=== PATIENT | female | born 1960 ===

== ENCOUNTER 2021-06-21 08:29 | Outpatient (REF) | payer BC, SELFPAY ==
--- NOTE | ~2021-06-21 | XR_ITS ---
EXAMINATION: XR CHEST CLINICAL INFORMATION: Cough COMPARISON: None TECHNIQUE: 2 views of the chest were obtained. FINDINGS: The cardiac and mediastinal contours are normal. The lungs are clear. There is no pleural effusion or pneumothorax. Bony structures are unremarkable. XR/XR chest 2V IMPRESSION: Unremarkable examination.
[2021-06-21 11:27] LABS: Glucose Urine UA NEG (NEG); Leukocyte Esterase Urine NEG (NEG); Nitrite Urine NEG (NEG); PH 5.5 (5.0-8.0); Specific Gravity - Urine >= 1.030 (1.005-1.025); Urine Blood NEG (NEG); Urine Ketones NEG (NEG); Urine Protein NEG (NEG-TRACE)
[2021-06-21 11:36] LABS: Appearance Urine TURBID; Color Urine YELLOW
[2021-06-21 11:49] LABS: Alanine Aminotransferase 18 U/L (0-31); Albumin Level 4.3 g/dL (3.5-5.0); Alkaline Phosphatase 75 U/L (39-117); Anion Gap 12 (12-20); Aspartate Amino Transferase 18 U/L (5-31); Bilirubin Total 0.4 mg/dL (0.0-1.0); Blood Urea Nitrogen 13 mg/dL (9-16); Calcium 9.3 mg/dL (8.4-10.2); Carbon Dioxide 26 mmol/L (22-29); Chloride 108 mmol/L (96-108); Cholesterol 206 mg/dL; Estimated Glomerular Filt Rate > 60; Glucose Fasting 93 mg/dL (60-99); HDL Cholesterol 44 mg/dL; LDL Cholesterol Calculated 113 mg/dl; Potassium 4.2 mmol/L (3.3-5.1); Sodium 142 mmol/L (135-145); Triglycerides 246 mg/dL
[2021-06-21 11:58] LABS: Hematocrit 43.4 % (37-47); Hemoglobin 14.1 g/dl (12.0-16.0); Mean Corpuscular HGB Conc 32.5 g/dl (31.0-35.0); Mean Corpuscular Hemoglobin 30.1 pg (27.0-33.0); Mean Corpuscular Volume 92.7 fL (80-98); Mean Platelet Volume 10.6 fL (9.4-12.3); Platelet Count 246 X10*3/uL (160-400); Red Blood Count 4.68 X10*6/uL (4.20-5.50); Red Cell Distribution Width 13.1 % (11.0-16.0); White Blood Count 7.6 X10*3/uL (4.8-10.8)
[2021-06-21 12:05] LABS: Amorphous Sediment Urine 3+ /LPF; Bacteria Urine TRACE /LPF; RBC Urine 0 /HPF (0); Squamous Epithelial Cell Urine 1+ /LPF; WBC Urine 0 /HPF (0-4)
== END 2021-06-21 08:30 | disposition home or self-care (01) ==
LOC: HO.HMGCX 08:29
PROVIDERS: PCP Internal Medicine; Visit Provider Internal Medicine
DX: Z00.00 Encounter for general adult medical examination without abnormal findings (principal); R05 Cough; R10.9 Unspecified abdominal pain
CPT/HCPCS: 36415; 71046; 80053; 80061; 81001; 85027

== ENCOUNTER 2021-07-05 09:00 | Outpatient (REF) | payer BC, SELFPAY ==
--- NOTE | ~2021-07-05 | US_ITS ---
EXAMINATION: US ABDOMEN COMPLETE CLINICAL INFORMATION: Unspecified abdominal pain. COMPARISON: None. TECHNIQUE: Real-time imaging of the abdominal viscera. FINDINGS: PANCREAS: Normal. ABDOMINAL AORTA: The proximal, mid, and distal segments are normal in caliber. INFERIOR VENA CAVA: Visualized portions are normal. LIVER: The liver is normal in size. The liver contour is normal. Increased hepatic parenchymal echogenicity. No focal hepatic lesion. There is no intrahepatic biliary duct dilatation seen. GALLBLADDER: Normal. The gallbladder is physiologically distended without evidence of stones, sludge, polyps, wall thickening or pericholecystic fluid. COMMON BILE DUCT: Normal in caliber measuring 0.53 cm in diameter. RIGHT KIDNEY: Probable small parapelvic cysts. No hydronephrosis or renal calculi. The kidney measures 11.9 cm in maximum dimension. LEFT KIDNEY: Probable small parapelvic cysts. No hydronephrosis or renal calculi. The kidney measures 11.7 cm in maximum dimension. SPLEEN: Normal. The spleen measures 9.2 cm in maximum dimension. FREE FLUID: None. US/US abdomen complete IMPRESSION: Probable small parapelvic renal cysts. Findings are not clinically significant and no follow-up imaging is recommended. Increased hepatic parenchymal echogenicity, which can be seen in the setting of steatosis. Underlying hepatocellular disease cannot be excluded. No hepatic parenchyma lesion or biliary ductal dilatation. Otherwise unremarkable examination.
== END 2021-07-05 09:01 | disposition home or self-care (01) ==
LOC: HO.HMGCX 09:00
PROVIDERS: PCP Internal Medicine; Visit Provider Internal Medicine
DX: Z00.00 Encounter for general adult medical examination without abnormal findings (principal); R10.9 Unspecified abdominal pain; R05 Cough
CPT/HCPCS: 76700

== ENCOUNTER 2021-07-19 09:08 | Outpatient (REF) | payer BC, SELFPAY ==
[2021-07-21 08:15] LABS: SARS COV2 IgG Negative (Negative)
== END 2021-07-19 09:09 | disposition home or self-care (01) ==
LOC: HO.HMGCLDS 09:08
PROVIDERS: PCP Internal Medicine; Visit Provider Internal Medicine
DX: Z20.822 Contact with and (suspected) exposure to COVID-19 (principal)
CPT/HCPCS: 36415; 86769

== ENCOUNTER 2021-12-14 10:47 | Outpatient (REF) | payer BC, SELFPAY ==
--- NOTE | ~2021-12-14 | XR_ITS ---
EXAMINATION: XR SHOULDER, RIGHT CLINICAL INFORMATION: Pain. COMPARISON: None TECHNIQUE: AP external rotation, Grashey, scapular Y, and axillary views of the right shoulder. FINDINGS: Bony mineralization is normal. The glenohumeral joint is intact and shows very mild peripheral osteophyte formation. The acromioclavicular and coracoclavicular intervals are normal. No fracture or dislocation is seen. There is a downsloping acromion, with small distal acromial undersurface osteophyte. There is subchondral sclerosis of the greater tuberosity of the proximal right humerus. No soft tissue calcifications is seen. There is no foreign body. No right pneumothorax is seen. XR/XR shoulder RT min 2V IMPRESSION: 1. No fracture or dislocation is seen. 2. There is very mild osteoarthritic change of the left glenohumeral joint. 3. Findings suggest possible right rotator cuff impingement. No calcific tendinitis is noted.
[2021-12-14 13:52] LABS: Hematocrit 41.7 % (37.0-47.0); Hemoglobin 13.5 g/dl (12.0-16.0); Mean Corpuscular HGB Conc 32.4 g/dl (31.0-35.0); Mean Corpuscular Hemoglobin 29.6 pg (27.0-33.0); Mean Corpuscular Volume 91.4 fL (80.0-98.0); Mean Platelet Volume 10.2 fL (9.4-12.3); Platelet Count 286 X10*3/uL (160-400); Red Blood Count 4.56 X10*6/uL (4.20-5.50); Red Cell Distribution Width 12.8 % (11.0-16.0); White Blood Count 7.5 X10*3/uL (4.8-10.8)
[2021-12-14 14:19] LABS: Alanine Aminotransferase 22 U/L (0-31); Albumin Level 4.1 g/dL (3.5-5.0); Alkaline Phosphatase 67 U/L (39-117); Anion Gap 12 (12-20); Aspartate Amino Transferase 21 U/L (5-31); Bilirubin Total 0.4 mg/dL (0.0-1.0); Blood Urea Nitrogen 16 mg/dL (9-16); Calcium 9.1 mg/dL (8.4-10.2); Carbon Dioxide 25 mmol/L (22-29); Chloride 107 mmol/L (96-108); Cholesterol 223 mg/dL; Estimated Glomerular Filt Rate > 60; Glucose Fasting 90 mg/dL (60-99); HDL Cholesterol 50 mg/dL; LDL Cholesterol Calculated 142 mg/dl; Potassium 4.3 mmol/L (3.3-5.1); Sodium 140 mmol/L (135-145); Total Protein 6.9 g/dL (6.5-8.0); Triglycerides 159 mg/dL
[2021-12-14 14:28] LABS: TSH reflex Free T4 1.32 uIU/mL (0.32-4.0)
[2021-12-14 14:49] LABS: Estimated Average Glucose 120 mg/dL; Hemoglobin A1C 142.6367 umol/L; Hemoglobin A1c % 5.8 %
== END 2021-12-14 10:48 | disposition home or self-care (01) ==
LOC: HO.HMGCX 10:47
PROVIDERS: PCP Internal Medicine; Visit Provider Internal Medicine
DX: Z00.00 Encounter for general adult medical examination without abnormal findings (principal); M25.511 Pain in right shoulder
CPT/HCPCS: 36415; 73030; 80053; 80061; 83036; 84443; 85027

== ENCOUNTER 2022-04-06 10:43 | Outpatient (REF) | payer BC, SELFPAY ==
--- NOTE | ~2022-04-06 | XR_ITS ---
EXAMINATION: XR CHEST CLINICAL INFORMATION: Cough COMPARISON: Previous chest x-ray June 2021 TECHNIQUE: 2 views of the chest were obtained. FINDINGS: No significant abnormality is noted involving the heart, lungs, mediastinum, bony thorax or soft tissues. XR/XR chest 2V IMPRESSION: Unremarkable examination.
[2022-04-06 13:56] LABS: Hematocrit 43.3 % (37.0-47.0); Hemoglobin 14.5 g/dl (12.0-16.0); Mean Corpuscular HGB Conc 33.5 g/dl (31.0-35.0); Mean Corpuscular Hemoglobin 30.1 pg (27.0-33.0); Mean Platelet Volume 10.1 fL (9.4-12.3); Platelet Count 294 X10*3/uL (160-400); Red Blood Count 4.81 X10*6/uL (4.20-5.50); White Blood Count 8.6 X10*3/uL (4.8-10.8)
[2022-04-06 14:08] LABS: Alanine Aminotransferase 33 U/L (0-31); Albumin Level 4.2 g/dL (3.5-5.0); Alkaline Phosphatase 74 U/L (39-117); Anion Gap 13 (12-20); Aspartate Amino Transferase 24 U/L (5-31); Bilirubin Total 0.6 mg/dL (0.0-1.0); Blood Urea Nitrogen 10 mg/dL (9-16); Calcium 9.4 mg/dL (8.4-10.2); Carbon Dioxide 26 mmol/L (22-29); Chloride 105 mmol/L (96-108); Estimated Glomerular Filt Rate > 60; Glucose Fasting 90 mg/dL (60-99); Potassium 3.9 mmol/L (3.3-5.1); Sodium 140 mmol/L (135-145); Total Protein 7.1 g/dL (6.5-8.0)
== END 2022-04-06 10:44 | disposition home or self-care (01) ==
LOC: HO.HMGCX 10:43
PROVIDERS: PCP Internal Medicine; Visit Provider Internal Medicine
DX: R05.9 Cough, unspecified (principal); R10.9 Unspecified abdominal pain
CPT/HCPCS: 36415; 71046; 80053; 85027

== ENCOUNTER 2022-05-10 08:56 | Outpatient (REF) | payer BC, SELFPAY ==
--- NOTE | ~2022-05-10 | US_ITS ---
EXAMINATION: US ABDOMEN COMPLETE CLINICAL INFORMATION: Unspecified abdominal pain. COMPARISON: Ultrasound abdomen complete 07/05/2021. TECHNIQUE: Real-time imaging of the abdominal viscera. FINDINGS: PANCREAS: Normal. ABDOMINAL AORTA: The proximal, mid, and distal segments are normal in caliber. INFERIOR VENA CAVA: Visualized portions are normal. LIVER: The liver is normal in size. The liver contour is normal. There is diffuse increased echogenicity of the liver without focal lesion. No focal hepatic lesion. There is no intrahepatic biliary duct dilatation seen. GALLBLADDER: Normal. The gallbladder is physiologically distended without evidence of stones, sludge, polyps, wall thickening or pericholecystic fluid. COMMON BILE DUCT: Normal in caliber measuring 0.6 cm in diameter. RIGHT KIDNEY: There is an anechoic cyst versus a dilated calyx in the midpole. No hydronephrosis or renal calculi. The kidney measures 12.2 cm in maximum dimension. LEFT KIDNEY: There is an extrarenal left kidney pelvis. No hydronephrosis. No renal calculi or focal parenchymal lesions. The kidney measures 11.7 cm in maximum dimension. SPLEEN: Normal. The spleen measures 9.7 cm in maximum dimension. FREE FLUID: None. US/US abdomen complete IMPRESSION: Mild hepatic steatosis without focal lesion. Prominent midpole right renal calyx versus a small peripelvic cyst. No major change compared to previous ultrasound 07/05/2021.
== END 2022-05-10 08:57 | disposition home or self-care (01) ==
LOC: HO.HMGCX 08:56
PROVIDERS: PCP Internal Medicine; Visit Provider Internal Medicine
DX: R10.9 Unspecified abdominal pain (principal)
CPT/HCPCS: 76700

== ENCOUNTER 2022-08-01 11:51 | Outpatient (REF) | payer BC, SELFPAY ==
[2022-08-01 12:48] LABS: Lipase 27 U/L (8-78)
[2022-08-01 13:14] LABS: Folate 10.9 ng/mL (> or = 4.0); Vitamin B12 413 pg/mL (200-900)
[2022-08-03 14:37] LABS: Immunoglobulin A 139 mg/dL (70-320)
[2022-08-03 21:31] LABS: Transglutaminase Ab IgG <1.0 U/mL; Transglutaminase IgA <1.0 U/mL
[2022-08-04 12:17] LABS: Vitamin D 25-OH, D2 <4 ng/mL; Vitamin D 25-OH, D3 20 ng/mL; Vitamin D 25-OH, Total 20 ng/mL (30-100)
== END 2022-08-01 11:52 | disposition home or self-care (01) ==
LOC: HO.LAB 11:51
PROVIDERS: PCP Internal Medicine; Visit Provider Nurse Practitioner Family
DX: R19.7 Diarrhea, unspecified (principal); E55.9 Vitamin D deficiency, unspecified; R10.9 Unspecified abdominal pain
CPT/HCPCS: 36415; 82306; 82607; 82746; 82784; 83690; 86364

== ENCOUNTER 2022-08-03 09:35 | Outpatient (REF) | payer BC, SELFPAY ==
[2022-08-03 11:21] LABS: Appearance Urine Clear; Color Urine Yellow; Glucose Urine UA Negative (Negative); Leukocyte Esterase Urine Small (1+) (Negative); Nitrite Urine Negative (Negative); UMIC TRIGGER UACC YES; Urine Blood Moderate (2+) (Negative); Urine Ketones Negative (Negative); Urine Protein Negative (Neg-Trace)
[2022-08-03 11:42] LABS: Bacteria Urine None Seen (None Seen); Hyaline Casts Urine 0-2 /LPF (0-2); Squamous Epithelial Cell Urine 0-2 /HPF (0-2); UACC Culture Trigger YES; WBC Urine 0-5 /HPF (0-5)
[2022-08-09 18:11] LABS: Pancreatic Elastase-1 >500 mcg/g
== END 2022-08-03 09:36 | disposition home or self-care (01) ==
LOC: HO.HMGCLDS 09:35
PROVIDERS: Absent Provider Internal Medicine; PCP Internal Medicine; Visit Provider Nurse Practitioner Family
DX: K21.9 Gastro-esophageal reflux disease without esophagitis (principal); R10.9 Unspecified abdominal pain
CPT/HCPCS: 81001; 82656; 87086; 87338

== ENCOUNTER 2022-08-09 11:31 | Outpatient (REF) | payer BC, SELFPAY ==
[2022-08-09 16:54] LABS: Appearance Urine Clear; Color Urine Yellow; Glucose Urine UA Negative (Negative); Leukocyte Esterase Urine Trace (Negative); Nitrite Urine Negative (Negative); PH 5.5 (5.0-9.0); UMIC TRIGGER UACC YES; Urine Blood Negative (Negative); Urine Ketones Negative (Negative); Urine Protein Negative (Neg-Trace)
[2022-08-09 16:57] LABS: Bacteria Urine None Seen (None Seen); Hyaline Casts Urine 0-2 /LPF (0-2); RBC Urine 0-2 /HPF (0-2); Squamous Epithelial Cell Urine 0-2 /HPF (0-2); WBC Urine 0-5 /HPF (0-5)
== END 2022-08-09 11:32 | disposition home or self-care (01) ==
LOC: HO.HMGCLDS 11:31
PROVIDERS: Absent Provider Nurse Practitioner Family; PCP Internal Medicine; Visit Provider Internal Medicine
DX: R32 Unspecified urinary incontinence (principal)
CPT/HCPCS: 81001

== ENCOUNTER 2022-12-06 10:31 | Outpatient (REF) | payer BC, SELFPAY ==
[2022-12-06 14:03] LABS: MANUAL DIFF FLAG NO
[2022-12-06 14:08] LABS: Appearance Urine Clear; Color Urine Yellow; Glucose Urine UA Negative (Negative); Leukocyte Esterase Urine Negative (Negative); Nitrite Urine Negative (Negative); Specific Gravity - Urine <= 1.005 (1.005-1.025); Urine Blood Negative (Negative); Urine Ketones Negative (Negative); Urine Protein Negative (Neg-Trace)
[2022-12-06 14:10] LABS: Basophils Absolute Auto 0.1 X10*3/uL (0.0-0.2); Basophils Percent Auto 0.6 % (0-2); Eosinophils Absolute Auto 0.6 X10*3/uL (0.0-0.4); Eosinophils Percent Auto 7.4 % (0-4); Hematocrit 43.3 % (37.0-47.0); Hemoglobin 14.4 g/dl (12.0-16.0); Imm Gran Abs Auto 0.02 X10*3/uL (0.00-0.03); Imm Gran Pct Auto 0.2 % (0.0-0.4); Lymphocytes Absolute Auto 3.1 X10*3/uL (1.2-4.9); Lymphocytes Percent Auto 38.5 % (20-40); Mean Corpuscular HGB Conc 33.3 g/dl (31.0-35.0); Mean Corpuscular Hemoglobin 30.3 pg (27.0-33.0); Mean Corpuscular Volume 91.2 fL (80.0-98.0); Mean Platelet Volume 10.9 fL (9.4-12.3); Monocytes Absolute Auto 0.8 X10*3/uL (0.1-1.2); Monocytes Percent Auto 10.2 % (2-11); Neutrophils Absolute Auto 3.5 x10*3/uL (2.0-8.3); Neutrophils Percent Auto 43.1 % (45-73); Platelet Count 254 X10*3/uL (160-400); Red Blood Count 4.75 X10*6/uL (4.20-5.50); Red Cell Distribution Width 13.1 % (11.0-16.0)
[2022-12-06 15:46] LABS: Alanine Aminotransferase 23 U/L (0-31); Albumin Level 4.2 g/dL (3.5-5.0); Anion Gap 12 (12-20); Aspartate Amino Transferase 23 U/L (5-31); Bilirubin Total 0.6 mg/dL (0.0-1.0); Blood Urea Nitrogen 16 mg/dL (9-16); Calcium 9.2 mg/dL (8.4-10.2); Carbon Dioxide 26 mmol/L (22-29); Chloride 105 mmol/L (96-108); Cholesterol 260 mg/dL; Estimated Glomerular Filt Rate > 60; Glucose Fasting 92 mg/dL (60-99); HDL Cholesterol 50 mg/dL; LDL Cholesterol Calculated 180 mg/dl; Potassium 4.3 mmol/L (3.3-5.1); Sodium 139 mmol/L (135-145); TSH reflex Free T4 1.58 uIU/mL (0.32-4.0); Triglycerides 151 mg/dL
[2022-12-06 16:17] LABS: Alkaline Phosphatase 81 U/L (39-117)
== END 2022-12-06 10:32 | disposition home or self-care (01) ==
LOC: HO.HMGCLDS 10:31
PROVIDERS: Visit Provider Internal Medicine
DX: Z00.00 Encounter for general adult medical examination without abnormal findings (principal); R32 Unspecified urinary incontinence
CPT/HCPCS: 36415; 80053; 80061; 81003; 84443; 85025

== ENCOUNTER 2022-12-07 10:00 | Outpatient (RCR) | payer BC, SELFPAY ==
--- NOTE | 2022-11-25 14:22 | MHC.PT.EP ---
[facility] [place] Office [place] Office [place] Office [address] Fito Vieyra [address] [phone] F: [phone] F: [phone] F: [phone] F: [phone] Physical Therapy Plan of Care Date of Evaluation: Date of Surgery: Diagnosis: Dorsalgia/Low back pain Assessment: Patient is a 62 year old R handed German speaking female who presents with s/s consistent with dorsalgia, low back pain. 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 She had pain following a hysterectomy in July. Patient past medical history includes GERD. Current impairments include pain, posture, ROM, strength, body mechanics, activity tolerance and functional mobility. Functional limitations include decreased ability to sleep, sit, bend, lift, walk and work . Patient is motivated with good rehab potential. Skilled PT will address impairments and functional limitations in order to achieve goals. Frequency and Duration: The patient will be seen 2x/week for 5 weeks Short Term Goals: I with HEP - 2 weeks pain free rotation 75% b/l - 3 weeks Able to sleep >5 hours without pain waking pt up - 3 weeks Net Fisher Goals: Oswestry 20% or less - 5 weeks Pain free RTW - 5 weeks TTP absent - 5 weeks Demo proper floor to waist lift mechanics 15# - 5 weeks Treatment Plan: Modalities to reduce pain, spasms and effusion. Manual therapy to restore motion and function. Therapeutic exercise to improve strength and flexibility. Neuromuscular re-education for posture and balance. Therapeutic activities to return to functional activities of daily living. Electronically signed by: Pedrito Wells, PT Please sign and return to therapist. Thank you for your referral.
--- NOTE | 2023-01-27 08:53 | MHC.PT.DC ---
[facility] [place] Office [place] Office [place] Office [address] Fito Vieyra [address] [phone] F: [phone] F: [phone] F: [phone] F: [phone] Physical Therapy Discharge Report Diagnosis: Dorsalgia/Low back pain Date of Surgery: Date of Evaluation: 11/25/22 Date of Discharge: 12/18/22 Treatments to Date: 5 Cancellations to Date: No Shows to Date: Discharge Status: Improved Function Independent with HEP Patient Elected to Stop Discharge Summary: 12/07/22: pt progressing well with skilled PT. reduced ttp and progressed strength ex. 12/05/22: pt has been noticing reduction in s/s. we will continue to progress as tolerated with strength and flex. 11/30/22: pt notes maybe slight improvement. we did update HEP today and added postural ex. pt requires cues for correcting mechanics. limited positional awareness. 11/28/22: no change in s/s today. we will add to HEP NV with stretching as long as pt responds well after today. Patient is a 62 year old R handed Luxembourgish speaking female who presents with s/s consistent with dorsalgia, low back pain. 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 She had pain following a hysterectomy in July. Patient past medical history includes GERD. Current impairments include pain, posture, ROM, strength, body mechanics, activity tolerance and functional mobility. Functional limitations include decreased ability to sleep, sit, bend, lift, walk and work . Patient is motivated with good rehab potential. Skilled PT will address impairments and functional limitations in order to achieve goals. Electronically signed by: Pedrito Wells, PT Please sign and return to therapist. Thank you for your referral.
== END 2023-01-27 08:54 | disposition home or self-care (01) ==
LOC: HO.PTCHIC 10:00
PROVIDERS: PCP Internal Medicine; Visit Provider Internal Medicine
DX: M54.9 Dorsalgia, unspecified (principal)
CPT/HCPCS: 97110; 97140; 97161

== ENCOUNTER 2023-02-13 10:10 | Outpatient (REF) | payer BC, SELFPAY ==
--- NOTE | ~2023-02-13 | XR_ITS ---
EXAMINATION: XR CHEST CLINICAL INFORMATION: Cough. COMPARISON: Most recent chest radiograph dated 04/06/2022. TECHNIQUE: 2 views of the chest were obtained. FINDINGS: The lungs are clear. The cardiomediastinal silhouette is normal in size. There is no pleural effusion or pneumothorax. No acute osseous abnormality. XR/XR chest 2V IMPRESSION: No acute cardiopulmonary findings.
== END 2023-02-13 10:11 | disposition home or self-care (01) ==
LOC: HO.HMGCX 10:10
PROVIDERS: PCP Internal Medicine; Visit Provider Internal Medicine
DX: R05.9 Cough, unspecified (principal)
CPT/HCPCS: 71046

== ENCOUNTER 2023-03-06 09:39 | Outpatient (REF) | payer BC, SELFPAY ==
[2023-03-06 12:05] LABS: Alanine Aminotransferase 21 U/L (0-31); Albumin Level 4.2 g/dL (3.5-5.0); Alkaline Phosphatase 82 U/L (39-117); Anion Gap 11 (12-20); Aspartate Amino Transferase 20 U/L (5-31); Bilirubin Total 0.7 mg/dL (0.0-1.0); Blood Urea Nitrogen 14 mg/dL (9-16); Carbon Dioxide 25 mmol/L (22-29); Chloride 109 mmol/L (96-108); Cholesterol 231 mg/dL; Estimated Glomerular Filt Rate > 60; Glucose Fasting 97 mg/dL (60-99); HDL Cholesterol 49 mg/dL; LDL Cholesterol Calculated 147 mg/dl; Potassium 4.3 mmol/L (3.3-5.1); Sodium 141 mmol/L (135-145); Total Protein 6.8 g/dL (6.5-8.0); Triglycerides 175 mg/dL
== END 2023-03-06 09:40 | disposition home or self-care (01) ==
LOC: HO.HMGCLDS 09:39
PROVIDERS: PCP Internal Medicine; Visit Provider Internal Medicine
DX: E78.5 Hyperlipidemia, unspecified (principal)
CPT/HCPCS: 36415; 80053; 80061

== ENCOUNTER 2023-04-20 10:31 | Outpatient (REF) | payer BC, SELFPAY ==
[2023-04-20 14:20] LABS: Appearance Urine Turbid; Color Urine Yellow; Glucose Urine UA Negative (Negative); Leukocyte Esterase Urine Negative (Negative); Nitrite Urine Negative (Negative); PH 5.5 (5.0-9.0); Urine Blood Negative (Negative); Urine Ketones Negative (Negative); Urine Protein Negative (Neg-Trace)
== END 2023-04-20 10:32 | disposition home or self-care (01) ==
LOC: HO.HMGCLDS 10:31
PROVIDERS: PCP Internal Medicine; Visit Provider Internal Medicine
DX: R32 Unspecified urinary incontinence (principal)
CPT/HCPCS: 81003

== ENCOUNTER 2023-05-01 07:03 | Day surgery (SDC) | payer BC, SELFPAY ==
[2023-04-27 10:06] VITALS: BMI 31.8
[2023-05-01 07:18] VITALS: BMI 31.2
[2023-05-01 07:36] VITALS: BP 149/87; PULSE 65; RESP 16; TEMP 36.7; O2SAT 96
--- NOTE | 2023-05-01 07:40 | P.CONAN_ITS ---
Documented by User: Yue Bravo NP 04/28/23 12:29 HPI - Anesthesia Eval Consult details Narrative: 63yo F for Upper Endoscopy and Colonoscopy PMFSH Active Problems Active Problems: All Active Problems (Updated 03/02/23 @ 11:51 by Ursula Squires MD) Asthma (Acute) Allergic reaction (Acute) Hyperlipidemia (Acute) Endometrial adenocarcinoma (Acute) Postmenopausal bleeding (Acute) Back pain (Acute) Urinary incontinence (Acute) Hx of colonoscopy (Acute) Shoulder pain, right (Acute) Normal pelvic exam (Acute) Normal breast exam (Acute) Upper respiratory tract infection (Acute) GERD (gastroesophageal reflux disease) (Acute) Annual physical exam (Acute) Cough (Acute) Abdominal pain (Acute) Past Medical History Medical History Abdominal pain Annual physical exam Cough GERD (gastroesophageal reflux disease) Normal breast exam Normal pelvic exam Shoulder pain, right Family History Family History Father No problems noted. Mother No problems noted. 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 Current occupational exposures/hazards: No Cognitive needs: No Hearing needs: No Vision needs: No Meds Allergies Allergy/AdvReac Type Severity Reaction Status Date / Time pravastatin AdvReac Intermediate myalgia Verified 03/02/23 11:15 Exam Exam Date and Time: April 28, 2023 1227 Height,Weight and Vital Signs: Height 5 ft Weight 73.936 kg Pertinent Lab Results Pertinent Lab Results: Laboratory Tests 12/06/22 03/06/23 11:01 09:42 WBC 8.0 Hgb 14.4 Hct 43.3 Plt Count 254 Sodium 141 Potassium 4.3 Chloride 109 H Carbon Dioxide 25 BUN 14 Creatinine 0.72 Assessment and Plan Assessment Anesthesia Assessment: Chart Reviewed Documented by User: Catie Morrison DO 05/01/23 07:51 PMFSH Past Medical History Medical History Abdominal pain Annual physical exam Cough GERD (gastroesophageal reflux disease) Normal breast exam Normal pelvic exam Shoulder pain, right Family History Family History Father No problems noted. Mother No problems noted. 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 Current occupational exposures/hazards: No Cognitive needs: No Hearing needs: No Vision needs: No Meds Allergies Allergy/AdvReac Type Severity Reaction Status Date / Time pravastatin AdvReac Intermediate myalgia Verified 03/02/23 11:15 Exam Exam Date and Time: May 01, 2023 0737 Height,Weight and Vital Signs: Height 5 ft Weight 73.936 kg Vital Signs Temperature 98.1 F 05/01/23 07:36 Pulse Rate 65 05/01/23 07:36 Respiratory Rate 16 05/01/23 07:36 Blood Pressure 149/87 H 05/01/23 07:36 Pulse Oximetry 96 05/01/23 07:36 Oxygen Delivery Method Room Air 05/01/23 07:36 Temperature 98.1 F 05/01/23 07:36 Pulse Rate 65 05/01/23 07:36 Respiratory Rate 16 05/01/23 07:36 Blood Pressure 149/87 H 05/01/23 07:36 Pulse Oximetry 96 05/01/23 07:36 Oxygen Delivery Method Room Air 05/01/23 07:36 Airway Mallampati Class: II TM Dist: >3cm Neck ROM: Full Denture: Upper and Lower Heart: S1S2 Lungs: CTAB Assessment and Plan Assessment Anesthesia Assessment: Anesthesia Plan Discussed and Chart Reviewed Final Anesthetic Review History of Problems with Anesthesia: Yes (PONV) NPO: Yes ASA Class: II Final Preanesthetic Review: No Changes in Pt Med Stat, Meds/Allgs Chart Reviewed, Consent Obtained/Reviewed and Anes Risks/Benef Reviewed Patient Risk: Low Procedure Risk: Low Anesthetic Plan Anesthetic Plan: MAC: and Agree w/ Assess. and Plan Disposition: Standard PACU
--- NOTE | 2023-05-01 08:26 | MHC.SHP ---
Pre-Procedural Eval Section A Date of Service: 05/01/23 The patient is an INPATIENT: No The History & Physical has been completed within 30 days and I have reviewed it.: No Section B Chief Complaint: Abdominal distension (gaseous),reflux disease Relevant Family History (Specify if Yes): No Relevant Social History: None Present Medications: see Short Stay Collaborative assessment Medical History: Significant History (Cough GERD (gastroesophageal reflux disease) Normal breast exam Normal pelvic exam Shoulder pain, right) History of Previous Operations: Relevant previous surgery/procedure and date(s) (hx of colonoscopy) Allergies: Allergies Allergy/AdvReac Type Severity Reaction Status Date / Time pravastatin AdvReac Intermediate myalgia Verified 03/02/23 11:15 Review of Systems Sugical H&P ROS: Negative: Constitution, Cardiovascular, Respiratory and Gastrointestinal Exam Surgical H&P Exam: Normal: Heart, Normal: Lungs, Normal: Extremities and Normal: Abdomen Plan Diagnosis/Plan: Unchanged I have reviewed the history and physical and performed a pertinent physical examination on my patient. No changes have occurred unless specified. Time Spent With Patient Time: Total time managing care of this patient today ____ minutes.
--- NOTE | 2023-05-01 08:32 | P.BOP_ITS ---
Brief Operative Note Date of Service: 05/01/23 Pre-op diagnosis: screening, abdominal bloating, GERD Post-op diagnosis: other ( GERD, gastritis, diverticulosis?) Procedure: FLEXIBLE TRANSORAL UPPER GASTROINTESTINAL ENDOSCOPY WITH BIOPSIES AND COLONOSCOPY TILL CECUM Surgeon: Alexa Becerril MD Anesthesia: MAC Was an Medical Staff Services Manager used for this Procedure?: Yes Medical Staff Services Manager: Merline Bailon Estimated blood loss (mL): 0 Pathology: other (A. small bowel bxs, R/O celiac B. gastric antrum bxs, R/O H. pylori C. gastric body bxs) Condition: stable Disposition: PACU
--- NOTE | 2023-05-01 08:33 | P.OP_ITS ---
Operative Note Operative Note Date of Service: 05/01/23 Narrative: FLEXIBLE TRANSORAL UPPER GASTROINTESTINAL ENDOSCOPY WITH BIOPSIES AND COLONOSCOPY TILL CECUM Pre-op diagnosis: screening, GERD, postprandial bloating Post-op diagnosis: GERD, gastritis, diverticulosis? Endoscopist:? Alexa Becerril MD Anesthesia:?MAC UPPER ENDOSCOPY Consent: Indications for the procedure and potential complications of bleeding, perforation, reaction to medications and missed diagnosis were discussed with the patient and informed consent was obtained. Instrument: Olympus GIF H 190 mid size upper endoscope Monitoring: Vital signs and clinical assessment, continuous EKG monitoring, Pulse oximetry, Carbon Dioxide monitoring and blood pressure monitoring were done throughout the procedure. Procedure: The patient was placed in the left lateral decubitis position and pre-procedure medications were administered and a bite block was placed. The endoscope was inserted into the mouth and advanced under direct vision to the third part of duodenum. A careful inspection was made as the upper endoscope was withdrawn including a retroflexed examination of the proximal stomach; Findings and interventions are described below. Findings: Larynx: Normal Esophagus: GE junction at 35 cms. No esophagitis or Jackson's. Stomach: Moderate diffuse gastric erythema. Biopsies were obtained. Grade 2 flap valve on retroflexed examination of the cardia. Duodenum: Normal bulb and descending duodenum. Biopsies were obtained from 3rd part of duodenum to check for celiac sprue. Intervention: Biopsies as noted above COLONOSCOPY PROCEDURE NOTE Consent: Indications for the procedure and potential complications of bleeding, perforation, reaction to medications and missed diagnosis were discussed with the patient and informed consent was obtained. Instrument: Olympus PCF H 190 L variable stiffness pediatric colonoscope Monitoring: Vital signs and clinical assessment, intermittent blood pressure monitoring, continuous EKG monitoring, Pulse oximetry and Carbon Dioxide monitoring were done throughout the procedure. Colon withdrawl time was 11 minutes. Procedure: The patient was placed in the left lateral decubitis position and pre-procedure medications were administered. After a digital rectal examination of the ano-rectum, the video colonoscope was inserted into the rectum and advanced through the colon to the cecum. The colonoscope was slowly withdrawn in a retrograde panoramic fashion and the colon mucosa was carefully examined including a retroflexed view of the rectum. Findings and interventions are described below. Procedure Difficulty: : Without difficulty Findings: Terminal Ileum: Not evaluated Cecum: Normal Ascending Colon: Normal Transverse Colon: Normal Descending Colon: Normal Sigmoid Colon: Moderate diverticulosis Rectum: Normal Ano-rectum: Normal Colon preparation: Good after copious irrigation and fair in the left colon due to undigested vegetable matter which could not be suctioned. Impression and Post Procedure Diagnosis: Endoscopy Findings: STOMACH: moderate diffuse gastritis. DUODENUM: normal - biopsied to check for celiac sprue Colonoscopy Findings: No polyps were detected. Moderate diverticulosis seen in the sigmoid colon Plan: Await pathology results Patient has an appointment on 05/16/23 in the [facility] with Valentina Yang FNP- [facility]. Repeat Colonoscopy interval based on path results - in 5 years due to fair prep in the left colon. Above findings were reviewed with the patient and GERD and diverticulosis handouts were given in the discharge area
[2023-05-01 09:15] VITALS: BP 116/86; PULSE 79; RESP 18; TEMP 36.1; O2SAT 98
[2023-05-01 09:30] VITALS: BP 116/86; PULSE 62; RESP 18; TEMP 36.6; O2SAT 96
[2023-05-01 09:45] VITALS: BP 110/89; PULSE 56; RESP 18; TEMP 36.6; O2SAT 98
--- NOTE | 2023-05-01 10:18 | PC.NURSE ---
vaishali metal building assembler present for discharge instructions.
== END 2023-05-01 10:18 | disposition home or self-care (01) ==
PROVIDERS: PCP Internal Medicine; Visit Provider Internal Medicine Gastroenterology
PROC: (CPT 45378; principal; 2023-05-01 08:30)
DX: Z12.11 Encounter for screening for malignant neoplasm of colon (principal); R14.0 Abdominal distension (gaseous); K57.30 Diverticulosis of large intestine without perforation or abscess without bleeding; K64.8 Other hemorrhoids; K21.9 Gastro-esophageal reflux disease without esophagitis; K29.50 Unspecified chronic gastritis without bleeding; J45.909 Unspecified asthma, uncomplicated; E78.5 Hyperlipidemia, unspecified; Z88.8 Allergy status to other drugs, medicaments and biological substances; Z87.891 Personal history of nicotine dependence
CPT/HCPCS: 45378; 43239; 88305; 88342

== ENCOUNTER → 2023-05-16 10:01 | Outpatient (BNVA) | payer BC, SELFPAY | PROVIDERS: PCP Internal Medicine; Visit Provider Nurse Practitioner Family ==

== ENCOUNTER 2023-08-10 09:47 | Outpatient (AMB) | payer BC, SELFPAY ==
--- NOTE | 2023-08-10 09:48 | MHC.PC.OV ---
Vital Signs 08/10/23 09:49 Height 5 ft Weight 164 lb BMI 32.0 BP 130/76 Blood Pressure Location Lt brachial Position Sitting Pulse 83 Pulse Source Pulse Oximeter Pulse Oximetry (%) 96 Oxygen Delivery Method Room Air Intake Visit Reasons: Follow up Intake Note: Pt is here today for a follow up visit on cough. Pt states that she still has the cough. Allergies pravastatin Adverse Reaction (Intermediate, Verified 08/10/23 09:53) myalgia Medication List - Last Reconciled 08/10/23 by Ursula Squires MD Advair Diskus 100-50 mcg/dose (fluticasone propion-salmeterol) 1 inh inhalation BID NS albuterol sulfate 90 mcg/actuation (ProAir HFA) 2 puffs inhalation Q6H PRN meclizine 25 mg PO BID PRN omeprazole 20 mg PO DAILY valacyclovir (Valtrex) 2,000 mg (2 x 1 gram) PO BID Tobacco use date assessed: 02/02/23 Dental Screening Dental Screen Date: 08/10/23 Did you have a dental visit in the last 12 months?: Yes Did you have a dental problem in the last 6 months where you did not have access to dental care?: No Was dental information given to patient?: Patient has dentist HPI Follow up HPI Details Pt presents for f/u. Patient complains of chronic cough worse after laying down. Patient restart using Advair occasionally with some relief. 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 Patient reports dyspnea on exertion when walking up the stairs but no PND orthopnea chest pain sputum production. Chronic GERD is stable on PPI. Patient has been following low-cholesterol diet for hyperlipidemia. She reports increased hair lost and like to have thyroid and vitamin level checked. [facility] Medical History Shoulder pain, right Normal pelvic exam Normal breast exam GERD (gastroesophageal reflux disease) Annual physical exam Cough Abdominal pain Surgical History Hx of colonoscopy Family History Father No problems noted. Mother No problems noted. 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 How often do you have a drink containing alcohol?: Never 3. How often do you have six or more drinks on one occasion?: Never Total Score: 0 DANDY-7 AMB Questionnaire DANDY-7 Date DANDY - 7 assessed: 11/23/22 Source: Developed by Drs. Alvarez Alvarez, Zoraida Rodgers, Daniel Hollingsworth and colleagues, with an educational cielo from [employer]. Review of Systems Const All systems reviewed & are unremarkable except as noted in HPI and below Reports no additional complaints Eyes Reports no additional complaints ENT Reports no additional complaints Card Reports no additional complaints Resp Reports no additional complaints GI Reports no additional complaints Physical exam (Primary Care) Vital Signs: Last Vital Signs Pulse 83 08/10/23 09:49 BP 130/76 08/10/23 09:49 Pulse Ox 96 08/10/23 09:49 Oxygen Delivery Method Room Air 08/10/23 09:49 BMI result Body Mass Index 32.0 Tobacco/Smoking Status: Tobacco use Status Tobacco use date assessed 02/02/23 08/10/23 09:58 Patient Tobacco Use Status Former Tobacco user 08/10/23 09:58 e-Cigarette/Vaping Use Never Used 08/10/23 09:58 Thrive Assessment: Date of Thrive Assessment Date Thrive assessed 11/23/22 08/10/23 09:58 Const General: no acute distress HENMT Head: Yes normal to inspection Ears: hearing grossly normal bilaterally Throat: Yes posterior oropharynx normal Neck Neck: Yes no lymphadenopathy and Yes supple Resp Effort & Inspection: normal respiratory effort Auscultation: wheezes and diminished lung sounds Cardio Rhythm: regular rhythm Heart sounds: S1 normal heart sound present and S2 normal heart sound present GI Inspection: Yes normal to inspection Palpation (GI): Soft to palpation Assessment and Plan Assessment & Plan (1) Vitamin D deficiency: Code(s): E55.9 - Vitamin D deficiency, unspecified Plan: Check vitamin-D level (2) Hyperlipidemia: Comment: Intolerant to pravastatin, myalgia Code(s): E78.5 - Hyperlipidemia, unspecified Plan: Continue low-cholesterol diet and check lipid profile (3) Asthma: Comment: Negative chest x-ray 03/12 Code(s): J45.909 - Unspecified asthma, uncomplicated Plan: Patient was advised to use Advair daily and PFTs will be scheduled. Orders: Orders TSH reflex Free T4 Today E55.9 - Vitamin D deficiency, unspecified, E78.5 - Hyperlipidemia, unspecified Lipid Panel Today E55.9 - Vitamin D deficiency, unspecified, E78.5 - Hyperlipidemia, unspecified Complete Blood Count Auto Diff Today E55.9 - Vitamin D deficiency, unspecified, E78.5 - Hyperlipidemia, unspecified IRON PROFILE Today E55.9 - Vitamin D deficiency, unspecified, E78.5 - Hyperlipidemia, unspecified Vitamin B12 and Folate Today E55.9 - Vitamin D deficiency, unspecified, E78.5 - Hyperlipidemia, unspecified Comprehensive [place]. Panel Fast Today E55.9 - Vitamin D deficiency, unspecified, E78.5 - Hyperlipidemia, unspecified Vitamin D 25-OH Total Today E55.9 - Vitamin D deficiency, unspecified, E78.5 - Hyperlipidemia, unspecified PFT pulmonary function test Today J45.909 - Unspecified asthma, uncomplicated Coding Level of Care Code Est Pt Level 4 (86634) Diagnoses Vitamin D deficiency E55.9 Hyperlipidemia E78.5 Asthma J45.909
[2023-08-10 09:49] VITALS: BP 130/76; PULSE 83; O2SAT 96; BMI 32.0
== END 2023-08-10 10:34 | disposition home or self-care (01) ==
PROVIDERS: PCP Internal Medicine; Visit Provider Internal Medicine
DX: E55.9 Vitamin D deficiency, unspecified (principal); E78.5 Hyperlipidemia, unspecified; J45.909 Unspecified asthma, uncomplicated
CPT/HCPCS: 99214

== ENCOUNTER 2023-08-18 09:34 | Outpatient (REF) | payer BC, SELFPAY ==
[2023-08-18 11:09] LABS: MANUAL DIFF FLAG NO
[2023-08-18 11:20] LABS: Basophils Absolute Auto 0.1 X10*3/uL (0.0-0.2); Basophils Percent Auto 0.8 % (0-2); Eosinophils Absolute Auto 0.5 X10*3/uL (0.0-0.4); Eosinophils Percent Auto 6.3 % (0-4); Hematocrit 42.9 % (37.0-47.0); Hemoglobin 13.9 g/dl (12.0-16.0); Imm Gran Abs Auto 0.02 X10*3/uL (0.00-0.03); Imm Gran Pct Auto 0.3 % (0.0-0.4); Lymphocytes Absolute Auto 2.7 X10*3/uL (1.2-4.9); Mean Corpuscular HGB Conc 32.4 g/dl (31.0-35.0); Mean Corpuscular Hemoglobin 29.8 pg (27.0-33.0); Mean Corpuscular Volume 91.9 fL (80.0-98.0); Mean Platelet Volume 10.6 fL (9.4-12.3); Monocytes Absolute Auto 0.8 X10*3/uL (0.1-1.2); Monocytes Percent Auto 11.1 % (2-11); Neutrophils Absolute Auto 3.5 x10*3/uL (2.0-8.3); Neutrophils Percent Auto 46.5 % (45-73); Platelet Count 264 X10*3/uL (160-400); Red Blood Count 4.67 X10*6/uL (4.20-5.50); Red Cell Distribution Width 13.1 % (11.0-16.0); White Blood Count 7.6 X10*3/uL (4.8-10.8)
[2023-08-18 12:00] LABS: Alanine Aminotransferase 16 U/L (0-31); Albumin Level 4.2 g/dL (3.5-5.0); Alkaline Phosphatase 72 U/L (39-117); Anion Gap 16 (12-20); Aspartate Amino Transferase 21 U/L (5-31); Bilirubin Total 0.5 mg/dL (0.0-1.0); Blood Urea Nitrogen 13 mg/dL (9-16); Calcium 9.4 mg/dL (8.4-10.2); Carbon Dioxide 24 mmol/L (22-29); Chloride 108 mmol/L (96-108); Cholesterol 240 mg/dL (<200); Estimated Glomerular Filt Rate > 60; Glucose Fasting 85 mg/dL (60-99); HDL Cholesterol 52 mg/dL (>40); Iron 88 mcg/dL (30-160); LDL Cholesterol Calculated 162 mg/dL (<100); Percent Iron Saturation 35 % (15-50); Potassium 3.8 mmol/L (3.3-5.1); Sodium 144 mmol/L (135-145); Total Iron Binding Capacity 248 mcg/dL (228-428); Total Protein 7.1 g/dL (6.5-8.0); Triglycerides 130 mg/dL (<150); Unsaturated Iron Binding 160 ug/dL
[2023-08-18 12:16] LABS: TSH reflex Free T4 2.17 uIU/mL (0.32-4.0); Vitamin D 25-OH Total 22.6 ng/mL (>30)
[2023-08-18 12:22] LABS: Vitamin B12 432 pg/mL (200-900)
== END 2023-08-18 09:35 | disposition home or self-care (01) ==
LOC: HO.HMGCLDS 09:34
PROVIDERS: PCP Internal Medicine; Visit Provider Internal Medicine
DX: E55.9 Vitamin D deficiency, unspecified (principal); E78.5 Hyperlipidemia, unspecified
CPT/HCPCS: 36415; 80053; 80061; 82306; 82607; 82746; 83540; 84443; 85025

== ENCOUNTER 2023-09-22 11:25 | Outpatient (AMB) | payer BC, SELFPAY ==
[2023-09-22 11:28] VITALS: BP 124/76; PULSE 81; O2SAT 98; BMI 32.0
--- NOTE | 2023-09-22 11:28 | A.OFFPC_ITS ---
Vital Signs 09/22/23 11:28 Height 5 ft Weight 164 lb BMI 32.0 BP 124/76 Blood Pressure Location Lt brachial Position Sitting Pulse 81 Pulse Source Pulse Oximeter Pulse Oximetry (%) 98 Oxygen Delivery Method Room Air Intake Visit Reasons: Sore throat Intake Note: Pt is here today for a sick visit. P c/o sore throat, chest congestion since last night. Allergies pravastatin Adverse Reaction (Intermediate, Verified 09/22/23 11:32) myalgia Medication List - Last Reconciled 09/22/23 by Ursula Squires MD Advair Diskus 100-50 mcg/dose (fluticasone propion-salmeterol) 1 inh inhalation BID NS albuterol sulfate 90 mcg/actuation (ProAir HFA) 2 puffs inhalation Q6H PRN meclizine 25 mg PO BID PRN omeprazole 20 mg PO DAILY prednisone FOUR TABLET P.O. Q.D. FOR 3 DAYS, THEN 3 TABLETS P.O. Q.D. FOR 3 DAYS THEN 2 TABLETS P.O. Q.D. FOR 3 DAYS THEN 1 TABLET P.O. Q.D. FOR 3 DAYS rosuvastatin (Crestor) 5 mg PO DAILY valacyclovir (Valtrex) 2,000 mg (2 x 1 gram) PO BID Tobacco use date assessed: 09/22/23 HPI Sore throat HPI Details Patient complains of 1 day of sore throat nasal congestion productive cough increased shortness of breath and wheezing. She denies fever chills pleurisy PFSH Medical History Shoulder pain, right Normal pelvic exam Normal breast exam GERD (gastroesophageal reflux disease) Annual physical exam Cough Abdominal pain Surgical History Hx of colonoscopy Family History Father No problems noted. Mother No problems noted. 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 Alvarez Alvarez, Zoraida Rodgers, Daniel Hollingsworth and colleagues, with an educational cielo from [employer]. Review of Systems Const All systems reviewed & are unremarkable except as noted in HPI and below Reports no additional complaints Eyes Reports no additional complaints ENT Reports no additional complaints Card Reports no additional complaints Resp Reports no additional complaints GI Reports no additional complaints Reports no additional complaints Physical exam (Primary Care) Vital Signs: Last Vital Signs Pulse 81 09/22/23 11:28 BP 124/76 09/22/23 11:28 Pulse Ox 98 09/22/23 11:28 Oxygen Delivery Method Room Air 09/22/23 11:28 BMI result Body Mass Index 32.0 Tobacco/Smoking Status: Tobacco use Status Tobacco use date assessed 09/22/23 09/22/23 11:37 Patient Tobacco Use Status Former Tobacco user 09/22/23 11:37 e-Cigarette/Vaping Use Never Used 09/22/23 11:37 Thrive Assessment: Date of Thrive Assessment Date Thrive assessed 11/23/22 09/22/23 11:37 Const General: no acute distress HENMT Head: Yes normal to inspection Throat: Yes posterior oropharynx abnormal (erythema) and Yes postnasal drainage Neck Neck: Yes no lymphadenopathy and Yes supple Resp Effort & Inspection: normal respiratory effort Auscultation: rhonchi, wheezes and diminished lung sounds Cardio Rhythm: regular rhythm Heart sounds: S1 normal heart sound present and S2 normal heart sound present GI Inspection: Yes normal to inspection Palpation (GI): Soft to palpation Assessment and Plan Assessment & Plan (1) Asthma: Comment: Negative chest x-ray 03/12 Code(s): J45.909 - Unspecified asthma, uncomplicated Plan: For asthma exacerbation prednisone taper and Z-Colin are prescribed and supportive care discussed with the patient (2) Hyperlipidemia: Comment: Intolerant to pravastatin, myalgia Code(s): E78.5 - Hyperlipidemia, unspecified Plan: Start 5 mg of Crestor Orders: Orders SARS-CoV2/FLU/RSV Today J06.9 - Acute upper respiratory infection, unspecified Medications: New prednisone FOUR TABLET P.O. Q.D. FOR 3 DAYS, THEN 3 TABLETS P.O. Q.D. FOR 3 DAYS THEN 2 TABLETS P.O. Q.D. FOR 3 DAYS THEN 1 TABLET P.O. Q.D. FOR 3 DAYS 30 tabs 0RF rosuvastatin (Crestor) 5 mg PO DAILY 90 tabs 1RF azithromycin start on day 2 of therapy 250 mg PO DAILY 6 tabs 0RF 6 days Coding Level of Care Code Est Pt Level 3 (21904) Diagnoses Asthma J45.909 Hyperlipidemia E78.5
== END 2023-09-22 12:16 | disposition home or self-care (01) ==
PROVIDERS: PCP Internal Medicine; Visit Provider Internal Medicine
DX: J45.909 Unspecified asthma, uncomplicated (principal); E78.5 Hyperlipidemia, unspecified
CPT/HCPCS: 99213

== ENCOUNTER 2023-09-22 12:14 | Outpatient (REF) | payer BC, SELFPAY ==
[2023-09-22 14:55] LABS: Influenza A PCR NEGATIVE (Negative); Influenza B PCR NEGATIVE (Negative); Resp Syncy Virus RNA Qual PCR NEGATIVE (Negative); SARS COV2 PCR INHOUSE NEGATIVE (Negative)
== END 2023-09-22 12:15 | disposition home or self-care (01) ==
LOC: HO.LAB 12:14
PROVIDERS: Visit Provider Internal Medicine
DX: Z11.52 Encounter for screening for COVID-19 (principal); J06.9 Acute upper respiratory infection, unspecified
CPT/HCPCS: 0241U

== ENCOUNTER 2023-10-19 09:27 | Outpatient (AMB) | payer BC, SELFPAY ==
--- NOTE | 2023-10-19 09:30 | A.OFFPC_ITS ---
Vital Signs 10/19/23 09:32 Height 5 ft Weight 164 lb BMI 32.0 BP 112/78 Blood Pressure Location Lt brachial Position Sitting Pulse 72 Pulse Source Pulse Oximeter Pulse Oximetry (%) 97 Oxygen Delivery Method Room Air Intake Visit Reasons: Pre op Dr. Meeks Intake Note: Pt is here today for pre op visit. Pt is having surgery with Dr. Meeks on 10/25/23. Allergies pravastatin Adverse Reaction (Intermediate, Verified 10/19/23 09:38) myalgia Medication List - Last Reconciled 10/19/23 by Ursula Squires MD Advair Diskus 100-50 mcg/dose (fluticasone propion-salmeterol) 1 inh inhalation BID NS albuterol sulfate 90 mcg/actuation (ProAir HFA) 2 puffs inhalation Q6H PRN meclizine 25 mg PO BID PRN omeprazole 20 mg PO DAILY rosuvastatin (Crestor) 5 mg PO DAILY valacyclovir (Valtrex) 2,000 mg (2 x 1 gram) PO BID Tobacco use date assessed: 09/22/[address] Meeks HPI Details Patient presents for preop for bilateral blepharoplasty. Asthma is stable on Advair once a day and patient uses albuterol p.r.n. once or twice a week only. She has been tolerating Crestor for hyperlipidemia. [facility] Medical History Shoulder pain, right Normal pelvic exam Normal breast exam GERD (gastroesophageal reflux disease) Annual physical exam Cough Abdominal pain Surgical History Hx of colonoscopy Family History Father No problems noted. Mother No problems noted. 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 Alvarez Alvarez, Zoraida Rodgers, Daniel Hollingsworth and colleagues, with an educational cielo from [employer]. Review of Systems Const All systems reviewed & are unremarkable except as noted in HPI and below Reports no additional complaints Eyes Reports no additional complaints ENT Reports no additional complaints Card Reports no additional complaints Resp Reports no additional complaints GI Reports no additional complaints Reports no additional complaints Physical exam (Primary Care) Vital Signs: Last Vital Signs Pulse 72 10/19/23 09:32 BP 112/78 10/19/23 09:32 Pulse Ox 97 10/19/23 09:32 Oxygen Delivery Method Room Air 10/19/23 09:32 BMI result Body Mass Index 32.0 Tobacco/Smoking Status: Tobacco use Status Tobacco use date assessed 09/22/23 10/19/23 09:30 Patient Tobacco Use Status Former Tobacco user 10/19/23 09:30 e-Cigarette/Vaping Use Never Used 10/19/23 09:30 Thrive Assessment: Date of Thrive Assessment Date Thrive assessed 11/23/22 10/19/23 09:30 Const General: no acute distress HENMT Throat: Yes posterior oropharynx normal Neck Neck: Yes no lymphadenopathy and Yes supple Resp Effort & Inspection: normal respiratory effort Auscultation: clear to auscultation bilaterally Cardio Rhythm: regular rhythm Heart sounds: S1 normal heart sound present and S2 normal heart sound present Assessment and Plan Assessment & Plan (1) Hyperlipidemia: Comment: Intolerant to pravastatin, myalgia Code(s): E78.5 - Hyperlipidemia, unspecified Plan: Continue Crestor (2) Ptosis of both upper eyelids: Code(s): H02.403 - Unspecified ptosis of bilateral eyelids Plan: Patient is medically cleared for bilateral blepharoplasty surgery (3) Asthma: Comment: Negative chest x-ray 03/12 Code(s): J45.909 - Unspecified asthma, uncomplicated Plan: Continue Advair and albuterol as needed. Patient will schedule PFTs Orders: Orders Comprehensive [place]. Panel Fast 3 Months E78.5 - Hyperlipidemia, unspecified, J45.909 - Unspecified asthma, uncomplicated Lipid Panel 3 Months E78.5 - Hyperlipidemia, unspecified, J45.909 - Unspecified asthma, uncomplicated Coding Level of Care Code Est Pt Level 4 (64281) Diagnoses Hyperlipidemia E78.5 Ptosis of both upper eyelids H02.403 Asthma J45.909
[2023-10-19 09:32] VITALS: BP 112/78; PULSE 72; O2SAT 97; BMI 32.0
== END 2023-10-19 10:13 | disposition home or self-care (01) ==
PROVIDERS: PCP Internal Medicine; Visit Provider Internal Medicine
DX: E78.5 Hyperlipidemia, unspecified (principal); H02.403 Unspecified ptosis of bilateral eyelids; J45.909 Unspecified asthma, uncomplicated
CPT/HCPCS: 99214

== ENCOUNTER 2024-01-01 09:25 | Outpatient (REF) | payer BC, SELFPAY ==
[2024-01-01 12:29] LABS: Alanine Aminotransferase 23 U/L (0-31); Albumin Level 4.2 g/dL (3.5-5.0); Alkaline Phosphatase 68 U/L (39-117); Anion Gap 13 (12-20); Aspartate Amino Transferase 22 U/L (5-31); Bilirubin Total 0.6 mg/dL (0.0-1.0); Blood Urea Nitrogen 15 mg/dL (9-16); Calcium 8.9 mg/dL (8.4-10.2); Carbon Dioxide 25 mmol/L (22-29); Chloride 109 mmol/L (96-108); Cholesterol 192 mg/dL (<200); Estimated Glomerular Filt Rate > 60; Glucose Fasting 99 mg/dL (60-99); HDL Cholesterol 53 mg/dL (>40); LDL Cholesterol Calculated 111 mg/dL (<100); Potassium 4.1 mmol/L (3.3-5.1); Sodium 143 mmol/L (135-145); Total Protein 7.2 g/dL (6.5-8.0); Triglycerides 144 mg/dL (<150)
== END 2024-01-01 09:26 | disposition home or self-care (01) ==
LOC: HO.HMGCLDS 09:25
PROVIDERS: PCP Internal Medicine; Visit Provider Internal Medicine
DX: E78.5 Hyperlipidemia, unspecified (principal); J45.909 Unspecified asthma, uncomplicated
CPT/HCPCS: 36415; 80053; 80061

== ENCOUNTER 2024-01-03 08:24 | Outpatient (AMB) | payer BC, SELFPAY ==
[2024-01-03 08:28] VITALS: BP 118/76; PULSE 83; O2SAT 96; BMI 32.4
--- NOTE | 2024-01-03 08:28 | MHC.PC.OV ---
Vital Signs 01/03/24 08:28 Height 5 ft Weight 166 lb BMI 32.4 BP 118/76 Blood Pressure Location Lt brachial Position Sitting Pulse 83 Pulse Source Pulse Oximeter Pulse Oximetry (%) 96 Oxygen Delivery Method Room Air Intake Visit Reasons: Annual PE Intake Note: Pt is here today for PE. Allergies pravastatin Adverse Reaction (Intermediate, Verified 01/03/24 08:30) myalgia Medication List - Last Reconciled 01/03/24 by Ursula Squires MD Advair Diskus 100-50 mcg/dose (fluticasone propion-salmeterol) 1 inh inhalation BID NS albuterol sulfate 90 mcg/actuation (ProAir HFA) 2 puffs inhalation Q6H PRN cholecalciferol (vitamin D3) 50 mcg PO DAILY meclizine 25 mg PO BID PRN omeprazole 20 mg PO DAILY rosuvastatin (Crestor) 5 mg PO DAILY valacyclovir (Valtrex) 2,000 mg (2 x 1 gram) PO BID Tobacco use date assessed: 01/03/24 Fall risk assessment: No Falls in past year Last assessed Fall Risk: 01/03/24 Dental Screening Dental Screen Date: 01/03/24 Did you have a dental visit in the last 12 months?: Yes Did you have a dental problem in the last 6 months where you did not have access to dental care?: No Was dental information given to patient?: Patient has dentist HPI Annual PE HPI Details Patient presents for physical. She complains of 1 day of sore throat postnasal drip productive cough body aches but denies fever pleurisy PND orthopnea. Patient has been using Advair twice a day but has not had pulmonary function test yet. She reports intermittent wheezing and has been using albuterol as needed with good relief. Patient complains of mid back pain when sitting longer than 8 hours at work and would like to have work restrictions to not exceed 8 hours a day work day. [facility] Medical History Shoulder pain, right Normal pelvic exam Normal breast exam GERD (gastroesophageal reflux disease) Annual physical exam Cough Abdominal pain Surgical History Hx of colonoscopy Family History Father No problems noted. Mother No problems noted. 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 1. Little interest or pleasure in doing things: not at all 2. Feeling down, depressed, or hopeless: not at all 3. Trouble falling or staying asleep, or sleeping too much: not at all 4. Feeling tired or having little energy: not at all 5. Poor appetite or overeating: not at all 6. Feeling bad about yourself - or that you are a failure or have let yourself or your family down: not at all 7. Trouble concentrating on things, such as reading the newspaper or watching television: not at all 8. Moving or speaking so slowly that other people could have noticed. Or the opposite - being so fidgety or restless that you have been moving around a lot more than usual: not at all 9. Thoughts that you would be better off or of hurting yourself in some way: not at all Total score: 0 Depression Screening Interpretation: Negative Depression Screening Done: Yes Source: Developed by Drs. Alvarez Alvarez, Zoraida Rodgers, Daniel Hollingsworth and colleagues, with an educational cielo from [employer]. Thrive Questionnaire Date Thrive assessed: 01/03/24 I am a: Patient What is your living situation today?: I have a steady place to live Within the past 12 months, did the food you bought not last and you didn't have the money to get more?: Never true Within the past 12 months, did you worry whether your food would run out before you got money to buy more?: Never true Do you have trouble paying for medicines?: No Do you have trouble getting transportation to medical appointments?: No Do you have trouble paying your heating and electricity bill?: No Do you have trouble taking care of your child, family member or friend?: No Do you have trouble with day-to-day activities such as bathing, preparing meals, shopping, managing finances, etc.?: No Are you currently unemployed and looking for a job?: No Are you interested in more education?: No Please select the resources that you would like help with: None Currently or been in a relationship where the following occur: no concerns reported THRIVE Score: 0 AUDIT C Alcohol Use Questionnaire (AUDIT-C) 1. How often do you have a drink containing alcohol?: Never 3. How often do you have six or more drinks on one occasion?: Never Total Score: 0 DANDY-7 AMB Questionnaire DANDY-7 Date DANDY - 7 assessed: 01/03/24 Feeling nervous, anxious, or on edge: 0 = Not at all Not being able to stop or control worryin = Not at all Worrying too much about different things: 0 = Not at all Trouble relaxin = Not at all Being so restless that it is hard to sit still: 0 = Not at all Becoming easily annoyed or irritable: 0 = Not at all Feeling afraid as if something awful might happen: 0 = Not at all Total DANDY-7 score (0-4 normal; 5-9 mild; 10-14 moderate; 15-21 severe): 0 Source: Developed by Drs. Alvarez Alvarez, Zoraida Rodgers, Daniel Hollingsworth and colleagues, with an educational cielo from [employer]. Review of Systems Const All systems reviewed & are unremarkable except as noted in HPI and below Reports no additional complaints Eyes Reports no additional complaints ENT Reports no additional complaints Card Reports no additional complaints Resp Reports no additional complaints GI Reports no additional complaints Reports no additional complaints Musc Reports no additional complaints Physical exam (Primary Care) Vital Signs: Last Vital Signs Pulse 83 01/03/24 08:28 BP 118/76 01/03/24 08:28 Pulse Ox 96 01/03/24 08:28 Oxygen Delivery Method Room Air 01/03/24 08:28 BMI result Body Mass Index 32.4 Tobacco/Smoking Status: Tobacco use Status Tobacco use date assessed 01/03/24 01/03/24 08:39 Patient Tobacco Use Status Former Tobacco user 01/03/24 08:39 e-Cigarette/Vaping Use Never Used 02/14/24 08:39 PHQ-9: PHQ-9 Score PHQ-9: Total score 0 01/03/24 08:39 Depression Screening Interpretation: Negative Thrive Assessment: Date of Thrive Assessment Date Thrive assessed 01/03/24 01/03/24 08:39 Currently or been in a relationship where the following occur: no concerns reported Const General: no acute distress HENMT Head: Yes normal to inspection Ears: hearing grossly normal bilaterally Face and sinus: No sinus tenderness Throat: Yes posterior oropharynx abnormal (erythema) and Yes postnasal drainage Eyes General: appearance normal, both eyes and all related structures Neck Neck: Yes no lymphadenopathy and Yes supple Resp Effort & Inspection: normal respiratory effort Auscultation: clear to auscultation bilaterally Cardio Rhythm: regular rhythm Heart sounds: S1 normal heart sound present and S2 normal heart sound present GI Inspection: Yes normal to inspection Palpation (GI): Soft to palpation Percussion: Yes normal to percussion Auscultation: normal bowel sounds Assessment and Plan Assessment & Plan (1) Mid-back pain, acute: Code(s): M54.9 - Dorsalgia, unspecified Plan: For chronic mid back pain x-ray of thoracic spine will be obtained. Regular stretching exercises including yoga discussed with the patient. PT was recommended but patient declined [employer] work restriction for 1 year not to exceed 8 hours work day because of chronic mid back pain when sitting bent forward for long time (2) Postmenopausal: Code(s): Z78.0 - Asymptomatic menopausal state Plan: Check DEXA, start 2000 units of vitamin-D 3 supplement (3) Annual physical exam: Code(s): Z00.00 - Encounter for general adult medical examination without abnormal findings Plan: Well-balanced diet regular physical activity discussed with the patient she is up-to-date with mammogram by [facility] and had negative colonoscopy last year (4) Endometrial adenocarcinoma: Comment: stage 1A , 08/11 s/p MADDISON/BSO f/u with [facility] Oncology Code(s): C54.1 - Malignant neoplasm of endometrium Plan: Follow-up with [facility] Oncology (5) Hyperlipidemia: Comment: Intolerant to pravastatin, myalgia Code(s): E78.5 - Hyperlipidemia, unspecified Plan: Continue Crestor (6) Cough: Code(s): R05 - Cough Plan: For chronic cough and dyspnea on exertion patient will reschedule PFTs and echocardiogram will be obtained. She was advised to continue Advair until PFT results are available Orders: Orders XR thoracic spine 2V Today M54.9 - Dorsalgia, unspecified CA echo transthoracic complete Today Z78.0 - Asymptomatic menopausal state Comprehensive [place]. Panel Fast 6 Months C54.1 - Malignant neoplasm of endometrium, E78.5 - Hyperlipidemia, unspecified, Z00.00 - Encounter for general adult medical examination without abnormal findings Complete Blood Count Auto Diff 6 Months C54.1 - Malignant neoplasm of endometrium, E78.5 - Hyperlipidemia, unspecified, Z00.00 - Encounter for general adult medical examination without abnormal findings Lipid Panel 6 Months C54.1 - Malignant neoplasm of endometrium, E78.5 - Hyperlipidemia, unspecified, Z00.00 - Encounter for general adult medical examination without abnormal findings XR DEXA axial skeleton Today Z78.0 - Asymptomatic menopausal state Vitamin D 25-OH Total 6 Months C54.1 - Malignant neoplasm of endometrium, E78.5 - Hyperlipidemia, unspecified, Z00.00 - Encounter for general adult medical examination without abnormal findings TSH reflex Free T4 6 Months C54.1 - Malignant neoplasm of endometrium, E78.5 - Hyperlipidemia, unspecified, Z00.00 - Encounter for general adult medical examination without abnormal findings UA w Microscopic 6 Months C54.1 - Malignant neoplasm of endometrium, E78.5 - Hyperlipidemia, unspecified, Z00.00 - Encounter for general adult medical examination without abnormal findings Medications: New benzonatate 100 mg PO BID-TID PRN 30 caps 0RF cough cholecalciferol (vitamin D3) 50 mcg PO DAILY 90 tabs 3RF Refilled meclizine 25 mg PO BID PRN 60 tabs 0RF dizziness Coding Level of Care Code Est Pt Prev Care 40-64y(39942) Diagnoses Mid-back pain, acute M54.9 Postmenopausal Z78.0 Annual physical exam Z00.00 Endometrial adenocarcinoma C54.1 Hyperlipidemia E78.5 Cough R05
== END 2024-01-03 09:40 | disposition home or self-care (01) ==
PROVIDERS: PCP Internal Medicine; Visit Provider Internal Medicine
DX: M54.9 Dorsalgia, unspecified (principal); Z78.0 Asymptomatic menopausal state; Z00.00 Encounter for general adult medical examination without abnormal findings; C54.1 Malignant neoplasm of endometrium; E78.5 Hyperlipidemia, unspecified; R05.9 Cough, unspecified
CPT/HCPCS: 99396

== ENCOUNTER → 2024-03-15 09:36 | Outpatient (REF) | payer BC, SELFPAY ==
--- NOTE | 2024-03-15 09:38 | CA_ITS ---
Transthoracic Echocardiogram Patient (Last, First, Middle): Tahmina Lo Irena Gender: Female Date of : 1960 Age: 63 Procedure Date: 03/15/2024 Procedure Type: Transthoracic Echocardiogram Location: OP Height: 154. cm Weight: 72.58 kg BSA: 1.71 m2 Heart Rate: 54 bpm BP: 155 / 90 mmHg Chair Frame Builder: SERGIO Negron MD: Ursula Squires MD Building Coordinator: Gilbert Montgomery MD Symptoms: Z78.0 - Asymptomatic menopausal state Study Quality: Fair w/Contrast ECG Rhythm: Bradycardia Conclusions: - Essentially normal study Findings Procedure Information Contrast agent, definity, is being given per protocol without apparent complications. Left Ventricle Normal left ventricular size, thickness, and systolic function. The visually estimated ejection fraction is between 65-70%. Spectral Doppler is indicative of an impaired relaxation filling pattern. E/E prime ratio is <8, consistent with normal filling pressures. Evidence suggests grade I (mild) diastolic dysfunction. Right Ventricle Normal right ventricular cavity size and systolic function. Atria The left atrium is normal in size. There is no evidence of interatrial shunt. Aortic Valve Normal aortic valve structure and function. There is no aortic valve stenosis. There is no aortic valve regurgitation. Mitral Valve Likely normal mitral valve structure and function. There is trace mitral valve regurgitation. There is no mitral valve stenosis. Pulmonic Valve The pulmonic valve was not well visualized. Tricuspid Valve Likely normal tricuspid valve structure and function. There is trace tricuspid valve regurgitation. The right ventricular systolic pressure is normal. The right ventricular systolic pressure is 14 mmHg. Normal right atrial pressure. Great Vessels The pulmonary artery was not well visualized. Venous The inferior vena cava is normal in size and collapses greater than 50% with inspiration. Pericardium/Pleural There is no evidence of pericardial effusion. Prior Study Comparison No prior study available for comparison. Measurements 2D Linear Measurements IVSd: 0.94 0.6-0.9/0.6-1.0 cm LVIDd: 4.28 3.9-5.3/4.2-5.9 cm LVIDd Index: 2.50 2.4-3.2/2.2-3.1 cm/m2 LVIDs: 2.57 2.0-3.6 cm LVPWd: 0.99 0.7-1.1 cm LA Diam: 3.30 2.7-3.8/3.0-4.0 cm LAIDs Index: 1.93 1.5-2.3 cm/m2 LV Mass: 167.52 67-162/88-224 g LV Mass Index: 97.97 43-95/49-115 g/m2 LVOT Diam: 1.90 3.0+(-)1.3 cm 2D Systolic Function EF 4C: 60.60 >55% EF 2C: 72.30 >55% EF BiP: 67.30 >55% Mitral Valve MV Pk E: 0.87 MV PK A: 0.95 MV Decel Time: 251.00 E/A: 0.90 E'Lateral: 8.81 E'Medial: 6.85 E/E' Med: 12.70 E/E' Lat: 9.90 PHT: 74.00 MVA PHT: 2.97 Decel Dent: 3.45 Aortic Valve AoV Pk Seferino: 1.31 AoV Mn Seferino: 0.93 AoV VTI: 0.33 AoV Pk Grad: 7.00 Aov Mn Grad: 4.00 ARMEN Cont.VTI: 2.21 LVOT LVOT Pk Seferino: 1.16 LVOT Mn Seferino: 0.74 LVOT VTI: 0.25 LVOT Pk Grad: 5.00 LVOT Mn Grad: 3.00 LVOT Diam: 1.90 LVOT Area: 2.84 Diastolic Function MV Pk E: 0.87 MV Pk A: 0.95 E/A: 0.90 E'Medial: 6.85 E/E' Med: 12.70 E' Laterial: 8.81 E/E' Lat: 9.90 Right Ventricle TAPSE (mm): 20.70 TVS' Seferino: 11.30 Tricuspid Valve TR Pk Seferino: 1.64 TR Pk Grad: 11.00 RA Press: 3.00 RVSP: 14.00 Great Vessels Aorta Sinus of Valsalva: 3.10 2.0-3.5 cm Ao Asc: 3.30 2.1-3.4 cm Pulmonary Valve PV Pk Seferino: 1.06 Peak PV Grad: 4.00 Updated in Other Vendor System with Status of Final Gilbert Montgomery MD electronically signed on 03/16/2024 6:49:42 AM with status of Final
== END ==
LOC: HO.CARD 09:36
PROVIDERS: Visit Provider Internal Medicine
DX: R06.09 Other forms of dyspnea (principal)
CPT/HCPCS: 93306; Q9957

== ENCOUNTER → 2024-03-15 09:38 | Outpatient (BNV) | payer BC, SELFPAY | PROVIDERS: Visit Provider Internal Medicine Cardiovascular Disease | DX: R00.1 Bradycardia, unspecified (principal) | CPT/HCPCS: 93306 ==

== ENCOUNTER 2024-06-24 09:47 | Outpatient (AMB) | payer BC, SELFPAY ==
[2024-06-24 09:53] VITALS: BP 120/75; PULSE 84; O2SAT 96; BMI 32.1
--- NOTE | 2024-06-24 09:53 | A.OFFPC_ITS ---
Vital Signs 06/24/24 09:53 Height 5 ft Weight 164 lb 4 oz BMI 32.1 BP 120/75 Blood Pressure Location Rt brachial Position Sitting Pulse 84 Pulse Source Pulse Oximeter Pulse Oximetry (%) 96 Oxygen Delivery Method Room Air Intake Visit Reasons: Follow up visit Intake Note: Patient is here today for regular follow up visit. Allergies pravastatin Adverse Reaction (Intermediate, Verified 06/24/24 09:53) myalgia Medication List - Last Reconciled 06/24/24 by Ursula Squires MD Advair Diskus 100-50 mcg/dose (fluticasone propion-salmeterol) 1 inh inhalation BID NS albuterol sulfate 90 mcg/actuation (ProAir HFA) 2 puffs inhalation Q6H PRN cholecalciferol (vitamin D3) 50 mcg PO DAILY meclizine 25 mg PO BID PRN omeprazole 20 mg PO DAILY rosuvastatin (Crestor) 5 mg PO DAILY valacyclovir (Valtrex) 2,000 mg (2 x 1 gram) PO BID Tobacco use date assessed: 06/24/24 Fall risk assessment: No Falls in past year Last assessed Fall Risk: 06/24/24 Dental Screening Dental Screen Date: 06/24/24 Did you have a dental visit in the last 12 months?: Yes Did you have a dental problem in the last 6 months where you did not have access to dental care?: No Was dental information given to patient?: Patient has dentist HPI Follow up visit HPI Details Pt presents for f/u hyperlipid, stable on Crestor. Chronic asthma is controlled on Advair PFSH Medical History Shoulder pain, right Normal pelvic exam Normal breast exam GERD (gastroesophageal reflux disease) Annual physical exam Cough Abdominal pain Surgical History Hx of colonoscopy Family History Father No problems noted. Mother No problems noted. 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 How often do you have a drink containing alcohol?: Never 3. How often do you have six or more drinks on one occasion?: Never Total Score: 0 Score Reviewed/Action Taken: Yes DANDY-7 AMB Questionnaire DANDY-7 Date DANDY - 7 assessed: 01/03/24 Source: Developed by Drs. Alvarez Alvarez, Zoraida Rodgers, Daniel Hollingsworth and colleagues, with an educational cielo from [employer]. Review of Systems Const All systems reviewed & are unremarkable except as noted in HPI and below Reports no additional complaints Eyes Reports no additional complaints ENT Reports no additional complaints Card Reports no additional complaints Resp Reports no additional complaints GI Reports no additional complaints Reports no additional complaints Physical exam (Primary Care) Vital Signs: Last Vital Signs Pulse 84 06/24/24 09:53 Pulse Ox 96 06/24/24 09:53 Oxygen Delivery Method Room Air 06/24/24 09:53 BMI result Body Mass Index 32.1 Tobacco/Smoking Status: Tobacco use Status Tobacco use date assessed 06/24/24 06/24/24 09:55 Patient Tobacco Use Status Former Tobacco user 06/24/24 09:55 e-Cigarette/Vaping Use Never Used 06/24/24 09:55 Thrive Assessment: Date of Thrive Assessment Date Thrive assessed 01/03/24 06/24/24 09:55 Const General: no acute distress HENMT Head: Yes normal to inspection Eyes General: appearance normal, both eyes and all related structures Resp Effort & Inspection: normal respiratory effort Auscultation: clear to auscultation bilaterally Cardio Rhythm: regular rhythm Heart sounds: S1 normal heart sound present and S2 normal heart sound present GI Inspection: Yes normal to inspection Assessment and Plan Assessment & Plan (1) Venous insufficiency: Code(s): I87.2 - Venous insufficiency (chronic) (peripheral) Plan: Patient will try compression knee-highs (2) Hyperlipidemia: Comment: Intolerant to pravastatin, myalgia Code(s): E78.5 - Hyperlipidemia, unspecified Plan: cont Crestor (3) Asthma: Comment: Negative chest x-ray 03/12 Code(s): J45.909 - Unspecified asthma, uncomplicated Plan: cont Advair (4) Vitamin D deficiency: Code(s): E55.9 - Vitamin D deficiency, unspecified Orders: Orders Complete Blood Count Auto Diff 6 Months E55.9 - Vitamin D deficiency, unspecified, E78.5 - Hyperlipidemia, unspecified, J45.909 - Unspecified asthma, uncomplicated, Z00.00 - Encounter for general adult medical examination without abnormal findings Vitamin D 25-OH Total 6 Months E55.9 - Vitamin D deficiency, unspecified, E78.5 - Hyperlipidemia, unspecified, J45.909 - Unspecified asthma, uncomplicated, Z00.00 - Encounter for general adult medical examination without abnormal findings Comprehensive [place]. Panel Fast 6 Months E55.9 - Vitamin D deficiency, unspecified, E78.5 - Hyperlipidemia, unspecified, J45.909 - Unspecified asthma, uncomplicated, Z00.00 - Encounter for general adult medical examination without abnormal findings Lipid Panel 6 Months E55.9 - Vitamin D deficiency, unspecified, E78.5 - Hyperlipidemia, unspecified, J45.909 - Unspecified asthma, uncomplicated, Z00.00 - Encounter for general adult medical examination without abnormal findings TSH reflex Free T4 6 Months E55.9 - Vitamin D deficiency, unspecified, E78.5 - Hyperlipidemia, unspecified, J45.909 - Unspecified asthma, uncomplicated, Z00.00 - Encounter for general adult medical examination without abnormal findings UA w Microscopic 6 Months E55.9 - Vitamin D deficiency, unspecified, E78.5 - Hyperlipidemia, unspecified, J45.909 - Unspecified asthma, uncomplicated, Z00.00 - Encounter for general adult medical examination without abnormal findings Medications: New stephan.stocking,knee,reg,smal As directed 12 ea 0RF I87.2 - Venous insufficiency (chronic) (peripheral) Coding Level of Care Code Est Pt Level 4 (53738) Diagnoses Venous insufficiency I87.2 Hyperlipidemia E78.5 Asthma J45.909 Vitamin D deficiency E55.9
== END 2024-06-24 10:46 | disposition home or self-care (01) ==
PROVIDERS: Visit Provider Internal Medicine
DX: I87.2 Venous insufficiency (chronic) (peripheral) (principal); E78.5 Hyperlipidemia, unspecified; J45.909 Unspecified asthma, uncomplicated; E55.9 Vitamin D deficiency, unspecified
CPT/HCPCS: 99214

== ENCOUNTER 2024-06-28 09:11 | Outpatient (REF) | payer BC, SELFPAY ==
[2024-06-28 10:02] LABS: MANUAL DIFF FLAG NO
[2024-06-28 10:05] LABS: Basophils Absolute Auto 0.1 X10*3/uL (0.0-0.2); Basophils Percent Auto 0.6 % (0-2); Eosinophils Absolute Auto 0.5 X10*3/uL (0.0-0.4); Eosinophils Percent Auto 6.4 % (0-4); Hematocrit 40.7 % (37.0-47.0); Hemoglobin 13.8 g/dl (12.0-16.0); Imm Gran Abs Auto 0.02 X10*3/uL (0.00-0.03); Imm Gran Pct Auto 0.3 % (0.0-0.4); Lymphocytes Absolute Auto 2.6 X10*3/uL (1.2-4.9); Mean Corpuscular HGB Conc 33.9 g/dl (31.0-35.0); Mean Corpuscular Hemoglobin 30.2 pg (27.0-33.0); Mean Corpuscular Volume 89.1 fL (80.0-98.0); Mean Platelet Volume 10.5 fL (9.4-12.3); Monocytes Absolute Auto 0.9 X10*3/uL (0.1-1.2); Monocytes Percent Auto 11.9 % (2-11); Neutrophils Absolute Auto 3.6 x10*3/uL (2.0-8.3); Neutrophils Percent Auto 46.8 % (45-73); Platelet Count 248 X10*3/uL (160-400); Red Blood Count 4.57 X10*6/uL (4.20-5.50); Red Cell Distribution Width 13.1 % (11.0-16.0); White Blood Count 7.7 X10*3/uL (4.8-10.8)
[2024-06-28 10:08] LABS: Appearance Urine Clear; Color Urine Yellow; Glucose Urine UA Negative (Negative); Leukocyte Esterase Urine Negative (Negative); Nitrite Urine Negative (Negative); Urine Blood Negative (Negative); Urine Ketones Negative (Negative); Urine Protein Negative (Neg-Trace)
[2024-06-28 10:14] LABS: Bacteria Urine Trace (None Seen); Hyaline Casts Urine 0-2 /LPF (0-2); RBC Urine 0-2 /HPF (0-2); WBC Urine 0-5 /HPF (0-5)
[2024-06-28 11:13] LABS: Alanine Aminotransferase 24 U/L (0-31); Albumin Level 4.2 g/dL (3.5-5.0); Alkaline Phosphatase 79 U/L (39-117); Anion Gap 12 (12-20); Aspartate Amino Transferase 22 U/L (5-31); Bilirubin Total 0.6 mg/dL (0.0-1.0); Blood Urea Nitrogen 16 mg/dL (9-16); Calcium 9.1 mg/dL (8.4-10.2); Carbon Dioxide 25 mmol/L (22-29); Chloride 107 mmol/L (96-108); Cholesterol 235 mg/dL (<200); Estimated Glomerular Filt Rate > 60; Glucose Fasting 93 mg/dL (60-99); HDL Cholesterol 52 mg/dL (>40); LDL Cholesterol Calculated 150 mg/dL (<100); Potassium 3.8 mmol/L (3.3-5.1); Sodium 140 mmol/L (135-145); Total Protein 7.1 g/dL (6.5-8.0); Triglycerides 168 mg/dL (<150)
[2024-06-28 11:29] LABS: TSH reflex Free T4 2.21 uIU/mL (0.32-4.0); Vitamin D 25-OH Total 26.2 ng/mL (>30)
== END 2024-06-28 09:12 | disposition home or self-care (01) ==
LOC: HO.HMGCLDS 09:11
PROVIDERS: PCP Internal Medicine; Visit Provider Internal Medicine
DX: Z00.00 Encounter for general adult medical examination without abnormal findings (principal); C54.1 Malignant neoplasm of endometrium; E78.5 Hyperlipidemia, unspecified
CPT/HCPCS: 36415; 80053; 80061; 81001; 82306; 84443; 85025

== ENCOUNTER 2024-08-12 09:14 | Outpatient (AMB) | payer BC, SELFPAY ==
--- NOTE | 2024-08-12 09:15 | MHC.PC.OV ---
Vital Signs 08/12/24 09:16 Height 5 ft Weight 164 lb BMI 32.0 BP 122/68 Blood Pressure Location Rt brachial Position Sitting Pulse 83 Pulse Source Pulse Oximeter Pulse Oximetry (%) 97 Oxygen Delivery Method Room Air Intake Visit Reasons: Follow up Allergies pravastatin Adverse Reaction (Intermediate, Verified 08/12/24 09:16) myalgia Medication List - Last Reconciled 08/12/24 by Ursula Squires MD Advair Diskus 100-50 mcg/dose (fluticasone propion-salmeterol) 1 inh inhalation BID NS albuterol sulfate 90 mcg/actuation (ProAir HFA) 2 puffs inhalation Q6H PRN cholecalciferol (vitamin D3) 50 mcg PO DAILY stephan.stocking,knee,reg,smal As directed meclizine 25 mg PO BID PRN omeprazole 20 mg PO DAILY rosuvastatin (Crestor) 5 mg PO DAILY valacyclovir (Valtrex) 2,000 mg (2 x 1 gram) PO BID Tobacco use date assessed: 08/12/24 Fall risk assessment: No Falls in past year Last assessed Fall Risk: 08/12/24 Dental Screening Dental Screen Date: 06/24/24 HPI Follow up HPI Details pt c/o bilateral knee pain radiating to both shins worse at night after walking wearing heavy boots at work for 8 hours. Patient denies knee joints or leg swelling. She complains of pain right plantar region worse in the morning when starting to walk. Patient is started taking rosuvastatin for hyperlipidemia 3 weeks ago. [facility] Medical History Shoulder pain, right Normal pelvic exam Normal breast exam GERD (gastroesophageal reflux disease) Annual physical exam Cough Abdominal pain Surgical History Hx of colonoscopy Family History Father No problems noted. Mother No problems noted. 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 Alvarez Alvarez, Zoraida Rodgers, Daniel Hollingsworth and colleagues, with an educational cielo from [employer]. Review of Systems Const All systems reviewed & are unremarkable except as noted in HPI and below Card Reports no additional complaints Resp Reports no additional complaints GI Reports no additional complaints Physical exam (Primary Care) Vital Signs: Last Vital Signs Pulse 83 08/12/24 09:16 BP 122/68 08/12/24 09:16 Pulse Ox 97 08/12/24 09:16 Oxygen Delivery Method Room Air 08/12/24 09:16 BMI result Body Mass Index 32.0 Tobacco/Smoking Status: Tobacco use Status Tobacco use date assessed 08/12/24 08/12/24 09:21 Patient Tobacco Use Status Former Tobacco user 08/12/24 09:21 e-Cigarette/Vaping Use Never Used 08/12/24 09:21 Thrive Assessment: Date of Thrive Assessment Date Thrive assessed 01/03/24 08/12/24 09:21 Const General: no acute distress Neck Neck: Yes supple Resp Effort & Inspection: normal respiratory effort Auscultation: clear to auscultation bilaterally Cardio Rhythm: regular rhythm Heart sounds: S1 normal heart sound present and S2 normal heart sound present Extrem Other: Both knees with slight crepitus but full range of motion no joint tenderness or swelling. There is no calf tenderness or lower extremity swelling. Reproducible tenderness at the plantar aspect of right heel no soft tissue swelling Assessment and Plan Assessment & Plan (1) Knee pain, bilateral: Code(s): M25.561 - Pain in right knee; M25.562 - Pain in left knee Plan: Check x-ray patient was advised to continue stationary bike exercises, if the knee pain persists she will be referred to physical therapy (2) Plantar fasciitis of right foot: Code(s): M72.2 - Plantar fascial fibromatosis Plan: For the fasciitis stretching exercises given to the patient ,she was advised to wear shoe inserts. if the symptoms persist she will be referred to PT (3) Asthma: Comment: Negative chest x-ray 03/12 Code(s): J45.909 - Unspecified asthma, uncomplicated Plan: Continue Advair Orders: Orders XR knee standing BI Today M25.561 - Pain in right knee, M25.562 - Pain in left knee Coding Level of Care Code Est Pt Level 3 (99628) Diagnoses Knee pain, bilateral M25.561; M25.562 Plantar fasciitis of right foot M72.2 Asthma J45.909
[2024-08-12 09:16] VITALS: BP 122/68; PULSE 83; O2SAT 97; BMI 32.0
== END 2024-08-12 09:54 | disposition home or self-care (01) ==
PROVIDERS: PCP Internal Medicine; Visit Provider Internal Medicine
DX: M25.561 Pain in right knee (principal); M25.562 Pain in left knee; M72.2 Plantar fascial fibromatosis; J45.909 Unspecified asthma, uncomplicated

== ENCOUNTER → 2024-08-12 09:14 | Outpatient (BNVA) | payer BC, SELFPAY | PROVIDERS: PCP Internal Medicine; Visit Provider Internal Medicine | DX: M25.561 Pain in right knee (principal); M25.562 Pain in left knee ==

== ENCOUNTER 2024-08-12 09:49 | Outpatient (REF) | payer BC, SELFPAY ==
--- NOTE | ~2024-08-12 | XR_ITS ---
EXAMINATION: XR KNEE AP STANDING CLINICAL INFORMATION: Pain in right knee. COMPARISON: None available. TECHNIQUE: AP bilateral standing view of the knees was obtained. FINDINGS: There are mild degenerative changes seen with minimal narrowing of both medial compartments. No other abnormalities are seen on this limited study. No chondrocalcinosis or fractures. XR/XR knee standing BI IMPRESSION: Mild degenerative changes with minimal narrowing of both medial compartments. Electronically signed by: Jakob Joshi MD 08/12/2024 10:28 PM EDT
== END 2024-08-12 09:50 | disposition home or self-care (01) ==
LOC: HO.HMGCX 09:49
PROVIDERS: PCP Internal Medicine; Visit Provider Internal Medicine
DX: M25.561 Pain in right knee (principal); M25.562 Pain in left knee
CPT/HCPCS: 73565

== ENCOUNTER 2024-11-04 12:03 | Outpatient (AMB) | payer BC, SELFPAY ==
--- NOTE | 2024-11-04 12:06 | A.OFFPC_ITS ---
Vital Signs 11/04/24 12:08 Height 5 ft Weight 167 lb BMI 32.6 BP 126/80 Blood Pressure Location Rt brachial Position Sitting Pulse 80 Pulse Source Pulse Oximeter Pulse Oximetry (%) 97 Intake Visit Reasons: Ear pain Allergies pravastatin Adverse Reaction (Intermediate, Verified 11/04/24 12:08) myalgia Medication List - Last Reconciled 11/04/24 by Ursula Squires MD Advair Diskus 100-50 mcg/dose (fluticasone propion-salmeterol) 1 inh inhalation BID NS albuterol sulfate 90 mcg/actuation (ProAir HFA) 2 puffs inhalation Q6H PRN azithromycin For 250 mg dose pack: take 500 mg today (day 1), then 250 mg for 4 days (days 2-5) PO cholecalciferol (vitamin D3) 50 mcg PO DAILY stephan.stocking,knee,reg,smal As directed meclizine 25 mg PO BID PRN meloxicam 15 mg PO DAILY omeprazole 20 mg PO DAILY rosuvastatin (Crestor) 5 mg PO DAILY valacyclovir (Valtrex) 2,000 mg (2 x 1 gram) PO BID valacyclovir (Valtrex) 1,000 mg PO Q8H Tobacco use date assessed: 08/12/24 Fall risk assessment: No Falls in past year Last assessed Fall Risk: 11/04/24 Dental Screening Dental Screen Date: 06/24/24 HPI Ear pain HPI Details Pt c/o R ear, R side of face and scalp pain and sensitivity to touch for 3 days. Patient denies rash, change in hearing, fever chills sore throat cough body aches. She has been under lot of stress her son with the family is coming from [place] for [place]. [facility] Medical History Shoulder pain, right Normal pelvic exam Normal breast exam GERD (gastroesophageal reflux disease) Annual physical exam Cough Abdominal pain Surgical History Hx of colonoscopy Family History Father No problems noted. Mother No problems noted. 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 Alvarez Alvarez, Zoraida Rodgers, Daniel Hollingsworth and colleagues, with an educational cielo from [employer]. Review of Systems Const All systems reviewed & are unremarkable except as noted in HPI and below Eyes Reports no additional complaints ENT Reports no additional complaints Card Reports no additional complaints Resp Reports no additional complaints GI Reports no additional complaints Reports no additional complaints Physical exam (Primary Care) Vital Signs: Last Vital Signs Pulse 80 11/04/24 12:08 BP 126/80 11/04/24 12:08 Pulse Ox 97 11/04/24 12:08 BMI result Body Mass Index 32.6 Tobacco/Smoking Status: Tobacco use Status Tobacco use date assessed 08/12/24 11/04/24 12:08 Patient Tobacco Use Status Former Tobacco user 11/04/24 12:08 e-Cigarette/Vaping Use Never Used 11/04/24 12:08 Thrive Assessment: Date of Thrive Assessment Date Thrive assessed 01/03/24 11/04/24 12:08 Const General: no acute distress HENMT Head: Yes normal to inspection Ears: hearing grossly normal bilaterally General nose exam: Normal external nose present Face and sinus: Yes normal facial exam Mouth: Normal oral and palatal mucosa present Throat: Yes posterior oropharynx normal Eyes General: appearance normal, both eyes and all related structures Neck Neck: Yes no lymphadenopathy and Yes supple Resp Effort & Inspection: normal respiratory effort Auscultation: clear to auscultation bilaterally Cardio Rhythm: regular rhythm Heart sounds: S1 normal heart sound present and S2 normal heart sound present Coding Level of Care Code Est Pt Level 3 (19685) Diagnoses Unilateral facial pain R51.9 Assessment & Plan Assessment & Plan (1) Unilateral facial pain: Code(s): R51.9 - Headache, unspecified Category: Medical Plan: Treat for possible shingles with valacyclovir and Z-Colin, continue ibuprofen p.r.n. Medications: New valacyclovir (Valtrex) 1,000 mg PO Q8H 30 tabs 0RF azithromycin For 250 mg dose pack: take 500 mg today (day 1), then 250 mg for 4 days (days 2-5) PO 6 tabs 0RF
[2024-11-04 12:08] VITALS: BP 126/80; PULSE 80; O2SAT 97; BMI 32.6
== END 2024-11-04 12:38 | disposition home or self-care (01) ==
PROVIDERS: PCP Internal Medicine; Visit Provider Internal Medicine
DX: R51.9 Headache, unspecified (principal)

== ENCOUNTER → 2024-11-04 12:03 | Outpatient (BNVA) | payer BC, SELFPAY | PROVIDERS: PCP Internal Medicine; Visit Provider Internal Medicine ==

== ENCOUNTER 2025-01-08 10:10 | Outpatient (REF) | payer BC, SELFPAY ==
[2025-01-08 13:11] LABS: Appearance Urine Turbid; Color Urine Yellow; Glucose Urine UA Negative (Negative); Leukocyte Esterase Urine Negative (Negative); Nitrite Urine Negative (Negative); Specific Gravity - Urine >= 1.030 (1.005-1.025); Urine Blood Negative (Negative); Urine Ketones Negative (Negative); Urine Protein Negative (Neg-Trace)
[2025-01-08 13:18] LABS: Bacteria Urine 1+ (None Seen); Hyaline Casts Urine 0-2 /LPF (0-2); RBC Urine 0-2 /HPF (0-2); WBC Urine 0-5 /HPF (0-5)
[2025-01-08 13:19] LABS: MANUAL DIFF FLAG NO
[2025-01-08 13:41] LABS: Basophils Percent Auto 0.5 % (0-2); Eosinophils Absolute Auto 0.4 X10*3/uL (0.0-0.4); Eosinophils Percent Auto 5.2 % (0-4); Hematocrit 42.4 % (37.0-47.0); Hemoglobin 14.2 g/dl (12.0-16.0); Imm Gran Abs Auto 0.03 X10*3/uL (0.00-0.03); Imm Gran Pct Auto 0.4 % (0.0-0.4); Lymphocytes Absolute Auto 2.7 X10*3/uL (1.2-4.9); Lymphocytes Percent Auto 32.6 % (20-40); Mean Corpuscular HGB Conc 33.5 g/dl (31.0-35.0); Mean Corpuscular Hemoglobin 30.9 pg (27.0-33.0); Mean Corpuscular Volume 92.4 fL (80.0-98.0); Mean Platelet Volume 10.7 fL (9.4-12.3); Monocytes Absolute Auto 0.9 X10*3/uL (0.1-1.2); Monocytes Percent Auto 10.8 % (2-11); Neutrophils Absolute Auto 4.2 x10*3/uL (2.0-8.3); Neutrophils Percent Auto 50.5 % (45-73); Platelet Count 258 X10*3/uL (160-400); Red Blood Count 4.59 X10*6/uL (4.20-5.50); Red Cell Distribution Width 13.1 % (11.0-16.0); White Blood Count 8.4 X10*3/uL (4.8-10.8)
[2025-01-08 14:11] LABS: Alanine Aminotransferase 23 U/L (0-31); Albumin Level 4.3 g/dL (3.5-5.0); Alkaline Phosphatase 74 U/L (39-117); Anion Gap 12 (12-20); Aspartate Amino Transferase 29 U/L (5-31); Bilirubin Total 0.6 mg/dL (0.0-1.0); Blood Urea Nitrogen 12 mg/dL (9-16); Calcium 9.1 mg/dL (8.4-10.2); Carbon Dioxide 25 mmol/L (22-29); Chloride 109 mmol/L (96-108); Cholesterol 162 mg/dL (<200); Estimated Glomerular Filt Rate > 60; Glucose Fasting 90 mg/dL (60-99); HDL Cholesterol 59 mg/dL (>40); LDL Cholesterol Calculated 84 mg/dL (<100); Sodium 142 mmol/L (135-145); TSH reflex Free T4 2.57 uIU/mL (0.32-4.0); Total Protein 7.4 g/dL (6.5-8.0); Triglycerides 96 mg/dL (<150); Vitamin D 25-OH Total 57.3 ng/mL (>30)
== END 2025-01-08 10:11 | disposition home or self-care (01) ==
LOC: HO.HMGCLDS 10:10
PROVIDERS: PCP Internal Medicine; Visit Provider Internal Medicine
DX: Z00.00 Encounter for general adult medical examination without abnormal findings (principal); J45.909 Unspecified asthma, uncomplicated; E78.5 Hyperlipidemia, unspecified; E55.9 Vitamin D deficiency, unspecified
CPT/HCPCS: 36415; 80053; 80061; 81001; 82306; 84443; 85025

== ENCOUNTER 2025-01-13 10:03 | Outpatient (AMB) | payer BC, SELFPAY ==
[2025-01-13 10:34] VITALS: BP 126/76; PULSE 82; RESP 18; TEMP 36.8; O2SAT 97; BMI 32.0
--- NOTE | 2025-01-13 10:34 | A.OFFPC_ITS ---
Vital Signs 01/13/25 10:34 Height 5 ft Weight 164 lb BMI 32.0 BP 126/76 Blood Pressure Location Lt brachial Position Sitting Respiration 18 Pulse 82 Pulse Source Pulse Oximeter Temp 98.3 F Temp Source Oral Pulse Oximetry (%) 97 Oxygen Delivery Method Room Air Intake Visit Reasons: Annual PE Intake Note: Pt is here today for PE. Allergies pravastatin Adverse Reaction (Intermediate, Verified 01/13/25 10:36) myalgia Medication List - Last Reconciled 01/13/25 by Ursula Squires MD Advair Diskus 100-50 mcg/dose (fluticasone propion-salmeterol) 1 inh inhalation BID NS albuterol sulfate 90 mcg/actuation (ProAir HFA) 2 puffs inhalation Q6H PRN cholecalciferol (vitamin D3) 50 mcg PO DAILY stephan.stocking,knee,reg,smal As directed meclizine 25 mg PO BID PRN omeprazole 20 mg PO DAILY rosuvastatin (Crestor) 5 mg PO DAILY valacyclovir (Valtrex) 2,000 mg (2 x 1 gram) PO BID valacyclovir (Valtrex) 1,000 mg PO Q8H Tobacco use date assessed: 01/13/25 Fall risk assessment: No Falls in past year Last assessed Fall Risk: 01/13/25 Dental Screening Dental Screen Date: 01/13/25 Did you have a dental visit in the last 12 months?: Yes Did you have a dental problem in the last 6 months where you did not have access to dental care?: No Was dental information given to patient?: Patient has dentist HPI Annual PE HPI Details Pt presents for PE. PFSH Medical History Shoulder pain, right Normal pelvic exam Normal breast exam GERD (gastroesophageal reflux disease) Annual physical exam Cough Abdominal pain Surgical History Hx of colonoscopy Family History Father No problems noted. Mother No problems noted. 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 1. Little interest or pleasure in doing things: not at all 2. Feeling down, depressed, or hopeless: not at all 3. Trouble falling or staying asleep, or sleeping too much: not at all 4. Feeling tired or having little energy: not at all 5. Poor appetite or overeating: not at all 6. Feeling bad about yourself - or that you are a failure or have let yourself or your family down: not at all 7. Trouble concentrating on things, such as reading the newspaper or watching television: not at all 8. Moving or speaking so slowly that other people could have noticed. Or the opposite - being so fidgety or restless that you have been moving around a lot more than usual: not at all 9. Thoughts that you would be better off or of hurting yourself in some way: not at all Total score: 0 Depression Screening Interpretation: Negative Depression Screening Done: Yes 65890 - PHQ-9 Billing: Yes Source: Developed by Drs. Alvarez Alvarez, Zoraida Rodgers, Daniel Hollingsworth and colleagues, with an educational cielo from [employer]. Thrive Questionnaire Date Thrive assessed: 01/13/25 I am a: Patient What is your living situation today?: I have a steady place to live Within the past 12 months, did the food you bought not last and you didn't have the money to get more?: Never true Within the past 12 months, did you worry whether your food would run out before you got money to buy more?: Never true Do you have trouble paying for medicines?: No Do you have trouble getting transportation to medical appointments?: No Do you have trouble paying your heating and electricity bill?: No Do you have trouble taking care of your child, family member or friend?: No Do you have trouble with day-to-day activities such as bathing, preparing meals, shopping, managing finances, etc.?: No Are you currently unemployed and looking for a job?: No Are you interested in more education?: No Please select the resources that you would like help with: None THRIVE Score: 0 AUDIT C Alcohol Use Questionnaire (AUDIT-C) 1. How often do you have a drink containing alcohol?: Never 3. How often do you have six or more drinks on one occasion?: Never Total Score: 0 DANDY-7 AMB Questionnaire DANDY-7 Date DANDY - 7 assessed: 01/13/25 Feeling nervous, anxious, or on edge: 0 = Not at all Not being able to stop or control worryin = Not at all Worrying too much about different things: 0 = Not at all Trouble relaxin = Not at all Being so restless that it is hard to sit still: 0 = Not at all Becoming easily annoyed or irritable: 0 = Not at all Feeling afraid as if something awful might happen: 0 = Not at all Total DANDY-7 score (0-4 normal; 5-9 mild; 10-14 moderate; 15-21 severe): 0 Source: Developed by Drs. Alvarez Alvarez, Zoraida Rodgers, Daniel Hollingsworth and colleagues, with an educational cielo from [employer]. DANDY-7 Assessment Billing DANDY-7 Assessment Tool: DANDY-7 Assessment 53421 Review of Systems Const All systems reviewed & are unremarkable except as noted in HPI and below Eyes Reports no additional complaints ENT Reports no additional complaints Card Reports no additional complaints Resp Reports no additional complaints GI Reports no additional complaints Reports no additional complaints Physical exam (Primary Care) Vital Signs: Last Vital Signs Temp 98.3 F 01/13/25 10:34 Pulse 82 01/13/25 10:34 Resp 18 01/13/25 10:34 BP 126/76 01/13/25 10:34 Pulse Ox 97 01/13/25 10:34 Oxygen Delivery Method Room Air 01/13/25 10:34 BMI result Body Mass Index 32.0 Tobacco/Smoking Status: Tobacco use Status Tobacco use date assessed 01/13/25 01/13/25 10:46 Patient Tobacco Use Status Former Tobacco user 01/13/25 10:34 e-Cigarette/Vaping Use Never Used 01/13/25 10:34 PHQ-9: PHQ-9 Score PHQ-9: Total score 0 01/13/25 10:47 Depression Screening Interpretation: Negative Thrive Assessment: Date of Thrive Assessment Date Thrive assessed 01/13/25 01/13/25 10:43 Const General: no acute distress HENMT Head: Yes normal to inspection Ears: hearing grossly normal bilaterally General nose exam: Normal external nose present Face and sinus: Yes normal facial exam Mouth: Normal oral and palatal mucosa present Throat: Yes posterior oropharynx normal Eyes General: appearance normal, both eyes and all related structures Neck Neck: Yes no lymphadenopathy and Yes supple Resp Effort & Inspection: normal respiratory effort Auscultation: clear to auscultation bilaterally Cardio Rhythm: regular rhythm Heart sounds: S1 normal heart sound present and S2 normal heart sound present GI Inspection: Yes normal to inspection Palpation (GI): Soft to palpation Percussion: Yes normal to percussion Auscultation: normal bowel sounds Coding Level of Care Code Est Pt Prev Care >65y(86500) Diagnoses Endometrial adenocarcinoma C54.1 Annual physical exam Z00.00 Asthma J45.909 Hyperlipidemia E78.5 Additional Codes DANDY-7 Assessment Billing - DANDY-7 Assessment Tool: DANDY-7 Assessment 64533 ([id number]) PHQ-9 - 23118 - PHQ-9 Billing: Yes ([id number]) Assessment & Plan Assessment & Plan (1) Endometrial adenocarcinoma: Comment: stage 1A , 08/11 s/p MADDISON/BSO f/u with [facility] Oncology Code(s): C54.1 - Malignant neoplasm of endometrium Category: Medical Plan: Follow-up with customer engagement analyst (2) Annual physical exam: Code(s): Z00.00 - Encounter for general adult medical examination without abnormal findings Category: Medical Plan: Well-balanced diet regular physical activity discussed with the patient. She is up-to-date with the mammogram colonoscopy (3) Asthma: Comment: Negative chest x-ray 03/12 Code(s): J45.909 - Unspecified asthma, uncomplicated Category: Medical Plan: Continue Advair as needed (4) Hyperlipidemia: Comment: Intolerant to pravastatin, myalgia Code(s): E78.5 - Hyperlipidemia, unspecified Category: Medical Plan: Continue Crestor Orders: Orders Lipid Panel 1 Year C54.1 - Malignant neoplasm of endometrium, E78.5 - Hyperlipidemia, unspecified, Z00.00 - Encounter for general adult medical examination without abnormal findings Vitamin D 25-OH Total 1 Year C54.1 - Malignant neoplasm of endometrium, E78.5 - Hyperlipidemia, unspecified, Z00.00 - Encounter for general adult medical examination without abnormal findings Comprehensive [place]. Panel Fast 1 Year C54.1 - Malignant neoplasm of endometrium, E78.5 - Hyperlipidemia, unspecified, Z00.00 - Encounter for general adult medical examination without abnormal findings Complete Blood Count Auto Diff 1 Year C54.1 - Malignant neoplasm of endometrium, E78.5 - Hyperlipidemia, unspecified, Z00.00 - Encounter for general adult medical examination without abnormal findings TSH reflex Free T4 1 Year C54.1 - Malignant neoplasm of endometrium, E78.5 - Hyperlipidemia, unspecified, Z00.00 - Encounter for general adult medical examination without abnormal findings Medications: Refilled rosuvastatin (Crestor) 5 mg PO DAILY 90 tabs 3RF Discontinued valacyclovir (Valtrex) Discontinued Reason: Doctor's Order 2,000 mg (2 x 1 gram) PO BID 4 tabs 5RF valacyclovir (Valtrex) Discontinued Reason: Doctor's Order 1,000 mg PO Q8H 30 tabs 0RF
--- OUTSIDE RECORDS SUMMARY | 2025-01-13 11:08 | XMS_ITS | Encounter Summary ---
Author Organization [facility] Address [address] [place] [address] Care Team Providers Care Property Claims Manager Name Role Phone Sydnee Soto DO Primary Care Pro vider Unavailable Sydnee Soto DO Primary Care Pro vider Unavailable Sydnee Soto DO Unavailable Unavailable Community, Pcp Primary Care Provider Unavailabl e Encounter Details Date Type Department Care Team Description 06/30/2017 Marine Structural Designer Report Medical Records [address] [place] [id number] Mki Brown MD Social History Tobacco Use Types Packs/Day Years Used Date Smoking Tobacco: Former Alcohol Use Standard Drinks/Week Comments No 0 (1 standard drink = 0.6 oz pur e alcohol) Sex Assigned at Date Recorded Not on file documented as of this encounter Plan of Treatment Not on file documented as of this encounter Visit Diagnoses Not on filedocumented in this encounter Care Teams Property Claims Manager Relationship Specialty Start Date End Date Sydnee Soto DO PCP - General Internal Medicine 05/08/14 10/23/20 Sydnee Soto DO PCP - General 10/24/20 10/05/22 Community, Pcp PCP - General Internal Medicine 10/06/22 Sydnee Soto DO Internal Medicine 10/24/20 documented as of this encounter
--- OUTSIDE RECORDS SUMMARY | 2025-01-13 11:09 | XMS_ITS | Encounter Summary ---
Author Organization [facility] Address [facility] [place] [address] Care Team Providers Care Gi Technician Name Role Phone Sydnee Soto DO Primary Care Pro vider Unavailable Sydnee Soto DO Primary Care Pro vider Unavailable Sydnee Soto DO Unavailable Unavailable Community, Pcp Primary Care Provider Unavailabl e Reason for Visit * Reason Onset Date Comments Appointment-Internal Referral 12/16/2015 ysiatry Encounter Details Date Type Department Care Team Description 12/16/2015 [place] [address] Justice Cooper DO Appointment-Internal Referral (Physiatry) Social History Tobacco Use Types Packs/Day Years Used Date Smoking Tobacco: Former Alcohol Use Standard Drinks/Week Comments No 0 (1 standard drink = 0.6 oz pur e alcohol) Sex Assigned at Date Recorded Not on file documented as of this encounter Miscellaneous Notes * Telephone Encounter - Tamar Solo - 12/16/2015 8:16 AM EST Patient was referred to Physiatry regarding: neck pain and right shoulder pain Priority: Next Available Called and sent letter with no response. Taking off from referral report. documented in this encounter Plan of Treatment Not on file documented as of this encounter Visit Diagnoses Not on filedocumented in this encounter Care Teams Gi Technician Relationship Specialty Start Date End Date Sydnee Soto DO PCP - General Internal Medicine 05/08/14 10/23/20 Sydnee Soto DO PCP - General 10/24/20 10/05/22 [facility], Pcp PCP - General Internal Medicine 10/06/22 Sydnee Soto DO Internal Medicine 10/24/20 documented as of this encounter
--- OUTSIDE RECORDS SUMMARY | 2025-01-13 11:09 | XMS_ITS | Encounter Summary ---
Author Organization [facility] Address [address] [place] [address] Care Team Providers Care Plastics Supervisor Name Role Phone Sydnee Soto DO Primary Care Pro vider Unavailable Sydnee Soto DO Primary Care Pro vider Unavailable Sydnee Soto DO Unavailable Unavailable Community, Pcp Primary Care Provider Unavailabl e Reason for Referral * Non DENIS (Urgent) - Authorized/Booked Specialty Diagnoses / Procedures Referred By Tez klein Referred To Contact Podiatry Procedures REFERRAL TO PODIATRY Sydnee Soto DO [address] [place] [address] Pod/[address] [address] Referral ID Status Reason Start Date Expiration Date V isits Requested Visits Authorized [id number] NURSE Authorized/ Booked 05/05/2015 05/04/2016 1 1 Encounter Details Date Type Department Care Team Description 05/05/2015 Orders Only Adult [facility] [place] [address] [place] [id number] Sydnee Soto DO Right foot pain (Primary Dx) Social History Tobacco Use Types Packs/Day Years Used Date Smoking Tobacco: Former Alcohol Use Standard Drinks/Week Comments No 0 (1 standard drink = 0.6 oz pur e alcohol) Sex Assigned at Date Recorded Not on file documented as of this encounter Plan of Treatment Not on file documented as of this encounter Visit Diagnoses Diagnosis Right foot pain- Primary Pain in limb documented in this encounter Care Teams Plastics Supervisor Relationship Specialty Start Date End Date Sydnee Soto DO PCP - General Internal Medicine 05/08/14 10/23/20 Sydnee Soto DO PCP - General 10/24/20 10/05/22 [facility], Pcp PCP - General Internal Medicine 10/06/22 Sydnee Soto DO Internal Medicine 10/24/20 documented as of this encounter
--- OUTSIDE RECORDS SUMMARY | 2025-01-13 11:09 | XMS_ITS | Encounter Summary ---
Author Organization [facility] Address [address] [place] [address] Care Team Providers Care Supervisor Safety Deposit Name Role Phone Sydnee Soto DO Primary Care Pro vider Unavailable Sydnee Soto DO Primary Care Pro vider Unavailable Sydnee Soto DO Unavailable Unavailable Community, Pcp Primary Care Provider Unavailabl e Encounter Details Date Type Department Care Team Description 10/04/2017 Rehabilitation Therapy Technician Report Medical Records [address] [place] [id number] Stalin Figueredo Social History Tobacco Use Types Packs/Day Years Used Date Smoking Tobacco: Former Alcohol Use Standard Drinks/Week Comments No 0 (1 standard drink = 0.6 oz pur e alcohol) Sex Assigned at Date Recorded Not on file documented as of this encounter Plan of Treatment Not on file documented as of this encounter Visit Diagnoses Not on filedocumented in this encounter Care Teams Supervisor Safety Deposit Relationship Specialty Start Date End Date Sydnee Soto DO PCP - General Internal Medicine 05/08/14 10/23/20 Sydnee Soto DO PCP - General 10/24/20 10/05/22 Community, Pcp PCP - General Internal Medicine 10/06/22 Sydnee Soto DO Internal Medicine 10/24/20 documented as of this encounter
--- OUTSIDE RECORDS SUMMARY | 2025-01-13 11:09 | XMS_ITS | Encounter Summary ---
Author Organization [facility] Address [address] [place] [address] Care Team Providers Care Silver Miner Blasting Name Role Phone Sydnee Soto DO Primary Care Pro vider Unavailable Sydnee Soto DO Unavailable Unavailable Community, Pcp Primary Care Provider Unavailabl e Reason for Visit * Reason Onset Date Comments Appointment-Internal Referral 11/23/2020 ysiatry Encounter Details Date Type Department Care Team Description 11/23/2020 Telephone Physiatry - [address] [address] Sydnee Soto DO Appointment-Internal Referral (Physiatry) Social History Tobacco Use Types Packs/Day Years Used Date Smoking Tobacco: Former Smokeless Tobacco: Former Alcohol Use Standard Drinks/Week Comments No 0 (1 standard drink = 0.6 oz pur e alcohol) Sex Assigned at Date Recorded Not on file COVID-19 Exposure Response Date Recorded In the last month, have you been in contact with someone who was confirmed or suspected to have Coronavirus / COVID-19? No / Unsure 10/30/2020 8:53 AM EST documented as of this encounter Miscellaneous Notes * Telephone Encounter - Nicole Arcos - 11/23/2020 10:21 AM EST Referral to Physiatry: FYI to referring. No response from patient. All attempts exhausted to reach patient to book. documented in this encounter Plan of Treatment Not on file documented as of this encounter Visit Diagnoses Not on filedocumented in this encounter Care Teams Silver Miner Blasting Relationship Specialty Start Date End Date Sydnee Soto DO PCP - General 10/24/20 10/05/22 [facility], Pcp PCP - General Internal Medicine 10/06/22 Sydnee Soto DO Internal Medicine 10/24/20 documented as of this encounter
--- OUTSIDE RECORDS SUMMARY | 2025-01-13 11:09 | XMS_ITS | Encounter Summary ---
Author Organization [facility] Address [address] [place] [address] Care Team Providers Care Algebraist Name Role Phone Sydnee Soto DO Primary Care Pro vider Unavailable Sydnee Soto DO Primary Care Pro vider Unavailable Sydnee Soto DO Unavailable Unavailable Community, Pcp Primary Care Provider Unavailabl e Reason for Visit * Reason Onset Date Comments Letter 10/02/2020 Encounter Details Date Type Department Care Team Description 10/02/2020 Telephone Adult Medicine [address] [address] Sydnee Soto DO Letter Social History Tobacco Use Types Packs/Day Years [...] have Coronavirus / COVID-19? No / Unsure 09/15/2020 10:57 AM EDT documented as of this encounter Miscellaneous Notes * Telephone Encounter - Sydnee Pisano DO - 10/06/2020 9:37 AM EST Thank you but this isnt something we will provide * Telephone Encounter - Irina Brown - 10/02/2020 1:[address] watkins Spoke with patient daughter chencho on verbal was yelling a being rude advised patient gets seen by pulmonologiust and they should be able to write letter for her condition . And the daughter was yelling that no she needs the letter from pcp not casework specialist and that her mother does not speak hebrew and wants if from pcp . Also daughter * Telephone Encounter - Meena Reynaga - 10/02/2020 10:19 AM EST Letter requested for: work Reason for letter: Excuse Specific notations needed in body of letter: Patient needs a letter to excuse her from wearing a mask due to her asthma, she can only wear a shield Date needed for completion: MAURICIO When completed: Will pickle processor-call when completed: (home) documented in this encounter Plan of Treatment Not on file documented as of this encounter Visit Diagnoses Not on filedocumented in this encounter Care Teams Algebraist Relationship Specialty Start Date End Date Sydnee Soto DO PCP - General Internal Medicine 05/08/14 10/23/20 Sydnee Soto DO PCP - General 10/24/20 10/05/22 [facility], Pcp PCP - General Internal Medicine 10/06/22 Sydnee Soto DO Internal Medicine 10/24/20 documented as of this encounter
--- OUTSIDE RECORDS SUMMARY | 2025-01-13 11:09 | XMS_ITS | Encounter Summary ---
Author Organization [facility] Address [address] [place] [address] Care Team Providers Care Chief Lock Tender Operator Name Role Phone Sydnee Soto DO Primary Care Pro vider Unavailable Sydnee Soto DO Primary Care Pro vider Unavailable Sydnee Soto DO Unavailable Unavailable Community, Pcp Primary Care Provider Unavailabl e Encounter Details Date Type Department Care Team Description 12/30/2014 Release of Information Medical Records [address] [place] [address] Abstract, Provider Social History Tobacco Use Types Packs/Day Years Used Date Smoking Tobacco: Former Alcohol Use Standard Drinks/Week Comments No 0 (1 standard drink = 0.6 oz pur e alcohol) Sex Assigned at Date Recorded Not on file documented as of this encounter Plan of Treatment Not on file documented as of this encounter Visit Diagnoses Not on filedocumented in this encounter Care Teams Chief Lock Tender Operator Relationship Specialty Start Date End Date Sydnee Soto DO PCP - General Internal Medicine 05/08/14 10/23/20 Sydnee Soto DO PCP - General 10/24/20 10/05/22 Community, Pcp PCP - General Internal Medicine 10/06/22 Sydnee Soto DO Internal Medicine 10/24/20 documented as of this encounter
--- OUTSIDE RECORDS SUMMARY | 2025-01-13 11:09 | XMS_ITS | Encounter Summary ---
Author Organization [facility] Address [facility] [place] [address] Care Team Providers Care Business Objects Report Developer Name Role Phone Sydnee Soto DO Primary Care Pro vider Unavailable Sydnee Soto DO Unavailable Unavailable Community, Pcp Primary Care Provider Unavailabl e Reason for Visit * Reason Onset Date Comments Appointment-Internal Referral 11/16/2020 [place] Encounter Details Date Type Department Care Team Description 11/16/2020 Telephone Dermatology - [address] [id number] Sydnee Soto DO Appointment-Internal Referral (Derm) Social History Tobacco Use Types Packs/Day Years [...] * Telephone Encounter - Nicole Arcos - 11/16/2020 10:58 AM EST Referral to Dermatology: FYI to referring. No response from patient. All attempts exhausted to reach patient to book. documented in this encounter Plan of Treatment Not on file documented as of this encounter Visit Diagnoses Not on filedocumented in this encounter Care Teams Business Objects Report Developer Relationship Specialty Start Date End Date Sydnee Soto DO PCP - General 10/24/20 10/05/22 [facility], Pcp PCP - General Internal Medicine 10/06/22 Sydnee Soto DO Internal Medicine 10/24/20 documented as of this encounter
== END 2025-01-13 11:23 | disposition home or self-care (01) ==
PROVIDERS: PCP Internal Medicine; Visit Provider Internal Medicine
DX: C54.1 Malignant neoplasm of endometrium (principal); Z00.00 Encounter for general adult medical examination without abnormal findings; J45.909 Unspecified asthma, uncomplicated; E78.5 Hyperlipidemia, unspecified

== ENCOUNTER → 2025-01-13 10:03 | Outpatient (BNVA) | payer BC, SELFPAY | PROVIDERS: PCP Internal Medicine; Visit Provider Internal Medicine | DX: Z00.00 Encounter for general adult medical examination without abnormal findings (principal); C54.1 Malignant neoplasm of endometrium; J45.909 Unspecified asthma, uncomplicated; E78.5 Hyperlipidemia, unspecified | CPT/HCPCS: 96127 ==

== ENCOUNTER 2025-03-03 08:27 | Outpatient (AMB) | payer BC, SELFPAY ==
[2025-03-03 08:29] VITALS: BP 130/80; PULSE 71; RESP 18; TEMP 36.8; O2SAT 98; BMI 32.4
--- NOTE | 2025-03-03 08:29 | MHC.PC.OV ---
Vital Signs 03/03/25 08:29 Height 5 ft Weight 166 lb BMI 32.4 BP 130/80 Blood Pressure Location Lt brachial Position Sitting Respiration 18 Pulse 71 Pulse Source Pulse Oximeter Temp 98.3 F Temp Source Oral Pulse Oximetry (%) 98 Oxygen Delivery Method Room Air Intake Visit Reasons: Follow up Intake Note: Pt is here today for a sick visit. Pt c/o cough for a week now. Allergies pravastatin Adverse Reaction (Intermediate, Verified 03/03/25 08:32) myalgia Medication List - Last Reconciled 03/03/25 by Ursula Squires MD Advair Diskus 100-50 mcg/dose (fluticasone propion-salmeterol) 1 inh inhalation BID NS albuterol sulfate 90 mcg/actuation (ProAir HFA) 2 puffs inhalation Q6H PRN cholecalciferol (vitamin D3) 50 mcg PO DAILY stephan.stocking,knee,reg,smal As directed meclizine 25 mg PO BID PRN omeprazole 20 mg PO DAILY rosuvastatin (Crestor) 5 mg PO DAILY Tobacco use date assessed: 01/13/25 Fall risk assessment: No Falls in past year Last assessed Fall Risk: 03/03/25 Dental Screening Dental Screen Date: 01/13/25 HPI Follow up HPI Details Patient presents complaining of 1 week of productive cough with green sputum increasing wheezing and shortness or breath. Patient denies PND orthopnea pleurisy fever chills. She has not been taking Advair regularly. Hyperlipidemia is controlled on Crestor [facility] Medical History Shoulder pain, right Normal pelvic exam Normal breast exam GERD (gastroesophageal reflux disease) Annual physical exam Cough Abdominal pain Surgical History Hx of colonoscopy Family History Father No problems noted. Mother No problems noted. 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 Alvarez Alvarez, Zoraida Rodgers, Daniel Hollingsworth and colleagues, with an educational cielo from [employer]. Review of Systems Const All systems reviewed & are unremarkable except as noted in HPI and below ENT Reports no additional complaints Card Reports no additional complaints Resp Reports no additional complaints GI Reports no additional complaints Reports no additional complaints Physical exam (Primary Care) Vital Signs: Last Vital Signs Temp 98.3 F 03/03/25 08:29 Pulse 71 03/03/25 08:29 Resp 18 03/03/25 08:29 BP 130/80 03/03/25 08:29 Pulse Ox 98 03/03/25 08:29 Oxygen Delivery Method Room Air 03/03/25 08:29 BMI result Body Mass Index 32.4 Tobacco/Smoking Status: Tobacco use Status Tobacco use date assessed 01/13/25 03/03/25 08:37 Patient Tobacco Use Status Former Tobacco user 03/03/25 08:37 e-Cigarette/Vaping Use Never Used 03/03/25 08:37 Thrive Assessment: Date of Thrive Assessment Date Thrive assessed 01/13/25 03/03/25 08:37 Const General: no acute distress HENMT Head: Yes normal to inspection Ears: TM's normal bilaterally Face and sinus: Yes sinus tenderness Throat: Yes posterior oropharynx abnormal (Erythema) and Yes postnasal drainage Eyes General: appearance normal, both eyes and all related structures Neck Neck: Yes no lymphadenopathy and Yes supple Resp Effort & Inspection: normal respiratory effort Auscultation: wheezes and diminished lung sounds Cardio Rhythm: regular rhythm Heart sounds: S1 normal heart sound present and S2 normal heart sound present Coding Level of Care Code Est Pt Level 4 (87062) Diagnoses Bronchitis J40 Asthma J45.909 Hyperlipidemia E78.5 Assessment & Plan Assessment & Plan (1) Bronchitis: Code(s): J40 - Bronchitis, not specified as acute or chronic Category: Medical Plan: Z-Colin as prescribed, supportive care discussed with the patient, patient was advised to use albuterol as needed and restart Advair (2) Asthma: Comment: Negative chest x-ray 4/23 Code(s): J45.909 - Unspecified asthma, uncomplicated Category: Medical Plan: Continue Advair (3) Hyperlipidemia: Comment: Intolerant to pravastatin, myalgia Code(s): E78.5 - Hyperlipidemia, unspecified Category: Medical Plan: Continue statin Medications: New azithromycin For 250 mg dose pack: take 500 mg today (day 1), then 250 mg for 4 days (days 2-5) PO 6 tabs 0RF Changed From albuterol sulfate 90 mcg/actuation (ProAir HFA) 2 puffs inhalation Q6H PRN 8.5 grams 4RF shortness of breath or wheezing To albuterol sulfate 90 mcg/actuation 2 puffs inhalation Q6H PRN 8.5 grams 4RF shortness of breath or wheezing
== END 2025-03-03 12:09 | disposition home or self-care (01) ==
LOC: HO.HMCC 08:28
PROVIDERS: PCP Internal Medicine; Visit Provider Internal Medicine
DX: J40 Bronchitis, not specified as acute or chronic (principal); E78.5 Hyperlipidemia, unspecified

== ENCOUNTER → 2025-03-03 08:27 | Outpatient (BNVA) | payer BC, SELFPAY | PROVIDERS: PCP Internal Medicine; Visit Provider Internal Medicine | DX: Z13.89 Encounter for screening for other disorder (principal) ==

== ENCOUNTER 2025-03-24 09:28 | Outpatient (AMB) | payer BC, SELFPAY ==
[2025-03-24 09:30] VITALS: BP 124/76; PULSE 82; RESP 18; O2SAT 98; BMI 32.0
--- NOTE | 2025-03-24 09:30 | MHC.PC.OV ---
Vital Signs 03/24/25 09:30 Height 5 ft Weight 164 lb BMI 32.0 BP 124/76 Blood Pressure Location Lt brachial Position Sitting Respiration 18 Pulse 82 Pulse Source Pulse Oximeter Pulse Oximetry (%) 98 Oxygen Delivery Method Room Air Intake Visit Reasons: Follow up Intake Note: Pt is here today for a follow up on cough, wheezing. Allergies pravastatin Adverse Reaction (Intermediate, Verified 03/24/25 09:30) myalgia Medication List - Last Reconciled 03/24/25 by Ursula Squires MD Advair Diskus 100-50 mcg/dose (fluticasone propion-salmeterol) 1 inh inhalation BID NS albuterol sulfate 90 mcg/actuation 2 puffs inhalation Q6H PRN cholecalciferol (vitamin D3) 50 mcg PO DAILY stephan.stocking,knee,reg,smal As directed meclizine 25 mg PO BID PRN omeprazole 20 mg PO DAILY rosuvastatin (Crestor) 5 mg PO DAILY Tobacco use date assessed: 03/24/25 Fall risk assessment: No Falls in past year Last assessed Fall Risk: 03/24/25 Dental Screening Dental Screen Date: 03/24/25 Did you have a dental visit in the last 12 months?: Yes Did you have a dental problem in the last 6 months where you did not have access to dental care?: No Was dental information given to patient?: Patient has dentist HPI Follow up HPI Details Patient presents for the follow-up of chronic asthma hyperlipidemia. She complains of abdominal bloating increase gas but denies abdominal pain nausea vomiting change in bowel habits hematochezia melena. Patient had GI workup including negative EGD and colonoscopy. She tried to eliminate dairy and gluten from her diet without significant change [facility] Medical History (Updated 03/24/25 @ 15:55 by Ursula Squires MD) Shoulder pain, right Normal pelvic exam Normal breast exam GERD (gastroesophageal reflux disease) Annual physical exam Cough Abdominal pain Surgical History Hx of colonoscopy Family History Father No problems noted. Mother No problems noted. 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 How often do you have a drink containing alcohol?: Never 3. How often do you have six or more drinks on one occasion?: Never Total Score: 0 DANDY-7 AMB Questionnaire DANDY-7 Date DANDY - 7 assessed: 01/13/25 Source: Developed by Drs. Alvarez Alvarez, Zoraida Rodgers, Daniel Hollingsworth and colleagues, with an educational cielo from [employer]. Review of Systems Const All systems reviewed & are unremarkable except as noted in HPI and below Eyes Reports no additional complaints ENT Reports no additional complaints Card Reports no additional complaints Resp Reports no additional complaints GI Reports no additional complaints Reports no additional complaints Physical exam (Primary Care) Vital Signs: Last Vital Signs Pulse 82 03/24/25 09:30 Resp 18 03/24/25 09:30 BP 124/76 03/24/25 09:30 Pulse Ox 98 03/24/25 09:30 Oxygen Delivery Method Room Air 03/24/25 09:30 BMI result Body Mass Index 32.0 Tobacco/Smoking Status: Tobacco use Status Tobacco use date assessed 03/24/25 03/24/25 09:31 Patient Tobacco Use Status Former Tobacco user 03/24/25 09:31 e-Cigarette/Vaping Use Never Used 03/24/25 09:31 Thrive Assessment: Date of Thrive Assessment Date Thrive assessed 01/13/25 03/24/25 09:31 Const General: no acute distress HENMT Head: Yes normal to inspection Face and sinus: Yes normal facial exam Mouth: Normal oral and palatal mucosa present Eyes General: appearance normal, both eyes and all related structures Neck Neck: Yes supple Resp Effort & Inspection: normal respiratory effort Auscultation: clear to auscultation bilaterally Cardio Rhythm: regular rhythm Heart sounds: S1 normal heart sound present and S2 normal heart sound present GI Inspection: Yes normal to inspection Palpation (GI): Soft to palpation Percussion: Yes normal to percussion Auscultation: normal bowel sounds Coding Level of Care Code Est Pt Level 4 (01433) Diagnoses Asthma J45.909 Foot pain, bilateral M79.671; M79.672 Hyperlipidemia E78.5 Endometrial adenocarcinoma C54.1 IBS (irritable bowel syndrome) K58.9 Assessment & Plan Assessment & Plan (1) Asthma: Comment: Negative chest x-ray 03/12 Code(s): J45.909 - Unspecified asthma, uncomplicated Category: Medical Plan: Patient was advised to restart Advair (2) Foot pain, bilateral: Code(s): M79.671 - Pain in right foot; M79.672 - Pain in left foot Category: Medical Plan: For chronic bilateral feet pain patient will be referred to Podiatry (3) Hyperlipidemia: Comment: Intolerant to pravastatin, myalgia Code(s): E78.5 - Hyperlipidemia, unspecified Category: Medical Plan: Continue rosuvastatin (4) Endometrial adenocarcinoma: Comment: stage 1A , 08/11 s/p MADDISON/BSO f/u with [facility] Oncology Code(s): C54.1 - Malignant neoplasm of endometrium Category: Medical Plan: Follow-up with [facility] Oncology (5) IBS (irritable bowel syndrome): Code(s): K58.9 - Irritable bowel syndrome, unspecified Category: Medical Plan: Increasing fiber intake and dicyclomine is prescribed, follow-up in 2 months Orders: Orders PFT pulmonary function test Today J45.909 - Unspecified asthma, uncomplicated Comprehensive [place]. Panel Fast 2 Months E55.9 - Vitamin D deficiency, unspecified, E78.5 - Hyperlipidemia, unspecified Lipid Panel 2 Months E55.9 - Vitamin D deficiency, unspecified, E78.5 - Hyperlipidemia, unspecified Complete Blood Count Auto Diff 2 Months E55.9 - Vitamin D deficiency, unspecified, E78.5 - Hyperlipidemia, unspecified Vitamin D 25-OH Total 2 Months E55.9 - Vitamin D deficiency, unspecified, E78.5 - Hyperlipidemia, unspecified Referrals Podiatry Referral M79.671 - Pain in right foot, M79.672 - Pain in left foot Medications: New dicyclomine 10 mg PO TID 90 caps 2RF Refilled Advair Diskus 100-50 mcg/dose (fluticasone propion-salmeterol) 1 inh inhalation BID 60 ea 3RF NS albuterol sulfate 90 mcg/actuation 2 puffs inhalation Q6H PRN 8.5 grams 4RF shortness of breath or wheezing
== END 2025-03-24 12:42 | disposition home or self-care (01) ==
LOC: HO.HMCC 09:28
PROVIDERS: PCP Internal Medicine; Visit Provider Internal Medicine
DX: J45.909 Unspecified asthma, uncomplicated (principal); C54.1 Malignant neoplasm of endometrium; M79.671 Pain in right foot; M79.672 Pain in left foot; E78.5 Hyperlipidemia, unspecified; K58.9 Irritable bowel syndrome, unspecified

== ENCOUNTER → 2025-03-24 09:28 | Outpatient (BNVA) | payer BC, SELFPAY | PROVIDERS: PCP Internal Medicine; Visit Provider Internal Medicine ==

== ENCOUNTER 2025-06-25 09:51 | Outpatient (AMB) | payer BC, SELFPAY ==
[2025-06-25 10:03] VITALS: BP 126/78; PULSE 84; RESP 18; TEMP 36.8; O2SAT 98; BMI 32.0
--- NOTE | 2025-06-25 10:03 | MHC.PC.OV ---
Vital Signs 06/25/25 10:03 Height 5 ft Weight 164 lb BMI 32.0 BP 126/78 Blood Pressure Location Lt brachial Position Sitting Respiration 18 Pulse 84 Pulse Source Pulse Oximeter Temp 98.2 F Temp Source Oral Pulse Oximetry (%) 98 Oxygen Delivery Method Room Air Intake Visit Reasons: Follow up Intake Note: Pt is here today for a sick visit. Pt c/o R abdominal pain. Allergies pravastatin Adverse Reaction (Intermediate, Verified 06/25/25 10:19) myalgia Medication List - Last Reconciled 06/25/25 by Ursula Squires MD Advair Diskus 100-50 mcg/dose (fluticasone propion-salmeterol) 1 inh inhalation BID NS albuterol sulfate 90 mcg/actuation 2 puffs inhalation Q6H PRN cholecalciferol (vitamin D3) 50 mcg PO DAILY stephan.stocking,knee,reg,smal As directed dicyclomine 10 mg PO TID meclizine 25 mg PO BID PRN omeprazole 20 mg PO DAILY rosuvastatin (Crestor) 5 mg PO DAILY Tobacco use date assessed: 06/25/25 Fall risk assessment: No Falls in past year Last assessed Fall Risk: 06/25/25 Dental Screening Dental Screen Date: 06/25/25 Did you have a dental visit in the last 12 months?: Yes Did you have a dental problem in the last 6 months where you did not have access to dental care?: No Was dental information given to patient?: Patient has dentist HPI Follow up HPI Details Patient presents for the follow-up on hyperlipidemia controlled on Crestor. She complains of right upper quadrant epigastric discomfort worse after eating on and off for 1 week with some nausea but not vomiting. Patient denies change in bowel habits hematochezia melena dysuria hematuria fever or chills PFSH Medical History Shoulder pain, right Normal pelvic exam Normal breast exam GERD (gastroesophageal reflux disease) Annual physical exam Cough Abdominal pain Surgical History Hx of colonoscopy Family History Father No problems noted. Mother No problems noted. 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 Alvarez Alvarez, Zoraida Rodgers, Daniel Hollingsworth and colleagues, with an educational cielo from [employer]. Review of Systems Const All systems reviewed & are unremarkable except as noted in HPI and below ENT Reports no additional complaints Card Reports no additional complaints Resp Reports no additional complaints GI Reports no additional complaints Reports no additional complaints Physical exam (Primary Care) Vital Signs: Last Vital Signs Temp 98.2 F 06/25/25 10:03 Pulse 84 06/25/25 10:03 Resp 18 06/25/25 10:03 BP 126/78 06/25/25 10:03 Pulse Ox 98 06/25/25 10:03 Oxygen Delivery Method Room Air 06/25/25 10:03 BMI result Body Mass Index 32.0 Tobacco/Smoking Status: Tobacco use Status Tobacco use date assessed 06/25/25 06/25/25 10:18 Patient Tobacco Use Status Former Tobacco user 06/25/25 10:18 e-Cigarette/Vaping Use Never Used 06/25/25 10:04 Thrive Assessment: Date of Thrive Assessment Date Thrive assessed 01/13/25 06/25/25 10:04 Const General: no acute distress HENMT Head: Yes normal to inspection Eyes General: appearance normal, both eyes and all related structures Resp Effort & Inspection: normal respiratory effort Auscultation: clear to auscultation bilaterally Cardio Rhythm: regular rhythm Heart sounds: S1 normal heart sound present and S2 normal heart sound present GI Other: Epigastric and right upper quadrant tenderness, no rebound or guarding Inspection: Yes normal to inspection Palpation (GI): Soft to palpation Percussion: Yes normal to percussion Auscultation: normal bowel sounds Coding Level of Care Code Est Pt Level 3 (08166) Diagnoses RUQ abdominal pain R10.11 Hyperlipidemia E78.5 Assessment & Plan Assessment & Plan (1) RUQ abdominal pain: Code(s): R10.11 - Right upper quadrant pain Category: Medical Plan: Check blood work urinalysis and obtain abdominal ultrasound to evaluate for gallstones, (2) Hyperlipidemia: Comment: Intolerant to pravastatin, myalgia Code(s): E78.5 - Hyperlipidemia, unspecified Category: Medical Plan: Continue rosuvastatin Orders: Orders US abdomen limited Today R10.11 - Right upper quadrant pain Complete Blood Count Auto Diff Today R10.9 - Unspecified abdominal pain Lipase Today R10.9 - Unspecified abdominal pain UA w Microscopic Today R10.9 - Unspecified abdominal pain Urine Culture Today R10.9 - Unspecified abdominal pain Comprehensive Met. Panel Today R10.9 - Unspecified abdominal pain
== END 2025-06-25 11:18 | disposition home or self-care (01) ==
LOC: HO.HMCC 09:51
PROVIDERS: PCP Internal Medicine; Visit Provider Internal Medicine
DX: R10.11 Right upper quadrant pain (principal); E78.5 Hyperlipidemia, unspecified

== ENCOUNTER 2025-06-25 11:06 | Outpatient (REF) | payer BC, SELFPAY ==
--- NOTE | ~2025-06-25 | US_ITS ---
EXAMINATION: US ABDOMEN LIMITED HISTORY: R10.11 - Right upper quadrant pain TECHNIQUE: Real-time grayscale ultrasound imaging of the right upper quadrant was performed and images were reviewed. COMPARISON: Comparison is made with the prior examination dated 05/10/2022. FINDINGS: Liver: The liver is normal in size. The liver demonstrates increased echotexture, consistent with steatosis. No focal mass or intrahepatic biliary ductal dilatation is identified. There is normal hepatopedal flow in the portal vein. Gallbladder and biliary tree: The gallbladder is unremarkable, without evidence of calculi, wall thickening, or pericholecystic fluid. There is no sonographic Devries sign. The common bile duct is normal in caliber measuring 5 mm. Right Kidney: The right kidney measures 11.1 cm in length. The right kidney is unremarkable, without evidence of masses, hydronephrosis, or calculi. Pancreas: The pancreatic head, neck, and body are unremarkable. The pancreatic tail is obscured by bowel gas. Abdominal aorta and inferior vena cava: The visualized portions of the abdominal aorta and inferior vena cava are normal in caliber. There is no free fluid in the right upper quadrant. US/US abdomen limited IMPRESSION: Hepatic steatosis. Otherwise unremarkable right upper quadrant ultrasound. Electronically signed by: Alvarez Wiggins MD 06/25/2025 11:44 AM EDT
--- OUTSIDE RECORDS SUMMARY | 2025-06-25 11:56 | XMS_ITS | Encounter Summary ---
Author Organization [facility] Address [facility] [place] [address] Care Team Providers Care Supreme Court Judge Name Role Phone Sydnee Soto DO Primary Care Pro vider Unavailable Sydnee Soto DO Primary Care Pro vider Unavailable Sydnee Soto DO Unavailable Unavailable [facility], Pcp Primary Care Provider Unavailabl e Reason for Visit * Reason Onset Date Comments refill request 10/25/2019 Encounter Details Date Type Department Care Team Description 10/25/2019 Telephone Adult Medicine [address] [address] Sydnee Soto DO refill request Social History Tobacco Use Types Packs/Day Years Used Date Smoking Tobacco: Former Smokeless Tobacco: Former Alcohol Use Standard Drinks/Week Comments No 0 (1 standard drink = 0.6 oz pur e alcohol) Sex Assigned at Date Recorded Not on file documented as of this encounter Miscellaneous Notes * Telephone Encounter - Katty Lo - 10/25/2019 1:56 PM EST Patient would like script to be: E-PRESCRIBED/FAXED TO PHARMACY WHEN WAS THE PATIENT'S LAST APPOINTMENT IN ADULT MEDICINE? 09/30/19 WHEN WAS THE LAST TIME THE PATIENT SAW THEIR PCP? Same as above Does patient have an upcoming appointment? Yes 12/02/19 (THE MEDICATION REQUESTED IS ON THE MED LIST ABOVE) All of the medications requested were on the CURRENT MEDS list Did you check the Pharmacy information above?: YES Patient wants: 90 -day supply Is this a mail order prescription request ? NO If the refill is from a FAXED refill request what is the RX # listed on the fax? N/A Patients current insurance carrier is: Payor: [employer] / Plan: PPO $10 [place] [id number] / ProductType: PPO [id number] documented in this encounter Plan of Treatment Not on file documented as of this encounter Visit Diagnoses Not on filedocumented in this encounter Care Teams Supreme [address] Judge Relationship Specialty Start Date End Date Sydnee Soto DO PCP - General Internal Medicine 05/08/14 10/23/20 Sydnee Soto DO PCP - General 10/24/20 10/05/22 [facility], Pcp PCP - General Internal Medicine 10/06/22 Sydnee Soto DO Internal Medicine 10/24/20 documented as of this encounter
== END 2025-06-25 11:07 | disposition home or self-care (01) ==
LOC: HO.HMGCX 11:06
PROVIDERS: PCP Internal Medicine; Visit Provider Internal Medicine
DX: R10.11 Right upper quadrant pain (principal); E78.5 Hyperlipidemia, unspecified
CPT/HCPCS: 76705

== ENCOUNTER → 2025-06-25 11:13 | Outpatient (BNV) | payer BC, SELFPAY | PROVIDERS: PCP Internal Medicine; Visit Provider Radiology Diagnostic Radiology | DX: K76.0 Fatty (change of) liver, not elsewhere classified (principal) | CPT/HCPCS: 76705 ==

== ENCOUNTER 2025-06-26 09:45 | Outpatient (REF) | payer BC, SELFPAY ==
[2025-06-26 13:11] LABS: Appearance Urine Turbid; Glucose Urine UA Negative (Negative); PH 5.5 (5.0-9.0); Specific Gravity - Urine 1.025 (1.005-1.025)
[2025-06-26 13:20] LABS: MANUAL DIFF FLAG NO
[2025-06-26 13:31] LABS: Hematocrit 41.6 % (37.0-47.0); Hemoglobin 13.8 g/dl (12.0-16.0); Imm Gran Abs Auto 0.02 X10*3/uL (0.00-0.03); Imm Gran Pct Auto 0.3 % (0.0-0.4); Lymphocytes Absolute Auto 2.8 X10*3/uL (1.2-4.9); Mean Corpuscular HGB Conc 33.2 g/dl (31.0-35.0); Mean Corpuscular Hemoglobin 29.8 pg (27.0-33.0); Mean Corpuscular Volume 89.8 fL (80.0-98.0); NRBC Abs Auto 0.000 X10*3/uL (0.0-0.012); NRBC Pct Auto 0.0 /100WBC (0.0-0.2); Platelet Count 248 X10*3/uL (160-400); Red Blood Count 4.63 X10*6/uL (4.20-5.50); White Blood Count 8.0 X10*3/uL (4.8-10.8)
[2025-06-26 14:02] LABS: Alanine Aminotransferase 19 U/L (0-31); Albumin Level 4.4 g/dL (3.5-5.0); Alkaline Phosphatase 68 U/L (39-117); Anion Gap 10 (12-20); Aspartate Amino Transferase 27 U/L (5-31); Blood Urea Nitrogen 15 mg/dL (9-16); Calcium 8.9 mg/dL (8.4-10.2); Carbon Dioxide 27 mmol/L (22-29); Chloride 108 mmol/L (96-108); Cholesterol 200 mg/dL (<200); Estimated Glomerular Filt Rate > 60; HDL Cholesterol 53 mg/dL (>40); Lipase 15 U/L (8-78); Potassium 4.0 mmol/L (3.3-5.1); Sodium 141 mmol/L (135-145); Total Protein 7.1 g/dL (6.5-8.0); Triglycerides 120 mg/dL (<150)
== END 2025-06-26 09:46 | disposition home or self-care (01) ==
LOC: HO.HMGCLDS 09:45
PROVIDERS: PCP Internal Medicine; Visit Provider Internal Medicine
DX: E78.5 Hyperlipidemia, unspecified (principal); E55.9 Vitamin D deficiency, unspecified; R10.9 Unspecified abdominal pain
CPT/HCPCS: 36415; 80053; 80061; 81001; 82306; 83690; 85025; 87086

== ENCOUNTER 2025-07-24 08:07 | Outpatient (AMB) | payer BC, SELFPAY ==
[2025-07-24 08:13] VITALS: BP 124/78; PULSE 76; RESP 18; TEMP 36.8; O2SAT 97; BMI 32.2
--- NOTE | 2025-07-24 08:13 | MHC.PC.OV ---
Vital Signs 07/24/25 08:13 Height 5 ft Weight 165 lb BMI 32.2 BP 124/78 Blood Pressure Location Lt brachial Position Sitting Respiration 18 Pulse 76 Pulse Source Pulse Oximeter Temp 98.3 F Temp Source Oral Pulse Oximetry (%) 97 Oxygen Delivery Method Room Air Intake Visit Reasons: Hospital follow up ok per Dr. Squires Intake Note: Pt is here today for hospital follow up visit. Allergies pravastatin Adverse Reaction (Intermediate, Verified 07/24/25 08:14) myalgia Medication List - Last Reconciled 07/24/25 by Ursula Squires MD Advair Diskus 100-50 mcg/dose (fluticasone propion-salmeterol) 1 inh inhalation BID NS albuterol sulfate 90 mcg/actuation 2 puffs inhalation Q6H PRN apixaban (Eliquis) 5 mg PO BID cholecalciferol (vitamin D3) 50 mcg PO DAILY [email or web address],knee,reg,smal As directed dicyclomine 10 mg PO TID diltiazem HCl CD 120 mg PO DAILY meclizine 25 mg PO BID PRN omeprazole 20 mg PO DAILY rosuvastatin (Crestor) 5 mg PO DAILY Tobacco use date assessed: 07/24/25 Fall risk assessment: No Falls in past year Last assessed Fall Risk: 07/24/25 Dental Screening Dental Screen Date: 06/25/25 [facility] Hospital follow up ok per Dr. Squires HPI Details Pt presents for follow-up of hospitalization at [facility]. While going [place] patient developed motion sickness symptoms which triggered new onset AFib. Patient was admitted to the hospital started on Cardizem drip and Eliquis. Patient was treated for right upper quadrant infiltrate on the chest x-ray without any symptoms of upper respiratory infection. Patient completed course of Augmentin for 7 days. Patient complains of feeling generally tired but denies palpitation chest pain shortness or breath cough pleurisy nausea vomiting. She has scheduled an appointment with a cloth colorer at [facility] in September. FORMERLY [facility], [facility]1983 Medical History (Updated 07/24/25 @ 10:08 by Ursula Squires MD) A-fib Shoulder pain, right Normal pelvic exam Normal breast exam GERD (gastroesophageal reflux disease) Annual physical exam Cough Abdominal pain Surgical History Hx of colonoscopy Family History Father No problems noted. Mother No problems noted. 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 Alvarez Alvarez, Zoraida Rodgers, Daniel Hollingsworth and colleagues, with an educational cielo from [employer]. Review of Systems Const All systems reviewed & are unremarkable except as noted in HPI and below Eyes Reports no additional complaints ENT Reports no additional complaints Card Reports no additional complaints Resp Reports no additional complaints GI Reports no additional complaints Reports no additional complaints Physical exam (Primary Care) Vital Signs: Last Vital Signs Temp 98.3 F 07/24/25 08:13 Pulse 76 07/24/25 08:13 Resp 18 07/24/25 08:13 BP 124/78 07/24/25 08:13 Pulse Ox 97 07/24/25 08:13 Oxygen Delivery Method Room Air 07/24/25 08:13 BMI result Body Mass Index 32.2 Tobacco/Smoking Status: Tobacco use Status Tobacco use date assessed 07/24/25 07/24/25 08:21 Patient Tobacco Use Status Former Tobacco user 07/24/25 08:21 e-Cigarette/Vaping Use Never Used 07/24/25 08:21 Thrive Assessment: Date of Thrive Assessment Date Thrive assessed 01/13/25 07/24/25 08:21 Const General: no acute distress HENMT Face and sinus: Yes normal facial exam Neck Neck: Yes no lymphadenopathy and Yes supple Resp Effort & Inspection: normal respiratory effort Auscultation: clear to auscultation bilaterally Cardio Rhythm: regular rhythm Heart sounds: S1 normal heart sound present and S2 normal heart sound present GI Inspection: Yes normal to inspection Palpation (GI): Soft to palpation Percussion: Yes normal to percussion Coding Level of Care Code Est Pt Level 4 (17272) Diagnoses A-fib I48.91 Cough R05 Asthma J45.909 Hyperlipidemia E78.5 Assessment & Plan Assessment & Plan (1) A-fib: Comment: New onset AFib triggered by motion sickness, hospitalized in [place] 07/13/25, STARTED ON DILTIAZEM AND ELIQUIS Code(s): I48.91 - Unspecified atrial fibrillation Category: Medical Plan: Continue Cardizem and Eliquis check 7 day Holter, patient will follow-up with Cardiology at [facility] in September. (2) Cough: Code(s): R05 - Cough Category: Medical Plan: Repeat chest x-ray after treatment with Augmentin (3) Asthma: Comment: Negative chest x-ray 03/12 Code(s): J45.909 - Unspecified asthma, uncomplicated Category: Medical Plan: Continue Advair (4) Hyperlipidemia: Comment: Intolerant to pravastatin, myalgia Code(s): E78.5 - Hyperlipidemia, unspecified Category: Medical Plan: Restart crestor Orders: Orders ECG 7 day holter monitor Today I48.91 - Unspecified atrial fibrillation Medications: New diltiazem HCl CD 120 mg PO DAILY 90 caps 0RF Eliquis (apixaban) 5 mg PO BID 180 tabs 0RF NS ondansetron 4 mg PO Q8H 20 tabs 0RF
--- OUTSIDE RECORDS SUMMARY | 2025-07-24 08:23 | XMS_ITS | Clinical Summary ---
Author Organization [address] Address [address] [place] [phone] Phone Care Team [facility]iders [facility] Name Role Phone Ursula Squiers MD Primary Care Provider [phone] Medications omeprazole (PRILOSEC) 20 mg capsule Take 1 capsule (20 mg total) by mouth daily as needed. 5 Active rosuvastatin (CRESTOR) 5 mg tablet Take 1 tablet (5 mg total) by mouth daily. 5 Active cholecalciferol, vitamin D3, 25 mcg (1,000 unit) tablet Take 1 tablet (1,000 Units total) by mouth daily. Active apixaban (ELIQUIS) 5 mg tablet Take 1 tablet (5 mg total) by mouth every 12 (twelve) hours. 60 tablet 5 08/12/20 25 Active dilTIAZem CD (CARDIZEM CD) 120 mg 24 hr capsule Take 1 capsule (120 mg total) by mouth daily. 30 capsule 5 08/13/20 25 Active amoxicillin-clav ulanate (AUGMENTIN) 875-125 mg per tabletIndication s:Atrial fibrillation, unspecified type (HC Code) Take 1 tablet by mouth every 12 (twelve) hours for 7 doses. 7 tablet 5 07/17/20 25 Active Problems Problem Noted Date Diagnosed Date A-fib (HC Code) 07/13/2025 Leukocytosis 07/12/2025 Hyperglycemia 07/12/2025 New onset atrial fibrillation (HC Code) 07/11/20 Encounters Date Type Department Care Team Description 07/14/2025 Patient Outreach [facility] Call Center [address] [place] [address] [facility] Discharge Follow Up 07/11/2025 12:34 PM EDT - 07/13/2025 1:32 PM EDT Hospital Encounter LM 3.4 ICU [address] [facility] [address] [phone] Yeni Thakkar MD Wilson, Mina Gamal Nasr, MD Astras, Nicolas J, DO New onset atrial fibrillation (HC Code) (Primary Dx); Nausea and vomiting, unspecified vomiting type; Atrial fibrillation, unspecified type (HC Code) Discharge Disposition: Home or Self Care 07/11/2025 Travel from Last 3 Months Social History Tobacco Use Types Packs/Day Years Used Date Smoking Tobacco: Never Assessed [facility] Utilities Answer Date Recorded In the past 12 months has [employer] electric, gas, oil, or water company threatened to shut off services in your home? No 07/11/2025 Hunger Vital Sign Answer Date Recorded Within the past 12 months, y ou worried that your food would run out before you got the money to buy more. Never true 07/11/20 25 Within the past 12 months, t he food you bought just didn't last and you didn't have money to get more. Never true 07/11/2025 PRAPARE - Transportation Answer Date Re corded In the past 12 months, has l ack of transportation kept you from medical appointments or from getting medications? No 06/21 In the past 12 months, has l ack of transportation kept you from meetings, work, or from getting things needed for daily living? No 07/11/2025 Housing Stability Answer Date Recorded What is your living situation today? I have a st los place to live 07/11/2025 Housing Stability Not on file 07/11/2025 Interpersonal Safety Answer Date Record ed Is there anyone in your life that is hurting or threatening you in anyway? Not on file 07/11/2025 Physical Indicators of Abuse No evidence of phys ical abuse 07/11/2025 Comments Unknown Sex and Gender Information Value Date Recorded Sex Assigned at Not on file Legal Sex Female 12:22 PM EDT Gender Identity Not on file Sexual Orientation Not on file Last Filed Vital Signs Vital Sign Reading Time Taken Comments Blood Pressure 147/83 07/13/2025 12:19 PM EDT Pulse 66 07/13/2025 12:00 PM EDT Temperature 36.9 C (98.4 F) 07/13/2025 8:15 AM EDT Respiratory Rate 24 07/13/2025 12:1 9 PM EDT Oxygen Saturation 99% 07/13/2025 12: 19 PM EDT Inhaled Oxygen Concentration - - Weight 81.5 kg (179 lb 10.8 oz) 07/12/2025 9:49 AM EDT Height 157.5 cm (5' 2 ) 07/11/2025 1:25 PM EDT Body Mass Index 32.86 07/11/2025 1:25 PM EDT Plan of Treatment Health Maintenance Due Date Last Done Comments HIV screening 1972 Hepatitis C screening 1977 Tetanus adult (Td q 10,TDAP once) 1979 Breast cancer screening 1999 Lipid disorder screening 1999 Colon cancer screening, Colonoscopy 2004 Shingles vaccine (Shingrix) (1 of 2 - Shingrix (RZV) 2 Dose Standard Series) 2009 Osteoporosis screening (bone density) 2024 Pneumococcal Vaccine (50+ years) (3 of 3 - PCV20 or PCV21) 09/30/2024 09/30/2019, 08/16/2017 Covid-19 vaccine series ( - season) 2025 Influenza vaccine 07/21/2025 Prediabetes Surveillance 07/12/2026 07/12/2025 Diabetes screening 07/13/2028 07/13/2025, 0 07/12/2025, 07/11/2025, Additional history exists RSV Immunization (1 - 1-dose 75+ series) 2034 Cervical cancer screening Discontinued Meningococcal B Vaccine Aged Out No l onger eligible based on patient's age to complete this topic Meningococcal Vaccine Aged Out No harvey tika eligible based on patient's age to complete this topic Procedures Procedure Name Priority Date/Time Associated Diagnosis Comments COMPREHENSIVE METABOLIC PANEL Early AM 07/13/2025 5:13 AM EDT CBC AND DIFFERENTIAL Early AM 07/13/2025 5:13 AM EDT COMPREHENSIVE METABOLIC PANEL Early AM 07/13/2025 5:13 AM EDT CBC WITH AUTO DIFFERENTIAL Early AM 07/13/2025 5:13 AM EDT PHOSPHORUS (BH GH L LMW YH) Early AM 07/13/2025 5:13 AM EDT MAGNESIUM Early AM 07/13/2025 5:13 AM EDT TRANSTHORACIC ECHO (TTE) COMPLETE W COLOR, DOPPLER AND CONTRAST Routine 07/12/2025 2:26 PM EDT EKG Routine 07/12/2025 2:14 PM EDT CBC AND DIFFERENTIAL Early AM 07/12/2025 5:20 AM EDT HEMOGLOBIN A1C Routine 07/12/2025 5:20 AM EDT CBC WITH AUTO DIFFERENTIAL Early AM 07/12/2025 5:20 AM EDT TSH Early AM 07/12/2025 5:20 AM EDT PHOSPHORUS (BH GH L LMW YH) Early AM 07/12/2025 5:20 AM EDT MAGNESIUM Early AM 07/12/2025 5:20 AM EDT PROTIME AND INR Early AM 07/12/2025 5:20 AM EDT CARDIAC MISC. RESULT SCAN 07/12/2025 12:00 AM EDT CBC AND DIFFERENTIAL Routine 07/11/2025 10:23 PM EDT BASIC METABOLIC PANEL Routine 07/11/2025 10:23 PM EDT CBC WITH AUTO DIFFERENTIAL Routine 07/11/2025 10:23 PM EDT BASIC METABOLIC PANEL Routine 07/11/2025 10:23 PM EDT TROPONIN T HIGH SENSITIVITY, NO REFLEX ( GH LMW YH) STAT 07/11/2025 10:23 PM EDT MAGNESIUM Routine 07/11/2025 10:23 PM EDT REFLEX LACTIC ACID, PLASMA STAT 07/11/2025 5:[address] ED CHEST ABDOMEN PELVIS W IV CONTRAST Within 2 hours (STAT) 07/11/2025 5:14 PM EDT URINE MICROSCOPIC ([facility] LMW YH) Routine 07/11/2025 3:07 PM EDT URINALYSIS WITH CULTURE REFLEX ( LMW YH) STAT 07/11/2025 3:07 PM EDT UA REFLEX CULTURE STAT 07/11/2025 3:0 7 PM EDT URINALYSIS WITH CULTURE REFLEX STAT 07/11/2025 3:07 PM EDT SARS-COV-2 (COVID-19)/INFLUENZA A+B/RSV BY RT-PCR ([facility] LMW YH) Routine 07/11/2025 3:07 PM EDT PROCALCITONIN ([facility] LMW Q YH) Routine 07/11/2025 2:31 PM EDT LACTIC ACID, PLASMA (REFLEX 2H REPEAT) STAT 07/11/2025 2:31 PM EDT TROPONIN T HIGH SENSITIVITY, 1 HOUR WITH REFLEX ([facility] LMW YH) STAT - Timed 07/11/2025 2:31 PM EDT BLOOD CULTURE STAT 07/11/2025 2:31 PM EDT BLOOD CULTURE STAT 07/11/2025 2:31 PM EDT BLOOD CULTURE - NEW CONCERN (2 BOTTLES) (BH GH L LMW YH) STAT 07/11/2025 2:31 PM EDT BLOOD CULTURE - NEW CONCERN (2 BOTTLES) (BH GH L LMW YH) STAT 07/11/2025 2:31 PM EDT XR CHEST PA OR AP Within 1 hour (STAT) 07/11/2025 12:53 PM EDT COMPREHENSIVE METABOLIC PANEL STAT 07/11/2025 12:47 PM EDT CBC AND DIFFERENTIAL Routine 07/11/2025 12:47 PM EDT COMPREHENSIVE METABOLIC PANEL STAT 07/11/2025 12:47 PM EDT CBC WITH AUTO DIFFERENTIAL Routine 07/11/2025 12:47 PM EDT TSH W/REFLEX TO FT4 ( GH LMW Q YH) STAT 07/11/2025 12:47 PM EDT MAGNESIUM STAT 07/11/2025 12:47 PM EDT D-DIMER, QUANTITATIVE STAT 07/11/2025 12:47 PM EDT TROPONIN T HIGH SENSITIVITY, 0 HOUR BASELINE WITH REFLEX (BH GH LMW YH) STAT 07/11/2025 12:47 PM EDT EKG STAT 07/11/2025 12:40 PM EDT from Last 3 Months Results * (ABNORMAL) Comprehensive metabolic panel (07/13/2025 5:13 AM EDT) Only the most recent of2 resultswithin the time period is included. Sodium 142 136 - 145 mmol/L 07/13/2025 6:27 AM [facility] Comment:Test repeated and re sults verified. Potassium 3.9 3.5 - 5.1 mmol/L 07/13/2025 6:27 AM [facility] Comment:Test repeated and re sults verified. Chloride 112(H) 98 - 107 mmol/L 07/13/2025 6:27 AM [facility] Comment:Test repeated and re sults verified. CO2 25 21 - 32 mmol/L 07/13/2025 6:27 AM [facility] Comment:Test repeated and re sults verified. Anion Gap 5 5 - 15 mmol/L 07/13/2025 6:27 AM [facility] Glucose 101 65 - 110 mg/dL 07/13/2025 6:27 AM [facility] Comment: Non-fastin-110 mg/dL Fasting (minimum 6 hrs): 65-99 mg/dL BUN 18 7 - 18 mg/dL 07/13/2025 6:27 AM [facility] Creatinine 0.73 0.55 - 1.02 mg/dL 07/13/2025 6:27 AM [facility] Calcium 8.8 8.5 - 10.1 mg/dL 07/13/2025 6:27 AM [facility] Total Protein 6.1(L) 6.4 - 8.2 g/dL 07/13/2025 6:27 [facility] Albumin 3.3(L) 3.4 - 5.0 g/dL 07/13/2025 6:27 AM [facility] Globulin 2.8 2.5 - 5.0 g/dL 07/13/2025 6:27 AM [facility] Total Bilirubin 0.4 <1.0 mg/dL 6:27 AM [facility] Comment:Use of this assay is not recommended for patients undergoing treatment with Eltrombopag due to the potential for falsely elevated results. Alkaline Phosphatase 68 45 - 117 U/L 07/13/2025 6:27 [facility] Alanine Aminotransferase (ALT) 23 13 - 56 U/L 07/13/2025 6:27 AM EDT [facility] Aspartate Aminotransferase (AST) 15 15 - 37 U/L 07/13/2025 6:27 AM T [facility] eGFR (Creatinine) >60 >=60 mL/min/1.73 m2 07/13/2025 6:27 AM T [facility] Comment: [facility] utilizes CKD-EPI Creatinine 2020 to report eGFR. Values < 60 mL/min/1.73 m2 may indicate CKD if present for more than three months AND creatinine is at steady state. The eGFR provides a rough estimate of kidney function. For further guidance, please refer to the CKD: Adult [employer] Signature pathway. Creatinine Delta -0.03 See Comment 6:27 AM [facility] Comment: Delta creatinine is the difference between the current creatinine and the most recent prior creatinine (if available within the previous 12 months). It is intended to detect significant changes in kidney function for patients whose creatinine is <5 mg/dL. A delta is not calculated for patients whose baseline creatinine is >=5 mg/dL or those who do not have a baseline within the last year. The following deltas will flag as critical (triggering a call from the laboratory): a) Deltas >= +1.5 mg/dL for patients with baseline creatinine <= 1.5 mg/dL. b) Deltas >= +3 mg/dL for patients with baseline creatinine between 1.5 and 5 mg/dL. Blood Venipuncture / Unknown 07/13/2025 5:13 AM EDT 07/13/2025 5:35 AM EDT us Zafar Hinojosa DO LAB BLOOD ORDERABLES Final R esult [facility] [address] [place] [address] * (ABNORMAL) CBC auto differential (07/13/2025 5:13 AM EDT) Only the most recent of4 resultswithin the time period is included. [facility] Signature WBC 9.0 4.0 - 11.0 x1000/ L 07/13/2025 5:49 AM EDT [facility] RBC 4.36 4.00 - 6.00 M/ L 07/13/2025 5:49 AM EDT [facility] Hemoglobin 12.9 11.7 - 15.5 g/dL 07/13/2025 5:49 AM EDT [facility] Hematocrit 40.30 35.00 - 45.00 % 07/13/2025 5:49 AM EDT [facility] MCV 92.4 80.0 - 100.0 fL 07/13/2025 5:49 AM EDT [facility] MCH 29.6 27.0 - 33.0 pg 07/13/2025 5:49 AM EDT [facility] MCHC 32.0 31.0 - 36.0 g/dL 07/13/2025 5:49 AM EDT [facility] RDW-CV 13.0 11.0 - 15.0 % 07/13/2025 5:49 AM EDT [facility] Platelets 248 150 - 420 x1000/ L 07/13/2025 5:49 AM EDT [facility] MPV 10.3 8.0 - 12.0 fL 07/13/2025 5:49 AM EDT [facility] Neutrophils 51.6 39.0 - 72.0 % 07/13/2025 5:49 AM EDT [facility] Lymphocytes 32.0 17.0 - 50.0 % 07/13/2025 5:49 AM EDT [facility] Monocytes 11.5 4.0 - 12.0 % 07/13/2025 5:49 AM EDT [facility] Eosinophils 3.9 0.0 - 5.0 % 07/13/2025 5:49 AM EDT [facility] Basophil 0.8 0.0 - 1.4 % 07/13/2025 5:49 AM EDT [facility] Immature Granulocytes 0.2 0.0 - 1.0 % 07/13/2025 5:49 AM EDT [facility] nRBC 0.0 0.0 - 1.0 % 07/13/2025 5:49 AM EDT [facility] Absolute Lymphocyte Count 2.88 0.60 - 3.70 x 1000/ L 07/13/2025 5:49 AM EDT [facility] Monocyte Absolute Count 1.03(H) 0.00 - 1.00 x 1000/ L 07/13/2025 5:49 AM EDT [facility] Eosinophil Absolute Count 0.35 0.00 - 1.00 x 1000/ L 07/13/2025 5:49 AM EDT [facility] Basophil Absolute Count 0.07 0.00 - 1.00 x 1000/ L 07/13/2025 5:49 AM EDT [facility] Absolute Immature Granulocyte Count 0.02 0.00 - 0.30 x 1000/ L 07/13/2025 5:49 AM EDT [facility] Absolute nRBC 0.00 0.00 - 1.00 x 1000/ L 07/13/2025 5:49 AM EDT [facility] ANC (Abs Neutrophil Count) 4.64 2.00 - 7.60 x 1000/ L 07/13/2025 5:49 AM EDT [facility] Blood Venipuncture / Unknown 07/13/2025 5:13 AM EDT 07/13/2025 5:42 AM EDT Zafar Vega [employer] LAB BLOOD ORDERABLES Final R esult Performing Organization Address [facility] de Phone Number [facility] [address] [place] [phone] * Phosphorus (BH GH L LMW YH) (07/13/2025 5:13 AM EDT) Only the most recent of2 resultswithin the time period is included. Phosphorus 2.9 2.5 - 4.9 mg/dL 07/13/2025 6:23 AM EDT [facility] Blood Venipuncture / Unknown 07/13/2025 5:13 AM EDT 07/13/2025 5:35 AM EDT us Zafar Vega [employer] LAB BLOOD ORDERABLES Final R esult Performing Organization Address [facility]/ZIP Co de Phone Number [facility] [address] [place] [address] * Magnesium (07/13/2025 5:13 AM EDT) Only the most recent of4 resultswithin the time period is included. [facility] Magnesium 2.0 1.6 - 2.6 mg/dL 07/13/2025 6:23 AM EDT [facility] Blood Venipuncture / Unknown 07/13/2025 5:13 AM EDT 07/13/2025 5:35 AM EDT us Zafar Hinojosa DO LAB BLOOD ORDERABLES Final R esult [facility] [address] [place] [address] * TRANSTHORACIC ECHO (TTE) COMPLETE W COLOR, DOPPLER AND CONTRAST (07/12/2025 2:26 PM EDT) [facility] Reported Visual Range EF% 60-65 % [facility] Comment:UNSELECTED VALUES:EF Percent BiPlane (LUM4C test with value): 73 Anatomical Region Laterality Modality Chest Ultrasound 07/12/2025 10:1 0 AM EDT Narrative 07/15/2025 12:27 AM EDT * Normal left ventricular cavity size. Normal left ventricle wall thickness. No regional wall motion abnormalities. Normal left ventricular systolic function. LVEF estimated by visual assessment was between 60-65%. Diastolic function was difficult to determine due to atrial fibrillation. * Normal right ventricular cavity size and systolic function. Estimated right ventricular systolic pressure is 14 mmHg. * Atria are normal in size. * Mild tricuspid regurgitation. * All visible segments of the aorta are normal in size. * IVC diameter < 2.1 cm that collapses > 50% with a sniff suggests normal RAP (0-5 mmHg, mean 3 mmHg). * No significant pericardial effusion. * No prior study available for comparison. Findings: Procedure Information Quality of the study was fair. Study quality is limited by patient's body habitus. Patient received 5 ml of Definity enhancement agent per protocol without apparent complications. Atrial fibrillation noted at rest. Left Ventricle Normal left ventricular cavity size. Normal left ventricle wall thickness. No regional wall motion abnormalities. Normal left ventricular systolic function. LVEF estimated by visual assessment was between 60-65%. Diastolic function was difficult to determine due to atrial fibrillation. Wall Motion Rest Echo Findings All wall segments showed normal motion. Right Ventricle Normal right ventricular cavity size and systolic function. Estimated right ventricular systolic pressure is 14 mmHg. Atria Atria are normal in size. No interatrial shunt by color Doppler. Aortic Valve Trileaflet aortic valve. No aortic stenosis. No aortic regurgitation. Mitral Valve Normal mitral valve leaflets. No mitral stenosis. No mitral regurgitation. Tricuspid Valve Normal tricuspid valve leaflets. Mild tricuspid regurgitation. Pulmonic Valve Normal pulmonic valve. Trace pulmonic regurgitation. Great Vessels All visible segments of the aorta are normal in size. Venous IVC diameter < 2.1 cm that collapses > 50% with a sniff suggests normal RAP (0-5 mmHg, mean 3 mmHg). Pericardium/Pleural No significant pericardial effusion. Prior Study Comparison No prior study available for comparison. Procedure Note Khoa Mcclain MD - 07/15/2025 * Normal left ventricular cavity size. Normal left ventricle wallthickness. No regional wall motion abnormalities. Normal leftventricular systolic function. LVEF estimated by visual assessment wasbetween 60-65%. Diastolic function was difficult to determine due toatrial fibrillation. * Normal right ventricular cavity size and systolic function. Estimatedright ventricular systolic pressure is 14 mmHg. * Atria are normal in size. * Mild tricuspid regurgitation. * All visible segments of the aorta are normal in size. * IVC diameter < 2.1 cm that collapses > 50% with a sniff suggests normalRAP (0- 5 mmHg, mean 3 mmHg). * No significant pericardial effusion. * No prior study available for comparison. Findings: Procedure Information Quality of the study was fair. Study quality is limited by patient's bodyhabitus. Patient received 5 ml of Definity enhancement agent per protocolwithout apparent complications. Atrial fibrillation noted at rest. Left Ventricle Normal left ventricular cavity size. Normal left ventricle wallthickness. No regional wall motion abnormalities. Normal leftventricular systolic function. LVEF estimated by visual assessment wasbetween 60-65%. Diastolic function was difficult to determine due toatrial fibrillation. Wall Motion Rest Echo Findings All wall segments showed normal motion. Right Ventricle Normal right ventricular cavity size and systolic function. Estimatedright ventricular systolic pressure is 14 mmHg. Atria Atria are normal in size. No interatrial shunt by color Doppler. Aortic Valve Trileaflet aortic valve. No aortic stenosis. No aortic regurgitation. Mitral Valve Normal mitral valve leaflets. No mitral stenosis. No mitralregurgitation. Tricuspid Valve Normal tricuspid valve leaflets. Mild tricuspid regurgitation. Pulmonic Valve Normal pulmonic valve. Trace pulmonic regurgitation. Great Vessels All visible segments of the aorta are normal in size. Venous IVC diameter < 2.1 cm that collapses > 50% with a sniff suggests normalRAP (0-5 mmHg, mean 3 mmHg). Pericardium/Pleural No significant pericardial effusion. Prior Study Comparison No prior study available for comparison. Russ Denise MD CV ECHO ORDERABLES Final Result * EKG (07/12/2025 2:14 PM EDT) Only the most recent of2 resultswithin the time period is included. Heart Rate 50 bpm [facility] EKG QRS Interval 111 ms [facility] EKG QT Interval 458 ms [facility] EKG QTC Interval 418 ms [facility] EKG P [place] 48 deg [facility] EKG QRS [place] -17 deg LM EKG T Wave [place] 26 deg [facility] EKG P-R Interval 147 msec [facility] EKG SEVERITY Borderline ECG severity [facility] EKG Comment::Sinus rhythm:Border line left axis deviation:Low voltage, precordial leads:RSR' in V1 or V2, probably normal variant:When compared to prior tracing, sinus rhythm has replaced afib:Electronically Signed On 07-14-2025 2:38:00 EDT by KHOA MONTESINOS MD OTHER / Unknown 07/12/2025 2 :14 PM EDT Mary Anne Bennett MD ECG ORDERABLES Final Result [facility] EKG * Protime and INR (07/12/2025 5:20 AM EDT) Prothrombin Time 11.9 9.3 - 11.9 seconds 07/12/2025 5:52 AM EDT [facility] INR 1.16 0.89 - 1.18 07/12/2025 5:52 AM EDT [facility] Comment: RECOMMENDED INR THERAPEUTIC RANGES: STANDARD INTENSITY......2.0-3.0 HIGH INTENSITY..........2.5-3.5 Blood Venipuncture / Unknown 07/12/2025 5:20 AM EDT 07/12/2025 5:39 AM EDT Russ Denise MD LAB BLOOD ORDERABLES Final Resul t Performing Organization Address [facility] Phone Number [facility] [address] [place] [address] * TSH (07/12/2025 5:20 AM EDT) TSH 1.22 0.36 - 3.74 uIU/mL 07/12/2025 6:28 AM EDT [facility] Blood Venipuncture / Unknown 07/12/2025 5:20 AM EDT 07/12/2025 5:41 AM EDT Russ Denise MD LAB BLOOD ORDERABLES Final Resul t Performing Organization Address [facility] Number [facility] [address] [place] [address] * Hemoglobin A1c (07/12/2025 5:20 AM EDT) Hemoglobin A1c 5.9 4.2 - 6.3 % 07/12/2025 11:16 AM EDT [facility] Comment: >=6.5% Diabetes* 5.7-6.4% Pre-Diabetes *These results must be confirmed by repeat testing in the absence of unequivocal hypoglycemia. Diabetes Care 2015 38 [id number] NOTE: This A1c assay is accurate in HbC, HbS, HbE, or HbD. A1c results are not reliable in the presence of HbF or in patients with chronic blood loss. Any cause of shortened red blood cell survival (eg, hemolytic anemia, hemolysis, , recent significant blood loss) will reduce the exposure of red blood cells to glucose with a consequent decrease in A1c values. Blood Venipuncture / Unknown 07/12/2025 5:20 AM EDT 07/12/2025 5:39 AM EDT us Zafar Hinojosa DO LAB BLOOD ORDERABLES Final R esult [facility] [address] [place] [address] * Cardiac Misc.?? Result Scan (07/12/2025 12:00 AM EDT) us Provider Not In System CV CARDIAC REPORT (CVR) F inal Result * (ABNORMAL) Basic metabolic panel (07/11/2025 10:23 PM EDT) Glucose 180(H) 65 - 110 mg/dL 07/11/2025 11:15 PM EDT [facility] Comment: Non-fastin-110 mg/dL Fasting (minimum 6 hrs): 65-99 mg/dL BUN 9 7 - 18 mg/dL 07/11/2025 11:15 PM EDT [facility] Creatinine 0.76 0.55 - 1.02 mg/dL 07/11/2025 11:15 PM EDT [facility] Sodium 144 136 - 145 mmol/L 07/11/2025 11:15 PM EDT [facility] Potassium 3.6 3.5 - 5.1 mmol/L 07/11/2025 11:15 PM EDT [facility] Comment:Sample Slightly Hemo lyzed. Results may be falsely elevated due to hemolysis. Chloride 115(H) 98 - 107 mmol/L 07/11/2025 11:15 PM EDT [facility] CO2 24 21 - 32 mmol/L 07/11/2025 11:15 PM EDT [facility] Anion Gap 5 5 - 15 mmol/L 07/11/2025 11:15 PM EDT [facility] Calcium 8.8 8.5 - 10.1 mg/dL 07/11/2025 11:15 PM EDT [facility] eGFR (Creatinine) >60 >=60 mL/min/1.73 m2 07/11/2025 11:15 PM EDT [facility] Comment: [facility] utilizes CKD-EPI Creatinine 2020 to report eGFR. Values < 60 mL/min/1.73 m2 may indicate CKD if present for more than three months AND creatinine is at steady state. The eGFR provides a rough estimate of kidney function. For further guidance, please refer to the CKD: Adult [employer] Signature pathway. Creatinine Delta 0.02 See Comment 025 11:15 PM EDT [facility] Comment: Delta creatinine is the difference between the current creatinine and the most recent prior creatinine (if available within the previous 12 months). It is intended to detect significant changes in kidney function for patients whose creatinine is <5 mg/dL. A delta is not calculated for patients whose baseline creatinine is >=5 mg/dL or those who do not have a baseline within the last year. The following deltas will flag as critical (triggering a call from the laboratory): a) Deltas >= +1.5 mg/dL for patients with baseline creatinine <= 1.5 mg/dL. b) Deltas >= +3 mg/dL for patients with baseline creatinine between 1.5 and 5 mg/dL. Blood Venipuncture / Unknown 07/11/2025 10:23 PM EDT 07/11/2025 10:29 PM EDT us Mary Anne Bennett MD LAB BLOOD ORDERABLES Final Res ult [facility] [address] [place] [address] * (ABNORMAL) Troponin T High Sensitivity, NO REFLEX (07/11/2025 10:23 PM EDT) [facility] High Sensitivity Troponin T 36(H) See Comment ng/L 07/11/2025 11:10 PM EDT [facility] Comment:High Sensitivity Tro ponin T levels should be interpreted in the context of the [facility] Care Signature pathway. Blood Venipuncture / Unknown 07/11/2025 10:23 PM EDT 07/11/2025 10:29 PM EDT Mary Anne Bennett MD LAB BLOOD ORDERABLES Final Res ult Performing Organization Address [facility] de Phone Number [facility] [address] [place] [address] * Reflex lactic acid, plasma (07/11/2025 5:32 PM EDT) Lactate 1.7 0.4 - 2.0 mmol/L 07/11/2025 6:07 PM EDT [facility] Blood Venipuncture / Unknown 07/11/2025 5:32 PM EDT 07/11/2025 5:43 PM EDT Yeni Thakkar MD LAB BLOOD ORDERABLES Final Res ult Performing Organization Address [facility] Phone Number [facility] [address] [place] [address] * CT ED Chest Abdomen Pelvis w IV Contrast (07/11/2025 5:14 PM EDT) Anatomical Region Laterality Modality Chest, Abdomen, Pelvis, Orth o Pelvis, Abdomen and Pelvis, RCC Abdomen/Pelvis Computed Tomography 07/11/2025 5:16 PM EDT Impressions 07/11/2025 5:35 PM EDT Minor opacity in right upper lobe which could be infectious in the appropriate clinical setting. Slight colonic wall prominence versus underdistention. Correlate for symptomatology of colitis. An alert has been created in the [facility] Radiology Results Notification System. Reported and signed by: Drew Marmolejo MD Narrative 07/11/2025 5:[address] ED CHEST ABDOMEN PELVIS W IV CONTRAST HISTORY: sepsis. COMPARISON: None. G9637 - RADIATION DOSE ACQUIRED DURING SCAN: 561.95 mGy.cm. The [facility] Imaging Department strives for high quality imaging with the lowest possible radiation dose. For more information on medical radiation exposure please visit: [email or web address] . TECHNIQUE: Contiguous axial images were obtained through the chest, abdomen, and pelvis. Intravenous contrast was administered (75 cc Omnipaque 350). Oral contrast was not administered. Sagittal and coronal reformatted images were provided along with MIP images. [id number] FINDINGS: The thyroid gland is unremarkable. The heart is not enlarged. Coronary artery calcifications are not noted. The aorta is not enlarged. There is mild respiratory motion with regions of mild ground glass attenuation bilaterally that could be due to air trapping. There is mild dependent atelectasis. There is additional minor opacity posterior laterally in the right upper lobe which could be infectious. The trachea and central bronchi are patent. There is no mediastinal, hilar, or axillary adenopathy. The liver, gallbladder, biliary tree, spleen, pancreas, adrenal glands, and kidneys are unremarkable. The urinary bladder wall does not appear thickened. The uterus is absent. The ovaries are not seen. Assessment of the bowel is overall limited by the absence of enteric contrast. The appendix is normal. Colonic diverticulosis is seen. There is mild generalized wall prominence versus underdistention of the colon. Spine degenerative changes are noted. Procedure Note Drew Marmolejo MD - 07/11/2025 CT ED CHEST ABDOMEN PELVIS W IV CONTRAST HISTORY: sepsis. COMPARISON: None. G9637 - RADIATION DOSE ACQUIRED DURING SCAN: 561.95 mGy.cm. The [facility] Imaging Department strives for high qualityimaging with the lowest possible radiation dose. For more information onmedical radiation exposure please visit: [email or web address] . TECHNIQUE: Contiguous axial images were obtained through the chest,abdomen, and pelvis. Intravenous contrast was administered (75 ccOmnipaque 350). Oral contrast was not administered. Sagittal and coronalreformatted images were provided along with MIP images. [id number] FINDINGS: The thyroid gland is unremarkable. The heart is not enlarged. Coronary artery calcifications are not noted.The aorta is not enlarged. There is mild respiratory motion with regions of mild ground glassattenuation bilaterally that could be due to air trapping. There is milddependent atelectasis. There is additional minor opacity posteriorlaterally in the right upper lobe which could be infectious. The tracheaand central bronchi are patent. There is no mediastinal, hilar, oraxillary adenopathy. The liver, gallbladder, biliary tree, spleen, pancreas, adrenal glands,and kidneys are unremarkable. The urinary bladder wall does not appearthickened. The uterus is absent. The ovaries are not seen. Assessment of the bowel is overall limited by the absence of entericcontrast. The appendix is normal. Colonic diverticulosis is seen. Thereis mild generalized wall prominence versus underdistention of the colon. Spine degenerative changes are noted. IMPRESSION: Minor opacity in right upper lobe which could be infectious in theappropriate clinical setting. Slight colonic wall prominence versus underdistention. Correlate forsymptomatology of colitis. An alert has been created in the [facility] Radiology Results NotificationSystem. Reported and signed by: Drew Marmolejo MD Yeni Thakkar MD IMG CT ORDERABLES Final Result * Symptomatic 4 Plex -Order only on patients highly likely to be admitted. (07/11/2025 3:07 PM EDT) Influenza A Negative Negative 07/11/2025 3:51 PM EDT [facility] Comment:Negative results do not preclude infection from influenza or other respiratory viruses and should not be used as the sole basis for treatment or management. Influenza may exhibit genomic variation among circulating and newly emerging strains that may lead to unexpected falsely negative results for some tests. For all respiratory pathogens, falsely negative results may also arise from poorly collected specimens. If concerns remain high, providers should contact the laboratory for potential testing by an alternative testing method and/or submit a new well-collected nasopharyngeal specimen. Influenza B Negative Negative 07/11/2025 3:51 PM EDT [facility] Respiratory Syncytial Virus Negative Negative 07/11/2025 3:51 PM EDT [facility] SARS-CoV-2 RNA (COVID-19) Negative Negative 07/11/2025 3:51 PM EDT [facility] Comment:Test performance has not been evaluated in asymptomatic patients. Negative results do not preclude SARS-CoV-2, Influenza A, Influenza B and/or RSV infection. The results of these tests should not be used as the sole basis for diagnosis, treatment, or other patient management decisions. Viral NASOPHARYNGEAL STRUCTURE / Unknown Collection / Unknown 07/11/2025 3:07 PM EDT 07/11/2025 3:11 PM EDT us Yeni Thakkar MD MICROBIOLOGY - GENERAL ORDERAB LES Final Result [facility] [address] [place] [address] * (ABNORMAL) Urinalysis with culture reflex ([facility]) (07/11/2025 3:07 PM EDT) Clarity, UA Clear Clear 07/11/2025 3:28 PM EDT [facility] Color, UA Yellow Yellow, Colorless 07/11/2025 3:28 PM EDT [facility] Specific [place], UA 1.016 1.005 - 1.030 07/11/2025 3:28 PM EDT [facility] pH, UA 6.5 5.5 - 7.5 07/11/2025 3:28 PM EDT [facility] Protein, UA 1+(A) Negative, Trace 07/11/2025 3:28 PM EDT [facility] Glucose, UA Negative Negative 07/11/2025 3:28 PM EDT [facility] Ketones, UA 3+(A) Negative 07/11/2025 3:28 PM EDT [facility] Blood, UA Negative Negative 07/11/2025 3:28 PM EDT [facility] Bilirubin, UA Negative Negative 07/11/2025 3:28 PM EDT [facility] Leukocytes, UA Negative Negative 07/11/2025 3:28 PM EDT [facility] Nitrite, UA Negative Negative 07/11/2025 3:28 PM EDT [facility] Urobilinogen, UA <2.0 <=2.0 mg/dL 07/11/2025 3:28 PM EDT [facility] Moon Top Tube Received ? Yes 07/11/2025 3:28 PM EDT [facility] Urine URINE SPECIMEN OBTAINED BY CLEAN CATCH PROCEDURE / Unknown Collection / Unknown 07/11/2025 3:07 PM EDT 07/11/2025 3:12 PM EDT us Yeni Thakkar MD URINE ORDERABLES Final Result [facility] [address] [place] [id number] * UA reflex to culture (07/11/2025 3:07 PM EDT) Reflex Urine Culture See Comment 07/11/2025 7:00 PM EDT [facility] DEPARTMENT OF LABORATORY MEDICINE Urine URINE SPECIMEN OBTAINED BY CLEAN CATCH PROCEDURE / Unknown Collection / Unknown 07/11/2025 3:07 PM EDT 07/11/2025 3:11 PM EDT Narrative [facility] DEPARTMENT OF LABORATORY MEDICINE - 07/11/2025 7:00 PM EDT Urine culture will be reflexed if indicated by urinalysis results. Please check microbiology results for urine culture. us Yeni Thakkar MD URINE ORDERABLES Final Result Performing Organization Address City/[facility]/ZIP Co de Phone Number [facility] DEPARTMENT OF LABORATORY MEDICINE [address] [place] [id number], [facility] [phone] * Urine microscopic ([facility]) (07/11/2025 3:07 PM EDT) RBC/HPF, UA 2 0 - 2 /HPF 07/11/2025 3:39 PM EDT [facility] WBC/HPF, UA 1 0 - 5 /HPF 07/11/2025 3:39 PM EDT [facility] Bacteria, UA Rare None-Rare /HPF 07/11/2025 3:39 PM EDT [facility] Urine Squamous Epithelial Cells, UA 1 0 - 5 /HPF 07/11/2025 3:39 PM EDT [facility] Urine URINE SPECIMEN OBTAINED BY CLEAN CATCH PROCEDURE / Unknown Collection / Unknown 07/11/2025 3:07 PM EDT 07/11/2025 3:12 PM EDT us Yeni Thakkar MD URINE ORDERABLES Final Result [facility] [address] [place] [address] * Procalcitonin (07/11/2025 2:31 PM EDT) Procalcitonin 0.05 See Comment ng/mL 07/11/2025 7:44 PM EDT [facility] Comment: Procalcitonin Value Likelihood of Active Comments Bacterial Infection Less than or = to 0.25 ng/mL Unlikely See Comment 1 0.26 - 0.50 ng/mL Possible See Comment 2 >0.50 ng/mL Likely See Comment 2 Caution is advised as above reference ranges may not be applicable in pediatric and patients. Comment 1: Procalcitonin may be low in the early phase of an infection and clinical judgement should be used. Procalcitonin has a high negative predictive value. Recommend repeating in 12-24 hours if there is high clinical suspicion of bacterial infection. Comment 2: When clinically stable, consider repeating to determine the duration of antibiotic therapy. High procalcitonin levels may be seen in a number of clinical states not limited to but including: acute kidney injury, end stage renal disease, severe trauma and post-operative states. Caution should be exercised when interpreting procalcitonin in and patients. Procalcitonin is not affected by corticosteroid use. Blood Venipuncture / Unknown 07/11/2025 2:31 PM EDT 07/11/2025 2:38 PM EDT us Russ Denise MD LAB BLOOD ORDERABLES Final Resul t L + [facility] [address] [place] [address] * (ABNORMAL) Lactic acid, plasma (reflex 2h repeat) (07/11/2025 2:31 PM EDT) [facility] Lactate 2.1(H) 0.4 - 2.0 mmol/L 07/11/2025 2:59 PM EDT [facility] Blood Venipuncture / Unknown 07/11/2025 2:31 PM EDT 07/11/2025 2:38 PM EDT Yeni Thakkar MD LAB BLOOD ORDERABLES Final Res ult Performing Organization Address [facility] de Phone Number [facility] [address] [place] [address] * Troponin T High Sensitivity, 1 Hour With Reflex ([facility]) (07/11/2025 2:31 PM EDT) [facility] High Sensitivity Troponin T <6 See Comment ng/L 07/11/2025 3:22 PM EDT [facility] Comment:High Sensitivity Tro ponin T levels should be interpreted in the context of the [facility] Care Signature pathway. 1 hour Delta from 0 Hour, HS-Troponin T 0 ng/L 07/11/2025 3:22 PM EDT [facility] Blood Venipuncture / Unknown 07/11/2025 2:31 PM EDT 07/11/2025 2:38 PM EDT us Asmita Irving MD LAB BLOOD ORDERABLES Final Res ult Performing Organization Address [facility] de Phone Number [facility] [address] [place] [address] * Blood culture (07/11/2025 2:31 PM EDT) Only the most recent of2 resultswithin the time period is included. [facility] Blood Culture No Growth after 5 days of incubation 07/16/2025 9:46 PM EDT [facility] DEPARTMENT OF LABORATORY MEDICINE Blood PERIPHERAL BLOOD SPECIMEN / Unknown Venipuncture / Unknown 07/11/2025 2:31 PM EDT 07/11/2025 2:47 PM EDT Narrative [facility] DEPARTMENT OF LABORATORY MEDICINE - 07/16/2025 9:46 PM EDT All blood culture bottles with growth will be reported. Culture, organism identification, and/or susceptibility results may have been generated with a non-FDA approved method. All methods used in this report have been validated by [facility] Microbiology for clinical use. Anaerobic bottle loaded. Aerobic bottle loaded. us Yeni Thakkar MD MICROBIOLOGY - GENERAL ORDERAB LES Final Result [facility] DEPARTMENT OF LABORATORY MEDICINE [address] [place] [address] * XR Chest PA or AP (07/11/2025 12:53 PM EDT) Anatomical Region Laterality Modality Chest Radiographic Jinny ging 07/11/2025 1:13 PM EDT Impressions 07/11/2025 1:13 PM EDT No acute process is seen. [facility] Radiology Notification System Classification: Routine. Reported and signed by: Domenic Beltran MD Narrative 07/11/2025 1:13 PM EDT Chest HISTORY: Chest Pain IMAGING: AP view of the chest at approximately 12:27. COMPARISON: None FINDINGS: The lungs are clear. The heart is upper normal in size. Hilar structures are within normal limits. Osseous structures are intact. Procedure Note Domenic Beltran MD - 07/11/2025 Chest HISTORY: Chest Pain IMAGING: AP view of the chest at approximately 12:27. COMPARISON: None FINDINGS: The lungs are clear. The heart is upper normal in size. Hilar structuresare within normal limits. Osseous structures are intact. IMPRESSION: No acute process is seen. [facility] Radiology Notification System Classification: Routine. Reported and signed by: Domenic Beltran MD us Asmita Irving MD IMG DIAGNOSTIC IMAGING ORDERAB LES Final Result * TSH w/reflex to FT4 (07/11/2025 12:47 PM EDT) TSH 1.53 0.36 - 3.74 uIU/mL 07/11/2025 1:44 PM EDT [facility] Blood Venipuncture / Unknown 07/11/2025 12:47 PM EDT 07/11/2025 12:51 PM EDT us Yeni Thakkar MD LAB BLOOD ORDERABLES Final Res ult Performing Organization Address [facility] de Phone Number [facility] [address] [place] [address] * Troponin T High Sensitivity, Emergency; 0 hour baseline AND 1 hour with reflex (3 hour) (2:47 PM EDT) [facility] High Sensitivity Troponin T <6 See Comment ng/L 07/11/2025 1:35 PM EDT [facility] Comment:High Sensitivity Tro ponin T levels should be interpreted in the context of the [facility] Care Signature pathway. Blood Venipuncture / Unknown 07/11/2025 12:47 PM EDT 07/11/2025 12:51 PM EDT us Asmita Irving MD LAB BLOOD ORDERABLES Final Res ult Performing Organization Address [facility] [address] [place] [id number] * (ABNORMAL) D-dimer, quantitative (07/11/2025 12:47 PM EDT) [facility] D-Dimer 0.62(H) <0.50 mg/L FEU 07/11/2025 1:32 PM EDT [facility] Comment: CLINICAL CUT OFF VALUE 0.50 mg/L FEU A D-Dimer result of > or = 0.50 mg/L FEU is considered positive* A D-Dimer result of < 0.50 mg/L FEU is considered negative This test is intended to be used as an exclusionary test for diagnosis of PE/DVT in outpatients with a low or medium clinical probability. Blood Venipuncture / Unknown 07/11/2025 12:47 PM EDT 07/11/2025 1:11 PM EDT us Yeni Thakkar MD LAB BLOOD ORDERABLES Final Res ult L + [facility] [address] [place] [address] from Last 3 Months Insurance BS BS BS [employer] [phone] Advance Directives * Full Code (Latest Code Status on File) Date Activated Date Inactivated Comments 07/11/2025 6:20 PM 07/13/2025 5:38 PM Question Answer Comments With Whom was the Code Status Discussed? Patient Care Teams [facility] Manager Relationship Specialty Start Date End Date Ursula Squires MD [address] [place] [address] PCP - General Internal Medicine 07/11/25
== END 2025-07-24 10:10 | disposition home or self-care (01) ==
PROVIDERS: PCP Internal Medicine; Visit Provider Internal Medicine
DX: I48.91 Unspecified atrial fibrillation (principal); R05.9 Cough, unspecified; J45.909 Unspecified asthma, uncomplicated; E78.5 Hyperlipidemia, unspecified

== ENCOUNTER 2025-07-24 08:07 | Outpatient (REF) | payer BC, SELFPAY ==
--- NOTE | ~2025-07-24 | XR_ITS ---
EXAMINATION: XR CHEST CLINICAL INFORMATION: R05 - Cough COMPARISON: February 13, 2023. TECHNIQUE: 2 views of the chest were obtained. FINDINGS: No gross consolidation pleural effusion or pneumothorax. No hyperinflation. Cardiomediastinal silhouette size is normal. Multilevel thoracic and upper lumbar spondylosis. Patient's large body habitus/obesity. XR/XR chest 2V IMPRESSION: No acute airspace disease. Multilevel spondylosis, thoracic spine. Electronically signed by: Luciano Huffman MD 07/24/2025 09:05 AM EDT
--- OUTSIDE RECORDS SUMMARY | 2025-07-24 09:20 | XMS_ITS ---
Author Name [facility] Organization Unknown Results Test Name/Text Value Interpretation Date Range Source Anion Gap SerPl Calculated.3Ions-sCn c 5.0 mmol/L 07/13/2025 5 - 15 [facility] Albumin SerPl BCG-mCnc 3.3 g/dL Below low normal 07/13/2025 3.4 - 5 [facility] Glucose SerPl-mCnc 101.0 mg/dL 07/13/2025 65 - 110 [facility] Bilirub SerPl-mCnc 0.4 mg/dL 07/13/2025 - 1 [facility] BKR CREATININE DELTA -0.03 07/13/2025 - [facility] ALT SerPl w/o P-5'-P-cCnc 23.0 U/L 07/13/2025 13 - 56 [facility] Prot SerPl-mCnc 6.1 g/dL Below low normal 07/13/2025 6.4 - 8.2 [facility] Sodium SerPl-sCnc 142.0 mmol/L 07/13/2025 136 - 14 5 [facility] Calcium SerPl-mCnc 8.8 mg/dL 07/13/2025 8.5 - 10.1 [facility] GFR SerPlBld Creatinine-bsd fmla CKD-EPI >60.0 mL/min/1.73m2 07/13/2025 - [facility] Chloride SerPl-sCnc 112.0 mmol/L Above high normal 98 - 107 [facility] AST SerPl w P-5'-P-cCnc 15.0 U/L 07/13/2025 15 - 37 [facility] Globulin Plas-mCnc 2.8 g/dL 07/13/2025 2.5 - 5 [facility] Potassium SerPl-sCnc 3.9 mmol/L 07/13/2025 3.5 - 5 .1 [facility] HCO3 SerPl-sCnc 25.0 mmol/L 07/13/2025 21 - 32 [facility] Creat SerPl-mCnc 0.73 mg/dL 07/13/2025 0.55 - 1.02 [facility] BUN SerPl-mCnc 18.0 mg/dL 07/13/2025 7 - 18 [facility] ALP SerPl-cCnc 68.0 U/L 07/13/2025 45 - 117 [facility] Phosphate SerPl-mCnc 2.9 mg/dL 07/13/2025 2.5 - 4. 9 [facility] Magnesium SerPl-mCnc 2.0 mg/dL 07/13/2025 1.6 - 2. 6 [facility] Monocytes NFr Bld Auto 11.5 % 07/13/2025 4 - 12 [facility] Imm Granulocytes # Bld Auto 0.02 x 1000/uL 07/13/2025 0 - 0.3 [facility] Imm Granulocytes NFr Bld Auto 0.2 % 07/13/2025 0 - 1 [facility] Platelet # Bld Auto 248.0 x1000/uL 07/13/2025 150 - 420 [facility] WBC # Bld Auto 9.0 x1000/uL 07/13/2025 4 - 11 Y [facility] MCHC RBC Auto-EntMCnc 32.0 g/dL 07/13/2025 31 - 36 [facility] RDW RBC Auto 13.0 % 07/13/2025 11 - [address] [facility] n[facility]BC Bld Auto-Rto 0.0 % 07/13/2025 0 - 1 Y [facility] Basophils # Bld Auto 0.07 x 1000/uL 07/13/2025 0 - 1 [facility] RBC Auto 92.4 fL 07/13/2025 80 - 100 [facility] Monocytes # Bld Auto 1.03 x 1000/uL Above high normal 2024 0 - 1 [facility] Lymphocytes NFr Bld Auto 32.0 % 07/13/2025 17 - 50 [facility] PMV Bld Auto 10.3 fL 07/13/2025 8 - [address] Lymphocytes # Bld Auto 2.88 x 1000/uL 07/13/2025 0.6 - 3.7 [facility] Eosinophil # Bld Auto 0.35 x 1000/uL 07/13/2025 0 - 1 [facility] Hct VFr Bld Auto 40.3 % 07/13/2025 35 - 45 [facility] Neutrophils NFr Bld Auto 51.6 % 07/13/2025 39 - 72 [facility] Eosinophil NFr Bld Auto 3.9 % 07/13/2025 0 - 5 [facility] RBC # Bld Auto 4.36 M/uL 07/13/2025 4 - 6 [facility] MCH RBC Qn Auto 29.6 pg 07/13/2025 27 - 33 [facility] Hgb Bld-mCnc 12.9 g/dL 07/13/2025 11.7 - 15.5 [facility] Neutrophils # Bld Auto 4.64 x 1000/uL 07/13/2025 2 - 7.6 [facility] Basophils NFr Bld Auto 0.8 % 07/13/2025 0 - 1.4 [facility] nRBC # Bld Auto 0.0 x 1000/uL 07/13/2025 0 - 1 [facility] HbA1c MFr Bld 5.9 % 07/12/2025 4.2 - 6.3 [facility] Magnesium SerPl-mCnc 1.8 mg/dL 07/12/2025 1.6 - 2. 6 [facility] Phosphate SerPl-mCnc 2.5 mg/dL 07/12/2025 2.5 - 4. 9 [facility] TSH SerPl DL<=0.005 mIU/L-aCnc 1.22 uIU/mL 07/12/2025 0.36 - 3.74 [facility] Prothrombin time 11.9 seconds 07/12/2025 9.3 - 11. 9 [facility] INR PPP 1.16 07/12/2025 0.89 - 1.18 [facility] T Imm Granulocytes NFr Bld Auto 0.4 % 07/12/2025 0 - 1 [facility] Eosinophil NFr Bld Auto 1.1 % 07/12/2025 0 - 5 [facility] Monocytes NFr Bld Auto 11.0 % 07/12/2025 4 - 12 [facility] RBC # Bld Auto 4.27 M/uL 07/12/2025 4 - 6 [facility] RBC Auto 91.1 fL 07/12/2025 80 - 100 [facility] Neutrophils NFr Bld Auto 59.5 % 07/12/2025 39 - 72 [facility] PMV Bld Auto 10.5 fL 07/12/2025 8 - [address] Imm Granulocytes # Bld Auto 0.04 x 1000/uL 07/12/2025 0 - 0.3 [facility] Hct VFr Bld Auto 38.9 % 07/12/2025 35 - 45 [facility] Basophils # Bld Auto 0.05 x 1000/uL 07/12/2025 0 - 1 [facility] Basophils NFr Bld Auto 0.5 % 07/12/2025 0 - 1.4 [facility] Eosinophil # Bld Auto 0.12 x 1000/uL 07/12/2025 0 - 1 [facility] Neutrophils # Bld Auto 6.35 x 1000/uL 07/12/2025 2 - 7.6 [facility] MCH RBC Qn Auto 29.3 pg 07/12/2025 27 - 33 [facility] Monocytes # Bld Auto 1.18 x 1000/uL Above high normal 2024 0 - 1 [facility] nRBC Bld Auto-Rto 0.0 % 07/12/2025 0 - 1 [facility] Hgb Bld-mCnc 12.5 g/dL 07/12/2025 11.7 - 15.5 [facility] Lymphocytes # Bld Auto 2.94 x 1000/uL 07/12/2025 0.6 - 3.7 [facility] Lymphocytes NFr Bld Auto 27.5 % 07/12/2025 17 - 50 [facility] MCHC RBC Auto-EntMCnc 32.1 g/dL 07/12/2025 31 - 36 [facility] RDW RBC Auto 12.7 % 07/12/2025 11 - [address] nRBC # Bld Auto 0.0 x 1000/uL 07/12/2025 0 - 1 [facility] WBC # Bld Auto 10.7 x1000/uL 07/12/2025 4 - 11 [facility] Platelet # Bld Auto 262.0 x1000/uL 07/12/2025 150 - 420 [facility] Sodium SerPl-sCnc 144.0 mmol/L 07/12/2025 136 - 14 5 [facility] Calcium SerPl-mCnc 8.8 mg/dL 07/12/2025 8.5 - 10.1 [facility] Anion Gap SerPl Calculated.3Ions-sCn c 5.0 mmol/L 07/12/2025 5 - 15 [facility] Creat SerPl-mCnc 0.76 mg/dL 07/12/2025 0.55 - 1.02 [facility] HCO3 SerPl-sCnc 24.0 mmol/L 07/12/2025 21 - 32 [facility] Chloride SerPl-sCnc 115.0 mmol/L Above high normal 98 - 107 [facility] Potassium SerPl-sCnc 3.6 mmol/L 07/12/2025 3.5 - 5 .1 [facility] GFR SerPlBld Creatinine-bsd fmla CKD-EPI >60.0 mL/min/1.73m2 07/12/2025 - [facility] BKR CREATININE DELTA 0.02 07/12/2025 - [facility] BUN SerPl-mCnc 9.0 mg/dL 07/12/2025 7 - 18 [facility] Glucose SerPl-mCnc 180.0 mg/dL Above high normal 07/12/2025 65 - 110 [facility] Magnesium SerPl-mCnc 2.0 mg/dL 07/12/2025 1.6 - 2. 6 [facility] Troponin T SerPl HS-mCnc 36.0 ng/L Above high normal 07/12/2025 - [facility] Hgb Bld-mCnc 12.6 g/dL 07/12/2025 11.7 - 15.5 [facility] Imm Granulocytes NFr Bld Auto 0.4 % 07/12/2025 0 - 1 [facility] WBC # Bld Auto 13.3 x1000/uL Above high normal 07/12/2025 4 - 11 [facility] Monocytes # Bld Auto 1.08 x 1000/uL Above high normal 2024 0 - 1 [facility] RDW RBC Auto 12.8 % 07/12/2025 11 - [address] Neutrophils # Bld Auto 9.97 x 1000/uL Above high normal 07/12/2025 2 - 7.6 [facility] nRBC # Bld Auto 0.0 x 1000/uL 07/12/2025 0 - 1 [facility] Monocytes NFr Bld Auto 8.1 % 07/12/2025 4 - 12 [facility] MCH RBC Qn Auto 29.9 pg 07/12/2025 27 - 33 [facility] RBC # Bld Auto 4.21 M/uL 07/12/2025 4 - 6 [facility] Eosinophil NFr Bld Auto 0.4 % 07/12/2025 0 - 5 [facility] Hct VFr Bld Auto 38.0 % 07/12/2025 35 - 45 [facility] nRBC Bld Auto-Rto 0.0 % 07/12/2025 0 - 1 [facility] PMV Bld Auto 10.4 fL 07/12/2025 8 - [address] Lymphocytes # Bld Auto 2.07 x 1000/uL 07/12/2025 0.6 - 3.7 [facility] Basophils NFr Bld Auto 0.3 % 07/12/2025 0 - 1.4 [facility] Lymphocytes NFr Bld Auto 15.6 % Below low normal 07/12/2025 17 - 50 [facility] Platelet # Bld Auto 266.0 x1000/uL 07/12/2025 150 - 420 [facility] RBC Auto 90.3 fL 07/12/2025 80 - 100 [facility] Eosinophil # Bld Auto 0.05 x 1000/uL 07/12/2025 0 - 1 [facility] Basophils # Bld Auto 0.04 x 1000/uL 07/12/2025 0 - 1 [facility] MCHC RBC Auto-EntMCnc 33.2 g/dL 07/12/2025 31 - 36 [facility] Neutrophils NFr Bld Auto 75.2 % Above high normal 07/12/2025 39 - 72 [facility] Imm Granulocytes # Bld Auto 0.05 x 1000/uL 07/12/2025 0 - 0.3 [facility] Lactate SerPl-sCnc 1.7 mmol/L 07/11/2025 0.4 - 2 [facility] BKR REFLEX URINE CULTURE See Comment 07/11/2025 [facility] Bacteria # Ur Auto Rare 07/11/2025 - [facility] Squamous #/area UrnS Auto 1.0 /HPF 07/11/2025 0 - 5 [facility] WBC #/area UrnS Auto 1.0 /HPF 07/11/2025 0 - 5 [facility] RBC #/area UrnS Auto 2.0 /HPF 07/11/2025 0 - 2 [facility] Clarity Ur Refract.auto Clear 07/11/2025 - [facility] Color Ur Auto Yellow 07/11/2025 - [facility] BKR TEST RECEIVED Yes 07/11[facility]20[facility] Strip.auto-mCnc 1+ Abnormal 07/11/2025 - [facility] pH Ur Strip.auto 6.5 07/11/2025 5.5 - 7.5 [facility] Ketones Ur Strip.auto-mCnc 3+ Abnormal 07/11/2025 - [facility] Nitrite Ur Ql Strip.auto Negative 07/11/2025 - [facility] Bilirub Ur Ql Strip.auto Negative 07/11/2025 - [facility] Glucose Ur Strip.auto-mCnc Negative 07/11/2025 - [facility] WBC # Ur Strip Negative 07/11/2025 - [facility] Sp Gr Ur Refract.auto 1.016 07/11/2025 1.005 - 1.03 [facility] Hgb Ur Ql Strip.auto Negative 07/11/2025 - [facility] Urobilinogen Ur Strip-mCnc <2.0 mg/dL 07/11/2025 - [facility] Procalcitonin SerPl-mCnc 0.05 ng/mL 07/11/2025 - [facility] Troponin T SerPl HS-mCnc 0.0 ng/L 07/11/2025 [facility] Lactate SerPl-sCnc 2.1 mmol/L Above high normal 07/11/2025 0 .4 - 2 [facility] Albumin SerPl BCG-mCnc 4.2 g/dL 07/11/2025 3.4 - 5 [facility] GFR SerPlBld Creatinine-bsd fmla CKD-EPI >60.0 mL/min/1.73m2 07/11/2025 - [facility] Globulin Plas-mCnc 3.6 g/dL 07/11/2025 2.5 - 5 [facility] Creat SerPl-mCnc 0.74 mg/dL 07/11/2025 0.55 - 1.02 [facility] BUN SerPl-mCnc 12.0 mg/dL 07/11/2025 7 - 18 [facility] Chloride SerPl-sCnc 107.0 mmol/L 07/11/2025 98 - 1 07 [facility] Potassium SerPl-sCnc 3.6 mmol/L 07/11/2025 3.5 - 5 .1 [facility] Anion Gap SerPl Calculated.3Ions-sCn c 5.0 mmol/L 07/11/2025 5 - 15 [facility] Prot SerPl-mCnc 7.8 g/dL 07/11/2025 6.4 - 8.2 [facility] ALP SerPl-cCnc 77.0 U/L 07/11/2025 45 - 117 [facility] Glucose SerPl-mCnc 143.0 mg/dL Above high normal 07/11/2025 65 - 110 [facility] ALT SerPl w/o P-5'-P-cCnc 26.0 U/L 07/11/2025 13 - 56 [facility] HCO3 SerPl-sCnc 25.0 mmol/L 07/11/2025 21 - 32 [facility] Calcium SerPl-mCnc 9.5 mg/dL 07/11/2025 8.5 - 10.1 [facility] AST SerPl w P-5'-P-cCnc 22.0 U/L 07/11/2025 15 - 37 [facility] BKR CREATININE DELTA 07/11/2025 [facility] Sodium SerPl-sCnc 137.0 mmol/L 07/11/2025 136 - 14 5 [facility] Bilirub SerPl-mCnc 0.5 mg/dL 07/11/2025 - 1 [facility] Magnesium SerPl-mCnc 2.0 mg/dL 07/11/2025 1.6 - 2. 6 [facility] TSH SerPl DL<=0.005 mIU/L-aCnc 1.53 uIU/mL 07/11/2025 0.36 - 3.74 [facility] Troponin T SerPl HS-mCnc <6.0 ng/L 07/11/2025 - [facility] D Dimer PPP FEU-mCnc 0.62 mg/L FEU Above high normal 025 - 0.5 [facility] RBC # Bld Auto 4.81 M/uL 07/11/2025 4 - 6 [facility] Imm Granulocytes # Bld Auto 0.11 x 1000/uL 07/11/2025 0 - 0.3 [facility] nRBC Bld Auto-Rto 0.0 % 07/11/2025 0 - 1 [facility] Hgb Bld-mCnc 14.4 g/dL 07/11/2025 11.7 - 15.5 [facility] Hct VFr Bld Auto 43.2 % 07/11/2025 35 - 45 [facility] Monocytes NFr Bld Auto 6.1 % 07/11/2025 4 - 12 [facility] Basophils # Bld Auto 0.07 x 1000/uL 07/11/2025 0 - 1 [facility] Neutrophils # Bld Auto 13.0 x 1000/uL Above high normal 07/11/2025 2 - 7.6 [facility] PMV Bld Auto 11.0 fL 07/11/2025 8 - [address] WBC # Bld Auto 16.8 x1000/uL Above high normal 07/11/2025 4 - 11 [facility] RBC Auto 89.8 fL 07/11/2025 80 - 100 [facility] Neutrophils NFr Bld Auto 77.6 % Above high normal 07/11/2025 39 - 72 [facility] Imm Granulocytes NFr Bld Auto 0.7 % 07/11/2025 0 - 1 [facility] nRBC # Bld Auto 0.0 x 1000/uL 07/11/2025 0 - 1 [facility] Platelet # Bld Auto 270.0 x1000/uL 07/11/2025 150 - 420 [facility] RBC Auto-EntMCnc 33.3 g/dL 07/11/2025 31 - 36 [facility] Eosinophil # Bld Auto 0.25 x 1000/uL 07/11/2025 0 - 1 [facility] NFr Bld Auto 13.7 % Below low normal 07/11/2025 17 - 50 [facility] Lymphocytes # Bld Auto 2.3 x 1000/uL 07/11/2025 0.6 - 3.7 [facility] RBC Qn Auto 29.9 pg 07/11/2025 27 - 33 [facility] Monocytes # Bld Auto 1.02 x 1000/uL Above high normal 2024 0 - 1 [facility] Eosinophil NFr Bld Auto 1.5 % 07/11/2025 0 - 5 [facility] RDW RBC Auto 12.6 % 07/11/2025 11 - [address] [facility] Basophils NFr Bld Auto 0.4 % 07/11/2025 0 - 1.4 [facility] History of Medication Use Medication Directions Dispensed Refills Start Date End Date Status cholecalciferol (vitamin D3) tablet 1,000 Units 5 07/13/20 25 aborted apixaban (ELIQUIS) 5 mg tablet Take 1 tablet (5 mg total) by mouth every 12 (twelve) hours. 5 07/13/20 25 active dilTIAZem CD (CARDIZEM CD) 120 mg 24 hr capsule Take 1 capsule (120 mg total) by mouth daily. 5 07/13/20 25 active amoxicillin-clavulan ate (AUGMENTIN) 875-125 mg per tablet Take 1 tablet by mouth every 12 (twelve) hours for 7 doses. active amoxicillin-clavulan ate (AUGMENTIN) 875-125 mg tablet 1 tablet 1 tablet (875 mg), Oral, EVERY 12 HOURS, First dose on 07/12/25 at 0845, For 7 days, Reason for Use (RFU): Treatment of suspected/culture-do cumented infection, Pharmacist will implement [facility] Renal Dose Adjustment Protocol unless otherwise specified: Implement Protocol 07/13/20 aborted ethyl alcohol 62 % nasal swab 1 Application 1 Application, Nasal, Every 12 Hours Scheduled, First dose on Mon07/11/25 at 2100, 1) Clean inside of both nostrils with a tissue. 2) Insert swab into right nostril and rotate for 30 seconds. 3) Repeat swab procedure in left nostril. 4) Do not blow nose. If solution drips, gently wipe with a tissue 07/13/20 aborted pantoprazole (PROTONIX) EC tablet 40 mg 40 mg, Oral, Daily, First dose on 07/12/25 at 0900, Tablet should be swallowed whole; do no split, crush or chew with the EXCEPTION of patients with a J-tube in which the tablet(s) may be crushed for administration. Common Side Effects: stomach upset, headache, nausea., Reason for Use (RFU): Tr 07/13/20 aborted polyethylene glycol (MIRALAX) packet 17 g 17 g, Oral, Daily, First dose on Mon07/12/25 at 0900, Hold for loose stools. Dissolve in 4-8 oz of water, juice, soda, coffee or tea. Common Side Effects: Diarrhea, discomfort, cramps. 07/13/20 aborted potassium bicarbonate-citric acid (EFFER-K, K-LYTE) effervescent tablet for oral solution 40 mEq 40 mEq, Oral, EVERY 2 HOURS PRN, Potassium Replacement Protocol, Starting on 07/12/25 at 0048, - Potassium less than 3.4 mEq/L: Give KCL 40 mEq PO x 2 doses each 2 hours apart. - Potassium 3.4 to 3.5 mEq/L: Give KCL 40 mEq PO x 1 dose. Exclusion Criteria: Do NOT utilize replacement protocol if p 5 07/13/20 aborted magnesium sulfate IVPB 1 g 1 g, Intravenous, at 100 mL/hr, ONCE, On Mon07/12/25 at 0900, For 1 dose, Magnesium Level 1.4-1.6 mg/dl AND CrCl < 30 mL/min: Replete with Magnesium sulfate 1g IV x 1 dose. 07/12/20 completed perflutren lipid microspheres (DEFINITY) 1.3 mL in sodium chloride 0.9% PF 8.7 mL injection 10 mL, Intravenous, IMG ONCE PRN, other, Starting on Mon07/12/25 at 1426, For 1 dose, Dilute bolus method: dilute 1.3 mL drug with 8.7 mL saline to make 10 mL diluted product. Administration rate: Administer 1 mL over 10 seconds. Additional 0.5 mL as needed. NOT to exceed 20 mL of diluted product. 07/12/20 completed chlorhexidine gluconate (HIBICLENS/BETASEPT) 4 % topical liquid Topical (Top), Daily, First dose on Mon07/11/25 at 1830, Apply from the neck down for daily bathing. Do not apply to head or face (including mouth, eyes, or nose), internal genital membranes, and/or wounds that involve more than the superficial layer of the skin. For patients with an indwelling urin 07/13/20 aborted ondansetron (ZOFRAN-ODT) disintegrating tablet 4 mg 4 mg, Oral, EVERY 6 HOURS PRN, nausea or vomiting, Starting on Mon07/11/25 at 1820, First line therapy. Common Side Effects: Lightheaded, stomach upset, headache. 07/13/20 aborted sodium chloride 0.9 % flush 2.5 mL 2.5 mL, Intravenous, PRN for Line Care, line care, Before and after administration of intravenous fluids, medications and blood products and/or blood specimen collection; As needed to assess catheter patency, Starting on Mon07/11/25 at 1711 07/13/20 aborted dilTIAZem (CARDIZEM) 125 mg in sodium chloride 0.9 % 125 mL (1 mg/mL) infusion 125 mL, at 5-15 mL/hr, Intravenous, CONTINUOUS, Starting on Mon07/11/25 at 1830, Start: 5 mg/hr Titrate by: 5 mg/hr No more frequently than every: 10 minutes Maximum Dose: 15 mg/hr Minimum frequency of titration goal parameter assessment: every 4 hours and/or pre/post dose changes Notify coveri 5 07/12/20 aborted doxycycline TAB/CAP 100 mg 100 mg, Oral, EVERY 12 HOURS, First dose on Mon07/11/25 at 1830, Reason for Use (RFU): CAP - atypical organisms suspected 07/12/20 aborted enoxaparin (LOVENOX) injection 80 mg 80 mg, Subcutaneous, EVERY 12 HOURS, First dose on Mon07/11/25 at 1830, Contraindicated with epidural use. Common Side Effects: Bruising, minor and major bleeding., Reason for Use: Atrial Fibrillation, Pharmacist will implement Anticoagulation Baseline & Maintenance Laboratory Monitoring Protocol un 07/12/20 aborted lactated ringers infusion 75 mL/hr, Intravenous, CONTINUOUS, Starting on Mon07/11/25 at 1830, For 24 hours 07/12/20 aborted metoprolol tartrate (LOPRESSOR) Immediate Release tablet 25 mg 25 mg, Oral, 2 Times Daily Scheduled, First dose on Mon07/11/25 at 1930, Hold for SBP < 90 mm Hg or HR < 50 BPM Common Side Effects: Fatigue, dizziness, hypotension, bradycardia. 07/12/20 aborted iohexoL (OMNIPAQUE) 350 mg iodine/mL injection 75 mL 75 mL, Intravenous, IMG ONCE PRN, other, Starting on Mon07/11/25 at 1710, For 1 dose, Vesicant agents may cause severe tissue damage, including necrosis, if they extravasate into tissue; Common Side Effects: Headache, nausea, allergic reaction. 5 07/11/20 completed ondansetron (PF) (ZOFRAN) injection 4 mg 4 mg, IV Push, ONCE, On Mon07/11/25 at 1245, For 1 dose, Maximum IV Push dose of 16 mg. If ordered IV Push administer undiluted over 2 minutes. Common side effects include: lightheaded, stomach upset, and headache. Irritant 5 07/11/20 completed sodium chloride 0.9 % (new bag) bolus 1,000 mL 1,000 mL, Intravenous, Administer over 15 Minutes, ONCE, On Mon07/11/25 at 1245, For 1 dose, Reason for dose less than 30 mL/Kg: Not clinically indicated 07/11/20 completed sodium chloride 0.9% large volume syringe for autoinjector 40 mL 40 mL, Intravenous, IMG ONCE PRN, other, Imaging, Starting on Mon07/11/25 at 1711, For 1 dose 07/11/20 completed dilTIAZem (CARDIZEM) Immediate Release tablet 60 mg 60 mg, Oral, ONCE, On Mon07/11/25 at 1800, For 1 dose, Hold for SBP < 90 mm Hg or HR < 50 BPM active dilTIAZem (CARDIZEM) injection 10 mg 10 mg, IV Push, ONCE, On Mon07/11/25 at 1645, For 1 dose, For na ve patients on non-critical care unit, provider must be readily available on unit. Na ve = no IV or enteral diltiazem previously administered. Administer undiluted over 2 minutes. RECOMMENDED monitoring for na ve patients includes: active omeprazole (PRILOSEC) 20 mg capsule Take 1 capsule (20 mg total) by mouth daily as needed. active rosuvastatin (CRESTOR) tablet 5 mg 5 07/13/20 aborted Problems Problem Status Onset Date Problem Type Date of Resolution Source Leukocytosis active 2025-07-12 ProblemAct [facility] A-fib (HC Code) active 2025-07-13 ProblemAct [facility] Hyperglycemia active 2025-07-12 ProblemAct [facility] Nausea and vomiting, unspecified vomiting type active EncounterDiagnosisAct [facility] Encounters Encounter Type Encounter Reason Primary Diagnosis Location Date Inpatient Atrial fibrillation (HC Code) Atrial fibrillation (HC Code) [facility] 07/11/2025 Care Team Organization Name Specialty Phone Email Start Date End Da te [facility] Ursula Squires [facility] 07/11/2025 [facility] 07/11/2025
== END 2025-07-24 08:08 | disposition home or self-care (01) ==
LOC: HO.HMGCX 08:07
PROVIDERS: PCP Internal Medicine; Visit Provider Internal Medicine
DX: I48.91 Unspecified atrial fibrillation (principal); R05.9 Cough, unspecified; J45.909 Unspecified asthma, uncomplicated; E78.5 Hyperlipidemia, unspecified
CPT/HCPCS: 71046

== ENCOUNTER → 2025-07-24 08:53 | Outpatient (BNV) | payer BC, SELFPAY | PROVIDERS: PCP Internal Medicine; Visit Provider Radiology Diagnostic Radiology | DX: R05.9 Cough, unspecified (principal); M47.814 Spondylosis without myelopathy or radiculopathy, thoracic region | CPT/HCPCS: 71046 ==

== ENCOUNTER 2025-08-25 08:47 | Outpatient (AMB) | payer BC, SELFPAY ==
[2025-08-25 08:52] VITALS: BP 126/76; PULSE 73; RESP 18; TEMP 36.9; O2SAT 97; BMI 32.8
--- NOTE | 2025-08-25 08:52 | MHC.PC.OV ---
Vital Signs 08/25/25 08:52 Height 5 ft Weight 168 lb BMI 32.8 BP 126/76 Blood Pressure Location Lt brachial Position Sitting Respiration 18 Pulse 73 Pulse Source Pulse Oximeter Temp 98.5 F Temp Source Oral Pulse Oximetry (%) 97 Oxygen Delivery Method Room Air Intake Visit Reasons: Follow up Intake Note: Pt is here today for a follow up visit. Allergies pravastatin Adverse Reaction (Intermediate, Verified 08/25/25 08:54) myalgia Medication List - Last Reconciled 08/25/25 by Ursula Squires MD Advair Diskus 100-50 mcg/dose (fluticasone propion-salmeterol) 1 inh inhalation BID NS albuterol sulfate 90 mcg/actuation 2 puffs inhalation Q6H PRN cholecalciferol (vitamin D3) 50 mcg PO DAILY [email or web address],knee,reg,smal As directed dicyclomine 10 mg PO TID diltiazem HCl CD 120 mg PO DAILY Eliquis (apixaban) 5 mg PO BID NS meclizine 25 mg PO BID PRN omeprazole 20 mg PO DAILY ondansetron 4 mg PO Q8H rosuvastatin (Crestor) 5 mg PO DAILY Tobacco use date assessed: 07/24/25 Fall risk assessment: No Falls in past year Last assessed Fall Risk: 08/25/25 Dental Screening Dental Screen Date: 06/25/25 HPI Follow up HPI Details Pt presents for the follow-up. She has not had any recurrent symptoms of palpitations or AFib. She was evaluated by Cardiology Dr. Chavez at [facility] patient was advised to monitor her heart rate with Kardia monitor and report any recurrent arrhythmia to Cardiology. Patient was to complete the treatment with diltiazem and Eliquis for 2 weeks and then discontinue it. She complains of recurrent positional vertigo on and off for a year relieved with meclizine. [facility] Medical History (Updated 08/25/25 @ 09:36 by Ursula Squires MD) A-fib Shoulder pain, right Normal pelvic exam Normal breast exam GERD (gastroesophageal reflux disease) Annual physical exam Cough Abdominal pain Surgical History Hx of colonoscopy Family History Father No problems noted. Mother No problems noted. 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 1. Little interest or pleasure in doing things: not at all 2. Feeling down, depressed, or hopeless: not at all 3. Trouble falling or staying asleep, or sleeping too much: not at all 4. Feeling tired or having little energy: not at all 5. Poor appetite or overeating: not at all 6. Feeling bad about yourself - or that you are a failure or have let yourself or your family down: not at all 7. Trouble concentrating on things, such as reading the newspaper or watching television: not at all 8. Moving or speaking so slowly that other people could have noticed. Or the opposite - being so fidgety or restless that you have been moving around a lot more than usual: not at all 9. Thoughts that you would be better off or of hurting yourself in some way: not at all Total score: 0 Depression Screening Interpretation: Negative Depression Screening Done: Yes Source: Developed by Drs. Alvarez Alvarez, Zoraida Rodgers, Daniel Hollingsworth and colleagues, with an educational cielo from [employer]. Thrive Questionnaire Date Thrive assessed: 01/13/25 DANDY-7 AMB Questionnaire DANDY-7 Date DANDY - 7 assessed: 01/13/25 Feeling nervous, anxious, or on edge: 0 = Not at all Not being able to stop or control worryin = Not at all Worrying too much about different things: 0 = Not at all Trouble relaxin = Not at all Being so restless that it is hard to sit still: 0 = Not at all Becoming easily annoyed or irritable: 0 = Not at all Feeling afraid as if something awful might happen: 0 = Not at all Total DANDY-7 score (0-4 normal; 5-9 mild; 10-14 moderate; 15-21 severe): 0 Source: Developed by Drs. Alvarez Alvarez, Zoraida Rodgers, Daniel Hollingsworth and colleagues, with an educational cielo from [employer]. Review of Systems Const All systems reviewed & are unremarkable except as noted in HPI and below Eyes Reports no additional complaints ENT Reports no additional complaints Card Reports no additional complaints Resp Reports no additional complaints GI Reports no additional complaints Physical exam (Primary Care) Vital Signs: Last Vital Signs Temp 98.5 F 08/25/25 08:52 Pulse 73 08/25/25 08:52 Resp 18 08/25/25 08:52 BP 126/76 08/25/25 08:52 Pulse Ox 97 08/25/25 08:52 Oxygen Delivery Method Room Air 08/25/25 08:52 BMI result Body Mass Index 32.8 Tobacco/Smoking Status: Tobacco use Status Tobacco use date assessed 07/24/25 08/25/25 08:58 Patient Tobacco Use Status Former Tobacco user 08/25/25 08:58 e-Cigarette/Vaping Use Never Used 08/25/25 08:58 PHQ-9: PHQ-9 Score PHQ-9: Total score 0 08/25/25 09:00 Depression Screening Interpretation: Negative Thrive Assessment: Date of Thrive Assessment Date Thrive assessed 01/13/25 08/25/25 08:58 Const General: no acute distress HENMT Head: Yes normal to inspection Throat: Yes posterior oropharynx normal Neck Neck: Yes no lymphadenopathy and Yes supple Resp Effort & Inspection: normal respiratory effort Auscultation: clear to auscultation bilaterally Cardio Rhythm: regular rhythm Heart sounds: S1 normal heart sound present and S2 normal heart sound present Coding Level of Care Code Est Pt Level 4 (24840) Diagnoses Benign positional vertigo H81.10 A-fib I48.91 Assessment & Plan Assessment & Plan (1) Benign positional vertigo: Code(s): H81.10 - Benign paroxysmal vertigo, unspecified ear Category: Medical Plan: Continue meclizine and referred to vestibular therapy (2) A-fib: Comment: New onset AFib triggered by motion sickness, hospitalized in [place] 07/13/25, STARTED ON DILTIAZEM AND ELIQUIS, seen by Dr.Fox Flores, pt will stop Diltiazem and Eliquis and monitor with KrowdPad Code(s): I48.91 - Unspecified atrial fibrillation Category: Medical Plan: Patient will monitor her heart rate with Kardia monitor. Patient will monitor her blood pressure at home and follow-up in 2 months Orders: Orders PT Evaluation and Treatment Today H81.10 - Benign paroxysmal vertigo, unspecified ear Medications: Refilled meclizine 25 mg PO BID PRN 60 tabs 0RF dizziness
--- OUTSIDE RECORDS SUMMARY | 2025-08-25 09:35 | XMS_ITS | Clinical Summary ---
Author Organization [address] Address [address] [place] [address] Phone Care Team Providers Care [employer] Name Role Phone Ursula Squires MD Primary Care Provider [phone] Medications omeprazole (PRILOSEC) 20 mg capsule Take 1 capsule (20 mg total) by mouth daily as needed. 06/27/2025 Active rosuvastatin (CRESTOR) 5 mg tablet Take 1 tablet (5 mg total) by mouth daily. 01/13/2025 Active cholecalciferol , vitamin D3, 25 mcg (1,000 unit) tablet Take 1 tablet (1,000 Units total) by mouth daily. Active dilTIAZem CD (CARDIZEM CD) 120 mg 24 hr capsule Take 1 capsule (120 mg total) by mouth daily. 30 capsule 07/14/2025 Active apixaban (ELIQUIS) 5 mg tablet Take 1 tablet (5 mg total) by mouth every 12 (twelve) hours. 60 tablet 07/13/2025 08/12/20 Active Problems Problem Noted Date Diagnosed Date A-fib (HC Code) 07/13/2025 Leukocytosis 07/12/2025 Hyperglycemia 07/12/2025 New onset atrial fibrillation (HC Code) 07/11/20 Encounters Date Type Department Care Team Description 07/14/2025 Patient Outreach [facility] Call Center [address] [place] [id number] [facility] Discharge Follow Up 07/11/2025 12:34 PM EDT - 07/13/2025 1:32 PM EDT Hospital Encounter [facility] 3.4 ICU [address] [place] [address] [phone] Yeni Thakkar MD Wilson, Mina Gamal Nasr, MD Astras, Nicolas J, DO New onset atrial fibrillation (HC Code) (Primary Dx); Nausea and vomiting, unspecified vomiting type; Atrial fibrillation, unspecified type (HC Code) Discharge Disposition: Home or Self Care 07/11/2025 Travel from Last 3 Months Social History Tobacco Use Types Packs/Day Years Used Date Smoking Tobacco: Never Assessed [facility] Utilities Answer Date Recorded In the past 12 months has th e electric, gas, oil, or water company threatened [...] your living situation today? I have a [facility] place to live 07/11/2025 Housing Stability Not [...] - PCV20 or PCV21) 09/30/2024 09/30/2019, 08/16/2017 Influenza vaccine 06/20/2025 Covid-19 vaccine series ( - season) 2025 Prediabetes Surveillance 07/12/2026 07/12/2025 Diabetes screening 07/13/2028 [...] EDT TROPONIN T HIGH SENSITIVITY, NO REFLEX (BH GH LMW YH) STAT 07/11/2025 10:23 PM EDT MAGNESIUM Routine 07/11/2025 10:23 PM EDT REFLEX LACTIC ACID, PLASMA STAT 07/11/2025 5:[address] ED CHEST ABDOMEN PELVIS W IV CONTRAST Within 2 hours (STAT) 07/11/2025 5:14 PM EDT URINE MICROSCOPIC ( GH LMW YH) Routine 07/11/2025 3:07 PM EDT URINALYSIS WITH CULTURE REFLEX ( LMW YH) STAT 07/11/2025 3:07 PM EDT UA REFLEX CULTURE STAT 07/11/2025 3:0 7 PM EDT URINALYSIS WITH CULTURE REFLEX STAT 07/11/2025 3:07 PM EDT SARS-COV-2 (COVID-19)/INFLUENZA A+B/RSV BY RT-PCR ([facility] LMW YH) Routine 07/11/2025 3:07 PM EDT PROCALCITONIN ([facility] LMW Q YH) Routine 07/11/2025 2:31 PM EDT LACTIC ACID, PLASMA (REFLEX 2H REPEAT) STAT 07/11/2025 2:31 PM EDT TROPONIN T HIGH SENSITIVITY, 1 HOUR WITH REFLEX ( GH LMW YH) STAT - Timed 07/11/2025 2:31 PM EDT BLOOD CULTURE STAT 07/11/2025 2:31 PM EDT BLOOD CULTURE STAT 07/11/2025 2:31 PM EDT BLOOD CULTURE - NEW CONCERN (2 BOTTLES) ([facility] L LMW YH) STAT 07/11/2025 2:31 PM [...] HIGH SENSITIVITY, 0 HOUR BASELINE WITH REFLEX ( GH LMW YH) STAT 07/11/2025 12:47 PM EDT EKG STAT 07/11/2025 12:40 PM EDT from Last 3 Months Results * (ABNORMAL) Comprehensive metabolic panel (07/13/2025 5:13 AM EDT) Only the most recent of2 resultswithin the time period is included. Sodium 142 136 - 145 mmol/L 07/13/2025 6:[address] [facility] Comment:Test repeated and re sults verified. Potassium 3.9 3.5 - 5.1 mmol/L 07/13/2025 6:[address] [facility] Comment:Test repeated and re sults verified. Chloride 112(H) 98 - 107 mmol/L 07/13/2025 6:27 AM [facility] Comment:Test repeated and re sults verified. CO2 25 21 - 32 mmol/L 07/13/2025 6:27 AM [facility] Comment:Test repeated and re sults verified. Anion Gap 5 5 - 15 mmol/L 07/13/2025 6:27 AM [facility] Glucose 101 65 - 110 mg/dL 07/13/2025 6:27 AM [facility] Comment: Non-fastin-110 mg/dL Fasting (minimum 6 hrs): 65-99 mg/dL BUN 18 7 - 18 mg/dL 07/13/2025 6:27 AM [facility] Creatinine 0.73 0.55 - 1.02 mg/dL 07/13/2025 6:27 AM [facility] Calcium 8.8 8.5 - 10.1 mg/dL 07/13/2025 6:27 AM [facility] Total Protein 6.1(L) 6.4 - 8.2 g/dL 07/13/2025 6:27 AM [facility] Albumin 3.3(L) 3.4 - 5.0 g/dL 07/13/2025 6:27 AM [facility] Globulin 2.8 2.5 - 5.0 g/dL 07/13/2025 6:27 AM [facility] Total Bilirubin 0.4 <1.0 mg/dL 6:27 AM [facility] Comment:Use of this assay is not recommended for patients undergoing treatment with Eltrombopag due to the potential for falsely elevated results. Alkaline Phosphatase 68 45 - 117 U/L 07/13/2025 6:27 AM [facility] Alanine Aminotransferase (ALT) 23 13 - 56 U/L 07/13/2025 6:27 AM [facility] Aspartate Aminotransferase (AST) 15 15 - 37 U/L 07/13/2025 6:27 AM [facility] eGFR (Creatinine) >60 >=60 mL/min/1.73 m2 07/13/2025 6:27 AM [facility] Comment: [facility] utilizes CKD-EPI Creatinine 2020 to report eGFR. Values < 60 mL/min/1.73 m2 may indicate CKD if present for more than three months AND creatinine is at steady state. The eGFR provides a rough estimate of kidney function. For further guidance, please refer to the CKD: Adult Remote Sensing Technician Signature pathway. Creatinine Delta -0.03 See Comment 025 6:[address] [facility] Comment: Delta creatinine is the difference [...] DO LAB BLOOD ORDERABLES Final R esult [facility] [address] [place] [address] * (ABNORMAL) CBC auto differential (07/13/2025 5:13 AM EDT) Only the most recent of4 resultswithin the time period is included. WBC 9.0 4.0 - 11.0 x1000/ L 07/13/2025 5:[address] [facility] RBC 4.36 4.00 - 6.00 M/ L 07/13/2025 5:[address] [facility] Hemoglobin 12.9 11.7 - 15.5 g/dL 07/13/2025 5:[address] [facility] Hematocrit 40.30 35.00 - 45.00 % 07/13/2025 5:[address] [facility] MCV 92.4 80.0 - 100.0 fL 07/13/2025 5:[address] [facility] MCH 29.6 27.0 - 33.0 pg 07/13/2025 5:[address] [facility] MCHC 32.0 31.0 - 36.0 g/dL 07/13/2025 5:[address] [facility] RDW-CV 13.0 11.0 - 15.0 % 07/13/2025 5:[address] [facility] Platelets 248 150 - 420 x1000/ L 07/13/2025 5:[address] [facility] MPV 10.3 8.0 - 12.0 fL 07/13/2025 5:[address] [facility] Neutrophils 51.6 39.0 - 72.0 % 07/13/2025 5:[address] [facility] Lymphocytes 32.0 17.0 - 50.0 % 07/13/2025 5:[address] [facility] Monocytes 11.5 4.0 - 12.0 % 07/13/2025 5:[address] [facility] Eosinophils 3.9 0.0 - 5.0 % 07/13/2025 5:[address] [facility] Basophil 0.8 0.0 - 1.4 % 07/13/2025 5:[address] [facility] Immature Granulocytes 0.2 0.0 - 1.0 % 07/13/2025 5:[address] [facility] nRBC 0.0 0.0 - 1.0 % 07/13/2025 5:[address] [facility] Absolute Lymphocyte Count 2.88 0.60 - 3.70 x 1000/ L 07/13/2025 5:[address] [facility] Monocyte Absolute Count 1.03(H) 0.00 - 1.00 x 1000/ L 07/13/2025 5:[address] [facility] Eosinophil Absolute Count 0.35 0.00 - 1.00 x 1000/ L 07/13/2025 5:[address] [facility] Basophil Absolute Count 0.07 0.00 - 1.00 x 1000/ L 07/13/2025 5:[address] [facility] Absolute Immature Granulocyte Count 0.02 0.00 - 0.30 x 1000/ L 07/13/2025 5:[address] [facility] Absolute nRBC 0.00 0.00 - 1.00 x 1000/ L 07/13/2025 5:[address] [facility] ANC (Abs Neutrophil Count) 4.64 2.00 - 7.60 x 1000/ L 07/13/2025 5:[address] [facility] Blood Venipuncture / Unknown 07/13/2025 5:13 AM EDT 07/13/2025 5:42 AM EDT [employer] LAB BLOOD ORDERABLES Final R [facility] Performing Organization Address [facility] Co de Phone Number [facility] [address] [place] [address] * Phosphorus (BH GH L LMW YH) (07/13/2025 5:13 AM EDT) Only the most recent of2 resultswithin the time period is included. Phosphorus 2.9 2.5 - 4.9 mg/dL 07/13/2025 6:[address] [facility] Blood Venipuncture / Unknown 07/13/2025 5:13 AM EDT 07/13/2025 5:35 AM EDT [employer] LAB BLOOD ORDERABLES Final R [facility] Performing Organization Address [facility] Co de Phone Number [facility] [address] [place] [address] * Magnesium (07/13/2025 5:13 AM EDT) Only the most recent of4 resultswithin the time period is included. Magnesium 2.0 1.6 - 2.6 mg/dL 07/13/2025 6:[address] [facility] Blood Venipuncture / Unknown 07/13/2025 5:13 AM EDT 07/13/2025 5:35 AM EDT us Zafar Hinojosa DO LAB BLOOD ORDERABLES Final R esult [facility] [address] [place] [address] * TRANSTHORACIC ECHO (TTE) COMPLETE W COLOR, DOPPLER AND CONTRAST (07/12/2025 2:26 PM EDT) Reported Visual Range EF% 60-65 % [facility] Comment:UNSELECTED VALUES:EF Percent BiPlane (LUM4C [...] period is included. Heart Rate 50 bpm [facility] EKG QRS Interval 111 ms [facility] EKG QT Interval 458 ms [facility] EKG QTC Interval 418 ms [facility] EKG P Pray 48 deg [facility] EKG QRS Pray -17 deg [facility] EKG T Wave Pray 26 deg [facility] EKG P-R Interval 147 msec [facility] EKG SEVERITY Borderline ECG severity [facility] EKG Comment::Sinus rhythm:Border line left axis deviation:Low voltage, precordial leads:RSR' in V1 or V2, probably normal variant:When compared to prior tracing, sinus rhythm has replaced afib:Electronically Signed On 07-14-2025 2:38:00 EDT by KHOA MONTESINOS MD OTHER / Unknown 07/12/2025 2 :14 PM EDT Mary Anne Bennett MD ECG ORDERABLES Final Result [facility] EKG * Protime and INR (07/12/2025 5:20 AM EDT) Prothrombin Time 11.9 9.3 - 11.9 seconds 07/12/2025 5:52 AM EDT [facility] INR 1.16 0.89 - 1.18 07/12/2025 5:52 AM EDT [facility] Comment: RECOMMENDED INR THERAPEUTIC RANGES: STANDARD INTENSITY......2.0-3.0 HIGH INTENSITY..........2.5-3.5 Blood Venipuncture / Unknown 07/12/2025 5:20 AM EDT 07/12/2025 5:39 AM EDT Russ Denise MD LAB BLOOD ORDERABLES Final Resul t Performing Organization Address [facility] de Phone Number [facility] [address] [place] [address] * TSH (07/12/2025 5:20 AM EDT) TSH 1.22 0.36 - 3.74 uIU/mL 07/12/2025 6:[address] [facility] Blood Venipuncture / Unknown 07/12/2025 5:20 AM EDT 07/12/2025 5:41 AM EDT Russ Denise MD LAB BLOOD ORDERABLES Final Resul t Performing Organization Address [facility] de Phone Number [facility] [address] [place] [address] * Hemoglobin A1c (07/12/2025 5:20 AM EDT) Hemoglobin A1c 5.9 4.2 - 6.3 % 07/12/2025 11:[address] [facility] Comment: >=6.5% Diabetes* 5.7-6.4% Pre-Diabetes *These [...] DO LAB BLOOD ORDERABLES Final R esult [facility] [address] [place] [address] * Cardiac Misc.?? Result Scan (07/12/2025 12:00 AM EDT) us Provider Not In System CV CARDIAC REPORT (CVR) F inal Result * (ABNORMAL) Basic metabolic panel (07/11/2025 10:23 PM EDT) Glucose 180(H) 65 - 110 mg/dL 07/11/2025 11:[address] [facility] Comment: Non-fastin-110 mg/dL Fasting (minimum 6 hrs): 65-99 mg/dL BUN 9 7 - 18 mg/dL 07/11/2025 11:[address] [facility] Creatinine 0.76 0.55 - 1.02 mg/dL 07/11/2025 11:[address] [facility] Sodium 144 136 - 145 mmol/L 07/11/2025 11:[address] [facility] Potassium 3.6 3.5 - 5.1 mmol/L 07/11/2025 11:[address] [facility] Comment:Sample Slightly Hemo lyzed. Results may be falsely elevated due to hemolysis. Chloride 115(H) 98 - 107 mmol/L 07/11/2025 11:[address] [facility] CO2 24 21 - 32 mmol/L 07/11/2025 11:[address] [facility] Anion Gap 5 5 - 15 mmol/L 07/11/2025 11:[address] [facility] Calcium 8.8 8.5 - 10.1 mg/dL 07/11/2025 11:[address] [facility] eGFR (Creatinine) >60 >=60 mL/min/1.73 m2 07/11/2025 11:[address] [facility] Comment: [facility] utilizes CKD-EPI Creatinine 2020 to report eGFR. Values < 60 mL/min/1.73 m2 may indicate CKD if present for more than three months AND creatinine is at steady state. The eGFR provides a rough estimate of kidney function. For further guidance, please refer to the CKD: Adult Remote Sensing Technician Signature pathway. Creatinine Delta 0.02 See Comment 025 11:[address] [facility] Comment: Delta creatinine is the difference [...] MD LAB BLOOD ORDERABLES Final Res ult [facility] [address] [place] [address] * (ABNORMAL) Troponin T High Sensitivity, NO REFLEX (07/11/2025 10:23 PM EDT) [facility] High Sensitivity Troponin T 36(H) See Comment ng/L 07/11/2025 11:[address] [facility] Comment:High Sensitivity Tro ponin T levels should be interpreted in the context of the [facility] Care Signature pathway. Blood Venipuncture / Unknown 07/11/2025 10:23 PM EDT 07/11/2025 10:29 PM EDT Mary Anne Bennett MD LAB BLOOD ORDERABLES Final Res ult Performing Organization Address [facility] Co de Phone Number [facility] [address] [place] [address] * Reflex lactic acid, plasma (07/11/2025 5:32 PM EDT) Lactate 1.7 0.4 - 2.0 mmol/L 07/11/2025 6:[address] [facility] Blood Venipuncture / Unknown 07/11/2025 5:32 PM EDT 07/11/2025 5:43 PM EDT us Yeni Thakkar MD LAB BLOOD ORDERABLES Final Res ult Performing Organization Address [facility] de Phone Number [facility] [address] [place] [address] * CT ED Chest Abdomen Pelvis w [...] An alert has been created in the [facility] Radiology Results Notification System. Reported and signed by: Drew Marmolejo MD Narrative 07/11/2025 5:[address] ED CHEST ABDOMEN PELVIS W IV CONTRAST HISTORY: sepsis. COMPARISON: None. [id number] - RADIATION DOSE ACQUIRED DURING SCAN: 561.95 mGy.cm. The [facility] Imaging Department strives for high quality imaging [...] DOSE ACQUIRED DURING SCAN: 561.95 mGy.cm. The [facility] Imaging Department strives for high qualityimaging with [...] An alert has been created in the [facility] Radiology Results NotificationSystem. Reported and signed by: Drew Marmolejo MD Yeni Thakkar MD IMG CT ORDERABLES Final Result * Symptomatic 4 Plex -Order only on patients highly likely to be admitted. (07/11/2025 3:07 PM EDT) Influenza A Negative Negative 07/11/2025 3:51 PM EDT L + [facility] Comment:Negative results do not preclude [...] B Negative Negative 07/11/2025 3:[address] [facility] Respiratory Syncytial Virus Negative Negative 07/11/2025 3:[address] [facility] SARS-CoV-2 RNA (COVID-19) Negative Negative 07/11/2025 3:[address] [facility] Comment:Test performance has not been evaluated in asymptomatic patients. Negative results do not preclude SARS-CoV-2, Influenza A, Influenza B and/or RSV infection. The results of these tests should not be used as the sole basis for diagnosis, treatment, or other patient management decisions. Viral NASOPHARYNGEAL STRUCTURE / Unknown Collection / Unknown 07/11/2025 3:07 PM EDT 07/11/2025 3:11 PM EDT Yeni Thakkar MD MICROBIOLOGY - GENERAL ORDERAB LES Final Result [facility] [address] [place] [address] * (ABNORMAL) Urinalysis with culture reflex ([facility]) (07/11/2025 3:07 PM EDT) Clarity, UA Clear Clear 07/11/2025 3:[address] [facility] Color, UA Yellow Yellow, Colorless 07/11/2025 3:[address] [facility] Specific [place], UA 1.016 1.005 - 1.030 07/11/2025 3:[address] [facility] pH, UA 6.5 5.5 - 7.5 07/11/2025 3:[address] [facility] Protein, UA 1+(A) Negative, Trace 07/11/2025 3:[address] [facility] Glucose, UA Negative Negative 07/11/2025 3:[address] [facility] Ketones, UA 3+(A) Negative 07/11/2025 3:[address] [facility] Blood, UA Negative Negative 07/11/2025 3:[address] [facility] Bilirubin, UA Negative Negative 07/11/2025 3:[address] [facility] Leukocytes, UA Negative Negative 07/11/2025 3:[address] [facility] Nitrite, UA Negative Negative 07/11/2025 3:[address] [facility] Urobilinogen, UA <2.0 <=2.0 mg/dL 07/11/2025 3:[address] [facility] Moon Top Tube Received ? Yes 07/11/2025 3:[address] [facility] Urine URINE SPECIMEN OBTAINED BY CLEAN CATCH PROCEDURE / Unknown Collection / Unknown 07/11/2025 3:07 PM EDT 07/11/2025 3:12 PM EDT Yeni Thakkar MD URINE ORDERABLES Final Result Performing Organization Address [facility] Co de Phone Number [facility] [address] [place] [address] * UA reflex to culture (07/11/2025 3:07 PM EDT) Reflex Urine Culture See Comment 07/11/2025 7:00 PM EDT [facility] MEDICINE Urine URINE SPECIMEN OBTAINED BY CLEAN CATCH PROCEDURE / Unknown Collection / Unknown 07/11/2025 3:07 PM EDT 07/11/2025 3:11 PM EDT Narrative [facility] OF [facility]ORATORY MEDICINE - 07/11/2025 7:00 PM EDT Urine culture will be reflexed if indicated by urinalysis results. Please check microbiology results for urine culture. us Yeni Thakkar MD URINE ORDERABLES Final Result [facility]AT[facility] MEDICINE [address] [place] [address], [facility] [phone] * Urine microscopic ([facility]) (07/11/2025 3:07 PM EDT) RBC/HPF, UA 2 0 - 2 /HPF 07/11/2025 3:39 PM EDT + [facility] WBC/HPF, UA 1 0 - 5 /HPF 07/11/2025 3:[address] [facility] Bacteria, UA Rare None-Rare /HPF 07/11/2025 3:[address] [facility] Urine Squamous Epithelial Cells, UA 1 0 - 5 /HPF 07/11/2025 3:[address] [facility] Urine URINE SPECIMEN OBTAINED BY CLEAN CATCH PROCEDURE / Unknown Collection / Unknown 07/11/2025 3:07 PM EDT 07/11/2025 3:12 PM EDT us Yeni Thakkar MD URINE ORDERABLES Final Result [facility] [address] [place] [address] * Procalcitonin (07/11/2025 2:31 PM EDT) Procalcitonin 0.05 See Comment ng/mL 07/11/2025 7:44 PM EDT + [facility] Comment: Procalcitonin Value Likelihood of [...] 2:31 PM EDT 07/11/2025 2:38 PM EDT Russ Denise MD LAB BLOOD ORDERABLES Final Resul t [facility] [address] [place] [id number] * (ABNORMAL) Lactic acid, plasma (reflex 2h repeat) (07/11/2025 2:31 PM EDT) Lactate 2.1(H) 0.4 - 2.0 mmol/L 07/11/2025 2:[address] [facility] Blood Venipuncture / Unknown 07/11/2025 2:31 PM EDT 07/11/2025 2:38 PM EDT us Yeni Thakkar MD LAB BLOOD ORDERABLES Final Res ult Performing Organization Address [facility] Co de Phone Number [facility] [address] [place] [id number] * Troponin T High Sensitivity, 1 Hour With Reflex ([facility]) (07/11/2025 2:31 PM EDT) [facility] High Sensitivity Troponin T <6 See Comment ng/L 07/11/2025 3:[address] [facility] Comment:High Sensitivity Tro ponin T levels should be interpreted in the context of the [facility] Care Signature pathway. 1 hour Delta from 0 Hour, HS-Troponin T 0 ng/L 07/11/2025 3:[address] [facility] Blood Venipuncture / Unknown 07/11/2025 2:31 PM EDT 07/11/2025 2:38 PM EDT us Asmita Irving MD LAB BLOOD ORDERABLES Final Res ult Performing Organization Address [facility] de Phone Number [facility] [address] [place] [phone] * Blood culture (07/11/2025 2:31 PM EDT) Only the most recent of2 resultswithin the time period is included. [facility] Blood Culture No Growth after 5 days of incubation 07/16/2025 9:46 PM EDT [facility]ATORY MEDICINE Blood PERIPHERAL BLOOD SPECIMEN / Unknown Venipuncture / Unknown 07/11/2025 2:31 PM EDT 07/11/2025 2:47 PM EDT Narrative [facility] DEPARTMENT OF LABORATORY MEDICINE - 07/16/2025 9:46 PM EDT All blood culture bottles with growth will be reported. Culture, organism identification, and/or susceptibility results may have been generated with a non-FDA approved method. All methods used in this report have been validated by [facility] Microbiology for clinical use. Anaerobic bottle loaded. Aerobic bottle loaded. Yeni Thakkar MD MICROBIOLOGY - GENERAL ORDERAB LES Final Result [facility] MEDICINE [address] [place] [id number], [facility] [phone] * XR Chest PA or AP (07/11/2025 12:53 PM EDT) Anatomical Region Laterality Modality Chest Radiographic Jinny ging 07/11/2025 1:13 PM EDT Impressions 07/11/2025 1:13 PM EDT No acute process is seen. [facility] Radiology Notification System Classification: Routine. Reported and [...] intact. IMPRESSION: No acute process is seen. [facility] Radiology Notification System Classification: Routine. Reported and signed by: Domenic Beltran MD Asmita Irving MD IMG DIAGNOSTIC IMAGING ORDERAB LES Final Result * TSH w/reflex to FT4 (07/11/2025 12:47 PM EDT) TSH 1.53 0.36 - 3.74 uIU/mL 07/11/2025 1:44 PM EDT [facility] [facility] Blood Venipuncture / Unknown 07/11/2025 12:47 PM EDT 07/11/2025 12:51 PM EDT Yeni Thakkar MD LAB BLOOD ORDERABLES Final Res ult Performing Organization Address [facility] de Phone Number [facility] [address] [place] [address] * Troponin T High Sensitivity, Emergency; 0 hour baseline AND 1 hour with reflex (3 hour) (2:47 PM EDT) [facility] High Sensitivity Troponin T <6 See Comment ng/L 07/11/2025 1:[address] [facility] Comment:High Sensitivity Tro ponin T levels should be interpreted in the context of the [facility] Care Signature pathway. Blood Venipuncture / Unknown 07/11/2025 12:47 PM EDT 07/11/2025 12:51 PM EDT us Asmita Irving MD LAB BLOOD ORDERABLES Final Res ult Performing Organization Address [facility] [address] [place] [address] * (ABNORMAL) D-dimer, quantitative (07/11/2025 12:47 PM EDT) [facility] D-Dimer 0.62(H) <0.50 mg/L FEU 07/11/2025 1:[address] [facility] Comment: CLINICAL CUT OFF VALUE 0.50 [...] ORDERABLES Final Res ult Performing Organization Address [facility] de Phone Number [facility] [address] [place] [address] from Last 3 Months Insurance BCBS BCBS BCBS [place] [phone] Advance Directives * Full Code (Latest Code Status on File) Date Activated Date Inactivated Comments 07/11/2025 6:20 PM 07/13/2025 5:38 PM Question Answer Comments With Whom was the Code Status Discussed? Patient Care Teams [employer] Truck [employer] Relationship Specialty Start Date End Date Ursula Squires MD [facility] [place] [address] PCP - General Internal Medicine 07/11/25
--- OUTSIDE RECORDS SUMMARY | 2025-08-25 09:36 | XMS_ITS | Patient Health Record ---
Author Organization [facility] Address [address] [place] [address] Care Team Providers Care Melt House Supervisor Name Role Phone Ursula Squires MD Primary Care Provider Kristin Chavarria Unavailable [phone] Allergies No Known Allergies Reason For Referral No Information Medications Medication SIG (Take, Route, Fr equency, Duration) Notes Start Date End Date Status dilTIAZem HCl 120 MG as directed Orally Active Omeprazole 20 MG 1 capsule 1/2 to 1 h our before morning meal Orally Once a day A ctive Eliquis 5 MG as directed Orally Active Meloxicam 15 MG 1 tablet Orally Once a day; Duration: 30 day(s) 07/28/2025 Active Social History Tobacco Use: Social History Observation Description Date Details (start date - stop date) Never Smoker NA - NA Tobacco use other than smoking: Question Answer Notes Are you an other tobacco user? No Tobacco Control (Standard) Question Answer Notes Tobacco use: Nonsmoker Additional Findings: Tobacco non-user Current no nsmoker AUDIT-C (Standard) Question Answer Notes Did you have a drink containing alcohol in the p ast year? No Points 0 Interpretation Negative Problems Problem Type SNOMED Code ICD Code Onset Dates Problem Status W/U Status Risk Notes Problem Plantar fascial fibromatosis (48854929) Plantar fasciitis, bilateral (M72.2) Active confirmed Vital Signs Blood pressure diastolic 70 mm Hg 07/28/2025 Height 5ft 2in in 07/28/2025 Blood pressure systolic 120 mm Hg 07/28/2025 Weight 160 lbs 07/28/2025 BMI 29.26 kg/m2 07/28/2025 Encounters Encounter Location Date Provider Diagnosis [facility] [address] [place] [address] 07/28/2025 Kristin Martinez Pain in right foot M79.671 ; Plantar fasciitis, bilateral M72.2 ; Calcaneal spur, right foot M77.31 ; Other myositis of right foot M60.871 ; Bursitis of right foot M77.51 ; Pain in left foot M79.672 ; Calcaneal spur, left foot M77.32 ; Other myositis of left foot M60.872 and Bursitis of left foot M77.52 [facility] [address] [place] [address] 07/29/2025 Kristin Martinez Assessments Encounter Date Diagnosis (ICD Code) Assessment Notes Treatment Notes Treatment Clinical Notes Section Notes 07/28/2025 Pain in right foot (ICD-10 - M79.671) 07/28/2025 Plantar fasciitis, bilateral (ICD-10 - M72.2) Patient Educated with: HEEL CORD STRETCHES.pdf (HEEL CORD STRETCHES.pdf) Patient Educated with: RICE THERAPY.pdf (RICE THERAPY.pdf) 07/28/2025 Calcaneal spur, right foot (ICD-10 - M77.31) 07/28/2025 Other myositis of right foot (ICD-10 - M60.871) 07/28/2025 Bursitis of right foot (ICD-10 - M77.51) 07/28/2025 Pain in left foot (ICD-10 - M79.672) 07/28/2025 Calcaneal spur, left foot (ICD-10 - M77.32) 07/28/2025 Other myositis of left foot (ICD-10 - M60.872) 07/28/2025 Bursitis of left foot (ICD-10 - M77.52) Plan Of Treatment Pending Test Test Name Order Date X ray : Foot, left 3V 07/28/2025 X ray : Foot, right 3V 07/28/2025 Next Appt Details Provider Name:Kristin Cote yue, 09/08/2025 01:30:00 PM, [address] [place] [address], [id number], Insurance Providers Payer Name Payer Address Payer Phone Subscriber Number Group Number Insured Name Patient Relationship to Insured Coverage Start Date Coverage End Date [facility] [address] [place] [address] [id number] Tahmina Lo Self - patient is the insured Medical (General) History Medical History History ICD Code Back,Hip,and Knee pain Cancer covid-19 Measles Mumps Chicken pox A fib Surgical History Surgery Date(Month/Year) 1984 hysterectomy 2021 eyelid surgery 1998 A fib 06/2025
== END 2025-08-25 09:37 | disposition home or self-care (01) ==
LOC: HO.HMCC 08:48
PROVIDERS: PCP Internal Medicine; Visit Provider Internal Medicine
DX: H81.10 Benign paroxysmal vertigo, unspecified ear (principal); I48.91 Unspecified atrial fibrillation

== ENCOUNTER 2025-10-06 09:22 | Outpatient (AMB) | payer BC, SELFPAY ==
[2025-10-06 09:24] VITALS: BP 124/80; PULSE 84; RESP 17; TEMP 36.6; O2SAT 97; BMI 32.6
--- NOTE | 2025-10-06 09:24 | A.OFFPC_ITS ---
Vital Signs 10/06/25 09:24 Height 5 ft Weight 167 lb BMI 32.6 BP 124/80 Blood Pressure Location Lt brachial Position Sitting Respiration 17 Pulse 84 Pulse Source Pulse Oximeter Temp 97.8 F Temp Source Oral Pulse Oximetry (%) 97 Oxygen Delivery Method Room Air Intake Visit Reasons: Follow up Intake Note: Pt is here today for a follow up visit. Allergies pravastatin Adverse Reaction (Intermediate, Verified 10/06/25 09:25) myalgia Medication List - Last Reconciled 10/06/25 by Ursula Squires MD Advair Diskus 100-50 mcg/dose (fluticasone propion-salmeterol) 1 inh inhalation BID NS albuterol sulfate 90 mcg/actuation 2 puffs inhalation Q6H PRN cholecalciferol (vitamin D3) 50 mcg PO DAILY stephan.stocking,knee,reg,smal As directed meclizine 25 mg PO BID PRN omeprazole 20 mg PO DAILY ondansetron 4 mg PO Q8H rosuvastatin (Crestor) 5 mg PO DAILY Tobacco use date assessed: 10/06/25 Fall risk assessment: No Falls in past year Last assessed Fall Risk: 10/06/25 Dental Screening Dental Screen Date: 06/25/25 HPI Follow up HPI Details Pt c/o positional vertigo, feeling off balance when waking for a few weeks. Pt denies weakness or numbness in extremities, dysphagia, change in the vision or speech. The symptoms started after patient was diagnosed with new onset AFib. She denies recurrent palpitations chest pain or shortness or breath. Patient has stopped taking Eliquis and Cardizem as recommended by quality assurance coordinator at [facility]. She has been monitor her heart rate by [employer] monitor. hyperlipid is stable on Crestor. Patient complains of bitter taste in her mouth and intermittent epigastric abdominal discomfort. Patient has been taking omeprazole daily but has a history of H pylori which was treated with a course of antibiotics a few years ago. [facility] Medical History (Updated 10/06/25 @ 10:04 by Ursula Squires MD) A-fib Shoulder pain, right Normal pelvic exam Normal breast exam GERD (gastroesophageal reflux disease) Annual physical exam Cough Abdominal pain Surgical History Hx of colonoscopy Family History Father No problems noted. Mother No problems noted. 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 Alvarez Alvarez, Zoraida Rodgers, Daniel Hollingsworth and colleagues, with an educational cielo from [employer]. Review of Systems Const All systems reviewed & are unremarkable except as noted in HPI and below Eyes Reports no additional complaints ENT Reports no additional complaints Card Reports no additional complaints Resp Reports no additional complaints GI Reports no additional complaints Reports no additional complaints Physical exam (Primary Care) Vital Signs: Last Vital Signs Temp 97.8 F 10/06/25 09:24 Pulse 84 10/06/25 09:24 Resp 17 10/06/25 09:24 BP 124/80 10/06/25 09:24 Pulse Ox 97 10/06/25 09:24 Oxygen Delivery Method Room Air 10/06/25 09:24 BMI result Body Mass Index 32.6 Tobacco/Smoking Status: Tobacco use Status Tobacco use date assessed 10/06/25 10/06/25 09:29 Patient Tobacco Use Status Former Tobacco user 10/06/25 09:29 e-Cigarette/Vaping Use Never Used 10/06/25 09:29 Thrive Assessment: Date of Thrive Assessment Date Thrive assessed 01/13/25 10/06/25 09:29 Const General: no acute distress HENMT Head: Yes normal to inspection Face and sinus: Yes normal facial exam Mouth: Normal oral and palatal mucosa present Throat: Yes posterior oropharynx normal and Yes postnasal drainage Eyes General: appearance normal, both eyes and all related structures Neck Neck: Yes no lymphadenopathy and Yes supple Resp Effort & Inspection: normal respiratory effort Auscultation: clear to auscultation bilaterally Cardio Rhythm: regular rhythm Heart sounds: S1 normal heart sound present and S2 normal heart sound present GI Inspection: Yes normal to inspection Palpation (GI): Soft to palpation Percussion: Yes normal to percussion Auscultation: normal bowel sounds Neuro Cranial nerves: Yes CN's II-XII intact bilaterally Gait exam (Neuro): Staggering gait present (when tandem walking) Motor exam (neuro): 5/5 motor strength present throughout Romberg Test: Positive Extrem General: Yes no clubbing, cyanosis or edema Coding Level of Care Code Est Pt Level 4 (54560) Diagnoses H. pylori infection A04.8 CVA (cerebral vascular accident) I63.9 A-fib I48.91 Hyperlipidemia E78.5 Endometrial adenocarcinoma C54.1 Assessment & Plan Assessment & Plan (1) H. pylori infection: Code(s): A04.8 - Other specified bacterial intestinal infections Category: Medical Plan: Check stool H pylori. Patient was advised to stop taking PPI for 1 week before (2) CVA (cerebral vascular accident): Code(s): I63.9 - Cerebral infarction, unspecified Category: Medical Plan: For new onset vertigo with positive Romberg and history of AFib obtain MRI of the brain to evaluate for CVA, cerebellar infarct (3) A-fib: Comment: New onset AFib triggered by motion sickness, hospitalized in [place] 07/13/25, STARTED ON DILTIAZEM AND ELIQUIS, seen by Dr.Fox Flores, pt will stop Diltiazem and Eliquis and monitor with Kardia Code(s): I48.91 - Unspecified atrial fibrillation Category: Medical Plan: Follow-up with the quality assurance coordinator, patient's off diltiazem and Eliquis (4) Hyperlipidemia: Comment: Intolerant to pravastatin, myalgia Code(s): E78.5 - Hyperlipidemia, unspecified Category: Medical Plan: Continue statin (5) Endometrial adenocarcinoma: Comment: stage 1A , 08/11 s/p MADDISON/BSO f/u with [facility] Oncology Code(s): C54.1 - Malignant neoplasm of endometrium Category: Medical Plan: Follow-up with lab rep Orders: Orders MR head/brain wo con Today I63.9 - Cerebral infarction, unspecified, R29.818 - Other symptoms and signs involving the nervous system H pylori Ag Stool Today A04.8 - Other specified bacterial intestinal infections Medications: Discontinued diltiazem HCl CD Discontinued Reason: Doctor's Order 120 mg PO DAILY 90 caps 0RF dicyclomine Discontinued Reason: Doctor's Order 10 mg PO TID 90 caps 2RF Eliquis (apixaban) Discontinued Reason: Doctor's Order 5 mg PO BID 180 tabs 0RF NS
== END 2025-10-06 10:27 | disposition home or self-care (01) ==
LOC: HO.HMCC 09:22
PROVIDERS: PCP Internal Medicine; Visit Provider Internal Medicine
DX: I63.9 Cerebral infarction, unspecified (principal); I48.91 Unspecified atrial fibrillation; C54.1 Malignant neoplasm of endometrium; A04.8 Other specified bacterial intestinal infections; E78.5 Hyperlipidemia, unspecified

== ENCOUNTER 2025-10-24 09:15 | Outpatient (REF) | payer BC, SELFPAY | END 2025-10-24 09:16 | disposition home or self-care (01) | LOC: HO.HMGCLNP 09:15 | PROVIDERS: PCP Internal Medicine; Visit Provider Internal Medicine | DX: A04.8 Other specified bacterial intestinal infections (principal) | CPT/HCPCS: 87338 ==